=== PATIENT | female | born 1970 | race African-American/Black ===

== ENCOUNTER 2024-09-01 13:43 | Inpatient (IN) ==
--- NOTE | 2024-09-01 15:56 | Emergency Department Note ---
Impression & Plan Cervical radiculopathy, Chest pain, Hypertension, Uncontrolled pain ED Provider Note CHIEF COMPLAINT: Neck pain HISTORY OF PRESENTING ILLNESS: This 54-year-old female patient presents to the emergency department for evaluation of neck pain. The patient states that she injured the left side of her neck on 08/15/2024. 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 The patient states that she was seen at the [facility] and was also seen by orthopedics and had x-rays and MRIs performed. She states she was prescribed meloxicam, lidocaine patches, and prednisone without improvement of her symptoms. The pain is on the left side of her neck radiating into her left arm and left shoulder. She was prescribed Plaquenil, but it caused too many side effects and she had to stop them. She was started on a muscle relaxer without improvement of her symptoms. She has also tried Voltaren ointment, heat, ice, and Tylenol with no improvement. The patient is on a waiting list to see pain management and is also in the process of getting set up with physical therapy. The patient states that she is here for pain relief to be able to make it to her appointment with pain management on 09/05/24. She rates her discomfort as 10/10. The pain is limiting her from doing her normal activities, doing her work, and causes her to wake up from sleep frequently due to the pain. She denies abdominal pain, nausea, or vomiting. Sometimes has some pain radiating into her chest. Increased pain with taking a deep breath, but not really SOB. X-rays of the left shoulder on 08/16/2024 showed no acute fracture, dislocation, or significant degenerative change. X-rays of the cervical spine on 08/18/2024 showed degenerative changes, but no acute fracture, subluxation, or other acute abnormalities. The patient's orthopedic office visit from 08/18/2024 was reviewed and they suspected cervical spine pathology with radicular left arm pain. They recommended she follow-up with physical therapy, pain management, and spine surgery. They ordered the MRI of the cervical spine. MRI of the cervical spine without contrast on 08/21/2024 showed multilevel degenerative changes of the cervical spine, most advanced at C5/C6 and C6/C7. Spinal canal narrowing most severe at C6/C7 and of a slightly lesser degree at C5/C6. 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 Varying degrees of bilateral neuroforaminal narrowing including severe narrowing at C5/C6 and C6/C7. High-grade left neuroforaminal narrowing at C7/T1 has slightly increased which is potentially contributing to the symptoms. REVIEW OF SYSTEMS: See HPI for pertinent positives and pertinent negatives. ALLERGIES: Red dye MEDICATIONS: See below PAST MEDICAL HISTORY: See below PHYSICAL EXAM: VITALS: Vitals are noted on the nurse's note and reviewed by myself. GENERAL: Non toxic, in no acute distress, non-diaphoretic. SKIN: No erythema, edema, or abnormal rashes noted to the area of discomfort. Capillary refill <2 sec. EYES: PERRLA. EOMI. Conjunctivae without injection, sclerae without icterus. NOSE: Patent without discharge. MOUTH: Mucous membranes moist. Uvula midline. Airway patent. NECK: Supple without nuchal rigidity. The patient is tender to palpation mainly over the left-sided paraspinal muscles, the left trapezius muscles, and the left sternocleidomastoid muscles. She is able to move her neck, but with increased pain with looking to the right. HEART: Regular rate and rhythm without murmurs gallops or rubs. LUNGS: Clear to auscultation bilaterally without wheezes, rales or rhonchi. No retractions or accessory muscle use. CHEST: Mild tenderness to palpation over the left anterior chest wall. No fracture crepitus or flail chest noted. ABDOMEN: Positive bowel sounds x 4. Normal tympanic percussion. Soft, nontender to palpation. No masses or hepatosplenomegaly. Jenkins sign negative. No CVA tenderness. No guarding, rigidity, or rebound tenderness. No focal RLQ or LLQ tenderness. MUSCULOSKELETAL: The patient is tender to palpation over the musculature of the left shoulder. She also has some left humerus tenderness that she feels is more in her bone rather than her muscles. No other bony tenderness to palpation of the left upper extremity. Decreased range of motion of the left shoulder due to the muscle spasm and pain. Radial pulse 2+. No erythema, edema, warmth, or cording of the left upper extremity noted. Normal sensation to light and sharp touch of the left upper extremity. NEURO: Patient was alert and oriented. No focal neurological deficits. DIFFERENTIAL DIAGNOSIS: Differential diagnosis includes cervical strain, fracture, cervical disc disease, lymphadenitis, meningitis, tumor, arterial dissection, thyroiditis, parotitis, mastoiditis, neurologic, angina, HI, pericarditis, myocarditis, aortic dissection, pleurisy, pneumothorax, PE, pneumonia, pneumomediastinum, esophagitis, esophageal spasm, GERD, perforated esophagus, perforated duodenal/gastric ulcer, pancreatitis, cholecystitis, costochondritis, musculoskeletal, bronchitis, URI, or others. ED COURSE AND MEDICAL DECISION MAKING: MEDICATIONS GIVEN: Valium 5 mg IV, Toradol 10 mg IV, Tylenol 1000 mg IV, morphine 4 mg IV, Zofran 4 mg IV, Decadron 10 mg IV, Benadryl 50 mg IV. There is currently a severe shortage of IV fluids. The patient's condition was assessed and did not meet hospital criteria for IV fluid administration at this time. Therefore, IV fluids were not given. MONITOR: Continuous construction secretary: Order was placed for continuous construction secretary. Patient was placed on the construction secretary and continuous pulse ox. Patient was noted to be in normal sinus rhythm at an initial rate of 96 bpm per my interpretation. EKG: EKG was interpreted by myself as normal sinus rhythm at 92 bpm with no acute ST or T wave changes and no significant change from her previous EKG. INTERPRETATION OF LABS: I interpreted the labs with full lab results as below in the lab section of this note. Laboratory results pertinent to the emergent complaint are discussed in the MDM section below. The patient was advised to follow up with their PCP and/or specialist(s) for further outpatient monitoring and management of any abnormal results. INTERPRETATION OF IMAGING: Imaging studies were interpreted by myself and read by radiology as per the imaging section of this note. The patient was advised to follow up with their PCP and/or specialist(s) for further outpatient management of any non-emergent abnormal findings. X-rays of the left humerus were negative for acute fracture or dislocation. CTA of the chest with IV contrast showed no evidence for PE. There is cardiomegaly with evidence of right heart dysfunction. EXTERNAL RECORDS REVIEWED: I reviewed the patient's outpatient [facility] records and imaging studies as summarized above. CONSULTATIONS: On-call hospitalist [facility] SUMMARY: I examined the patient. The patient developed pain to the left side of her neck on 08/15/2024 after lifting a heavy box while moving things in her office. She was seen at the [facility] walk-in clinic as well as by [facility] orthopedics. She has had x-rays and MRIs performed as above. She has tried multiple medications as above without improvement of her symptoms. She has an appointment with pain management on 09/05/24 and is in the process of getting in with physical therapy as well. However, the patient states that she still is having significant pain that is not well-controlled. An IV lock was placed and labs were drawn. CBC without leukocytosis, anemia, or thrombocytopenia. Coags were normal. Glucose 107, but CMP was otherwise normal. Lipase normal. High-sensitivity troponin normal. X-rays of the left humerus were negative for acute fracture or dislocation. CTA of the chest with IV contrast showed no evidence for PE. There is cardiomegaly with evidence of right heart dysfunction. The patient required multiple medications for her symptoms as above. She has also failed multiple medications as an outpatient as discussed above. The patient's blood pressure remains significantly elevated despite multiple medications to control her pain as above. I had a meaningful discussion about this patient with Dr. Manzo who agrees with my assessment and the treatment plan. Due to the patient's continued significant pain, her MRI findings, her elevated blood pressure, and the CTA findings, we feel the patient would benefit from admission for further evaluation and treatment. The patient can undergo further cardiac workup if indicated. It can also be determined whether the patient's elevated blood pressure was secondary to a hypertensive crisis or just poorly controlled high blood pressure. The patient has had trouble getting in with physical therapy, pain management, and spinal surgery as an outpatient and this may be able to be facilitated during her inpatient stay. I spoke with the on-call hospitalist who agreed to admit the patient for further evaluation and treatment. Please refer to their dictation for further details. The patient's care was transferred in stable condition. DIAGNOSIS: Cervical radiculopathy Chest pain Hypertensive crisis vs poorly controlled hypertension Uncontrolled pain Past Med/Surg History Problem List (Updated 09/02/24 @ 01:28 by Arabella Fuentes PA-C) Uncontrolled pain (Acute) Hypertension (Acute) Chest pain (Acute) Cervical radiculopathy (Acute) No pertinent past medical history Calf pain (Acute) Medical History H/O: HTN (hypertension) Surgical History No pertinent past surgical history Social History Smoking Status: Never smoker Preferred Language: Indonesian Feels Safe at Home: Yes Allergies Allergies Allergy/AdvReac Type Severity Reaction Status Date / Time red dye Allergy Severe welts/hives Unverified 11/11/20 20:56 all over body Home Meds Home Medications Medication Instructions Recorded Confirmed biotin 1,000 mcg chewable tablet 1,000 mcg PO DAILY 08/07/20 11/11/20 cholecalciferol (vitamin D3) 125 125 mcg PO DAILY 08/07/20 11/11/20 mcg (5,000 unit) tablet (Vitamin D3) elderberry fruit 0.7 gram-honey 3 15 ml PO DAILY 08/07/20 11/11/20 gram/7.5 mL oral liquid elderberry fruit 200 mg capsule 1,000 mg PO DAILY 08/07/20 11/11/20 ferrous sulfate 325 mg (65 mg 325 mg PO DAILY 08/07/20 11/11/20 iron) capsule,extended release hydrochlorothiazide 12.5 mg capsule 12.5 mg PO QAM 08/07/20 11/11/20 ibuprofen 200 mg tablet 800 mg PO Q6H PRN fever/pain 08/07/20 11/11/20 lysine 1,000 mg tablet 1,000 mg PO DAILY 08/07/20 11/11/20 multivitamin 1 tab PO DAILY 08/07/20 11/11/20 multivitamin with minerals 1 tab PO DAILY 08/07/20 11/11/20 (Hair,Skin and Nails tablet) omeprazole 20 mg capsule,delayed 20 mg PO QAM 08/07/20 11/11/20 release potassium 99 mg tablet 99 mg PO QAM 08/07/20 11/11/20 soy isoflavone 56 mg-black cohosh 1 cap PO DAILY 08/07/20 11/11/20 ext 40 mg-Cissus ext 300 mg capsule ([facility] [facility]) valacyclovir 500 mg tablet 500 mg PO DAILY PRN flare ups 11/11/20 11/11/20 Previous Rx's Medication Instructions Recorded naproxen 500 mg tablet 500 mg PO BID PRN pain #20 tabs 07/02/23 Results & Data (ED) Vital Signs Vital Signs - 24 hr 09/01/24 13:53 09/01/24 16:11 09/01/24 16:30 Temperature 36.6 C Temperature Source Temporal Artery Scan Pulse Rate 101 H 98 H 91 H Pulse Rate from SpO2 Sensor 94 H Pulse Rhythm Regular Respiratory Rate 17 18 23 Blood Pressure 180/128 H 193/110 H Blood Pressure Mean 145 133 Pulse Oximetry 98 98 99 Oxygen Delivery Method Room Air Room Air Sepsis Recent Fever Within 48 Hours No Sepsis New/Unexplained Change in Mental Status N/A Sepsis Action Taken by Nursing No Action Required 09/01/24 16:34 09/01/24 17:00 09/01/24 19:00 Temperature Temperature Source Pulse Rate 90 107 H 95 H Pulse Rate from SpO2 Sensor Pulse Rhythm Respiratory Rate 14 18 Blood Pressure 175/110 H 190/120 H Blood Pressure Mean 131 143 Pulse Oximetry 98 97 Oxygen Delivery Method Room Air Sepsis Recent Fever Within 48 Hours Sepsis New/Unexplained Change in Mental Status Sepsis Action Taken by Nursing 09/01/24 20:28 09/01/24 21:49 09/01/24 22:00 Temperature Temperature Source Pulse Rate 79 106 H Pulse Rate from SpO2 Sensor Pulse Rhythm Respiratory Rate 16 18 Blood Pressure 159/101 H 205/129 H 190/116 H Blood Pressure Mean 120 154 152 Pulse Oximetry 96 95 Oxygen Delivery Method Sepsis Recent Fever Within 48 Hours Sepsis New/Unexplained Change in Mental Status Sepsis Action Taken by Nursing 09/01/24 22:00 09/01/24 22:21 09/01/24 22:36 Temperature Temperature Source Pulse Rate 104 H 106 H 107 H Pulse Rate from SpO2 Sensor 105 H 106 H 107 H Pulse Rhythm Respiratory Rate 18 15 16 Blood Pressure Blood Pressure Mean Pulse Oximetry 95 94 94 Oxygen Delivery Method Sepsis Recent Fever Within 48 Hours Sepsis New/Unexplained Change in Mental Status Sepsis Action Taken by Nursing 09/01/24 23:00 09/01/24 23:00 09/01/24 23:00 Temperature Temperature Source Pulse Rate 105 H Pulse Rate from SpO2 Sensor 103 H Pulse Rhythm Respiratory Rate 20 Blood Pressure 161/105 H 161/105 H Blood Pressure Mean 128 128 Pulse Oximetry 94 Oxygen Delivery Method Sepsis Recent Fever Within 48 Hours Sepsis New/Unexplained Change in Mental Status Sepsis Action Taken by Nursing 09/01/24 23:00 09/01/24 23:00 09/01/24 23:00 Temperature Temperature Source Pulse Rate 95 H Pulse Rate from SpO2 Sensor Pulse Rhythm Respiratory Rate Blood Pressure 161/105 H 161/105 H 161/105 H Blood Pressure Mean 128 128 128 Pulse Oximetry 96 Oxygen Delivery Method Sepsis Recent Fever Within 48 Hours Sepsis New/Unexplained Change in Mental Status Sepsis Action Taken by Nursing 09/01/24 23:36 09/01/24 23:54 09/02/24 00:00 Temperature Temperature Source Pulse Rate 98 H 99 H Pulse Rate from SpO2 Sensor 99 H 99 H Pulse Rhythm Respiratory Rate 15 17 Blood Pressure 198/111 H 161/106 H Blood Pressure Mean 140 132 Pulse Oximetry 96 95 Oxygen Delivery Method Sepsis Recent Fever Within 48 Hours Sepsis New/Unexplained Change in Mental Status Sepsis Action Taken by Nursing 09/02/24 00:00 09/02/24 00:06 09/02/24 00:18 Temperature Temperature Source Pulse Rate 98 H 99 H Pulse Rate from SpO2 Sensor 99 H 99 H Pulse Rhythm Respiratory Rate 17 16 Blood Pressure 161/106 H Blood Pressure Mean 132 Pulse Oximetry 96 96 Oxygen Delivery Method Sepsis Recent Fever Within 48 Hours Sepsis New/Unexplained Change in Mental Status Sepsis Action Taken by Nursing 09/02/24 00:20 09/02/24 00:20 09/02/24 00:20 Temperature Temperature Source Pulse Rate Pulse Rate from SpO2 Sensor Pulse Rhythm Respiratory Rate Blood Pressure 177/120 H 177/120 H 177/120 H Blood Pressure Mean 138 138 138 Pulse Oximetry Oxygen Delivery Method Sepsis Recent Fever Within 48 Hours Sepsis New/Unexplained Change in Mental Status Sepsis Action Taken by Nursing 09/02/24 00:30 09/02/24 00:30 Temperature Temperature Source Pulse Rate 99 H Pulse Rate from SpO2 Sensor 100 H Pulse Rhythm Respiratory Rate 15 Blood Pressure 155/92 H Blood Pressure Mean 110 Pulse Oximetry 95 Oxygen Delivery Method Sepsis Recent Fever Within 48 Hours Sepsis New/Unexplained Change in Mental Status Sepsis Action Taken by Nursing Laboratory Data 09/01/24 16:25 09/01/24 16:25 Lab Results 09/01/24 Range/Units 16:25 WBC 6.76 (4.8-10.8) K/ul RBC 4.17 L (4.20-5.40) M/uL Hgb 12.5 (12.0-16.0) g/dl Hct 37.7 (37.0-47.0) % MCV 90.4 (80.0-100.0) fL MCH 30.0 (25.0-34.0) pg MCHC 33.2 (32.0-36.0) g/dL RDW Std Deviation 42.9 (36.4-46.3) fL RDW Coeff of Alfie 13.0 (11.5-14.5) % Plt Count 252 (130-400) K/uL MPV 9.9 (9.4-12.4) fL Immature Gran % (Auto) 0.3 % Neut % (Auto) 61.7 % Lymph % (Auto) 31.2 % Hardeman % (Auto) 5.8 % Eos % (Auto) 0.7 % Baso % (Auto) 0.3 % Neut # (Auto) 4.17 (1.40-6.50) K/uL Lymph # (Auto) 2.11 (1.20-3.40) K/uL Hardeman # (Auto) 0.39 (0.11-0.59) K/uL Eos # (Auto) 0.05 (0.00-0.50) K/uL Baso # (Auto) 0.02 (0.00-0.20) K/uL Immature Gran # (Auto) 0.02 (0.01-0.20) K/uL PT 10.3 (9.0-12.0) Seconds INR 0.9 (0.9-1.1) APTT 24 (21-31) Seconds PTT Ratio 0.9 Sodium 139 (136-145) mmol/L Potassium 3.6 (3.5-5.1) mmol/L Chloride 101 (98-107) mmol/L Carbon Dioxide 31 (21-32) mmol/L Anion Gap 7 (3-11) BUN 12 (6-23) mg/dl Creatinine 0.69 (0.6-1.2) mg/dl Est Cr Clr Drug Dosing Not Reportable eGFR 104.36 BUN/Creatinine Ratio 17.4 (10-20) Glucose 107 H (70-99(Fasting)) mg/dl Calcium 9.3 (8.6-10.3) mg/dl Total Bilirubin 0.6 (0.2-1.0) mg/dl AST 25 (13-39) U/L ALT 45 (7-52) U/L Alkaline Phosphatase 80 (34-104) U/L Troponin I High Sens 8.7 (0-14) pg/ml Total Protein 8.2 (6.0-8.3) gm/dl Albumin 4.4 (3.4-5.0) gm/dl Globulin 3.8 (2.5-4.0) gm/dl Albumin/Globulin Ratio 1.2 (0.9-2) Lipase 16 (11-82) U/L Administered Medications Discontinued Medications Dexamethasone Sodium Phosphate (DexamethasonePf 10 Mg/Ml Vial) 10 mg IV NOW ONE Stop: 09/01/24 19:04 Last Admin: 09/01/24 19:50 Dose: 10 mg Documented By: AIDEE Diazepam (Diazepam 5 Mg/Ml 10ml Vial) 5 mg IV NOW STA Stop: 09/01/24 16:12 Last Admin: 09/01/24 16:35 Dose: 5 mg Documented By: TATIANA Diphenhydramine HCl (Diphenhydramine 50 Mg/Ml Vial) 50 mg IV NOW STA Stop: 09/01/24 19:30 Last Admin: 09/01/24 19:50 Dose: 50 mg Documented By: AIDEE Acetaminophen (Ofirmev) 1,000 mg in 100 mls @ 400 mls/hr IV NOW STA Stop: 09/01/24 17:06 Last Infusion: 09/01/24 17:14 Dose: Infused Documented By: Admin: 09/01/24 16:58 Dose: 400 mls/hr Documented By: FELICE Enalaprilat 1.25 mg/ Dextrose 26 mls @ 100 mls/hr IV NOW STA Stop: 09/02/24 00:04 Last Infusion: 09/02/24 00:42 Dose: Infused Documented By: Admin: 09/02/24 00:21 Dose: 100 mls/hr Documented By: ERIC Ioversol (Optiray 320 100ml) 116 ml IV ONCE ONE Stop: 09/01/24 18:04 Last Admin: 09/01/24 18:03 Dose: 116 ml Documented By: JULIO Ketorolac Tromethamine (Ketorolac Tromethamine 15 Mg/Ml Vial) 10 mg IV NOW ONE Stop: 09/01/24 16:12 Last Admin: 09/01/24 16:35 Dose: 10 mg Documented By: TATIANA Labetalol HCl (Labetalol Hcl Iv 5 Mg/Ml 20ml) 10 mg IV NOW STA Stop: 09/01/24 22:40 Last Admin: 09/01/24 22:54 Dose: 10 mg Documented By: AIDEE Morphine Sulfate (Morphine Sulfate 4 Mg/Ml 1 Ml Carp\Vial) 4 mg IV NOW STA Stop: 09/01/24 17:30 Last Admin: 09/01/24 17:36 Dose: 4 mg Documented By: SRL Ondansetron HCl (Ondansetron Inj 2 Mg/Ml 2 Ml Vial) 4 mg IV NOW STA Stop: 09/01/24 17:30 Last Admin: 09/01/24 17:36 Dose: 4 mg Documented By: TATIANA Imaging Data Radiologist's Impression: Chest CTA 09/01/24 16:11 EXAM: CT Angiography Chest With Intravenous Contrast INDICATION: Chest pain. TECHNIQUE: Axial computed tomographic angiography images of the chest with intravenous contrast. Sagittal and coronal reformatted images were created and reviewed. This CT exam was performed using one or more of the following dose reduction techniques: automated exposure control, adjustment of the mA and/or kV according to patient size, and/or use of iterative reconstruction technique. MIP reconstructed images were created and reviewed. 116 cc Optiray 320 utilized intravenously. COMPARISON: No relevant prior studies available. FINDINGS: Pulmonary arteries: No abnormality noted. No pulmonary embolism. Aorta: No acute change noted. No thoracic aortic aneurysm or dissection. Lungs and pleural spaces: There is mild dependent atelectasis in the left lower lobe. No consolidation or pulmonary edema. No pleural effusion or pneumothorax. Heart: Cardiomegaly. Left ventricular hypertrophic change noted. The right ventricle is asymmetrically dilated slightly. No pericardial effusion. Bones/joints: Mild degenerative changes noted throughout the spine. No acute osseous abnormality. Soft tissues: Visualized bilateral breast prostheses intact. Lymph nodes: No abnormality noted. No enlarged lymph nodes. IMPRESSION: 1. Cardiomegaly with evidence of right heart dysfunction. 2. No angiographic abnormality in the chest. ACT 112: Negative or not required by law. Electronically signed by Fe Chen 09-01-2024 6:58 PM Humerus X-Ray 09/01/24 16:11 EXAM: Radiographs of the Left Humerus 2 Views INDICATION: Pain. TECHNIQUE: Frontal and lateral views of the left humerus. COMPARISON: No relevant prior studies available. FINDINGS: Limitations: None. Bones/joints: No fracture, erosion or dislocation. Soft tissues: No abnormality noted. No radiopaque foreign body noted. IMPRESSION: No abnormality noted. ACT 112: Negative or not required by law. Electronically signed by Fe Chen 09-01-2024 6:13 PM Discharge Plan Visit Data Chief Complaint: Neck Injury/Pain Stated Complaint: LT NECK SIDE, LT ARM, SHOULDER, DOWN CHEST ED Provider: Marcus Manzo ED Midlevel Provider: Arabella Fuentes Discharge Problem: Cervical radiculopathy, Chest pain, Hypertension, Uncontrolled pain Patient Disposition: Admitted As Inpatient Condition: Good Forms Stand Alone Forms: [facility] Referrals Referrals: PCP,NO [Primary Care Provider] - Discharge Problem: Chest pain Qualifiers: Chest pain type: unspecified Qualified Code(s): R07.9 - Chest pain, unspecified Hypertension Qualifiers: Hypertension type: unspecified Qualified Code(s): I10 - Essential (primary) hypertension
[2024-09-01] MEDS: diazePAM 5 MG/ML 10ML VIAL IV STA (16:35)
[2024-09-01] MEDS: KETOROLAC TROMETHAMINE 15 MG/ML VIAL IV ONE (16:35)
[2024-09-01 16:50] LABS: Basophils # (auto) 0.02 K/uL (0.00-0.20); Basophils % (auto) 0.3 %; Eosinophils # (auto) 0.05 K/uL (0.00-0.50); Eosinophils % (auto) 0.7 %; Hematocrit (blood only) 37.7 % (37.0-47.0); Hemoglobin 12.5 g/dl (12.0-16.0); Immature Granulocytes # (auto) 0.02 K/uL (0.01-0.20); Immature Granulocytes % (auto) 0.3 %; Lymphocytes # (auto) 2.11 K/uL (1.20-3.40); Lymphocytes % (auto) 31.2 %; Mean Corpuscular Hgb Conc 33.2 g/dL (32.0-36.0); Mean Corpuscular Volume 90.4 fL (80.0-100.0); Mean Platelet Volume 9.9 fL (9.4-12.4); Monocytes # (auto) 0.39 K/uL (0.11-0.59); Monocytes % (auto) 5.8 %; Neutrophils # (auto) 4.17 K/uL (1.40-6.50); Neutrophils % (auto) 61.7 %; Platelet Count 252 K/uL (130-400); RDW Standard Deviation 42.9 fL (36.4-46.3); Red Blood Count 4.17 M/uL (4.20-5.40); White Blood Count 6.76 K/ul (4.8-10.8)
[2024-09-01] MEDS: ACETAMINOPHEN 1,000 MG/100 ML VIAL IV STA (16:58)
[2024-09-01 17:08] LABS: Alanine Aminotransferase 45 U/L (7-52); Albumin Globulin Ratio 1.2 (0.9-2); Albumin Level 4.4 gm/dl (3.4-5.0); Alkaline Phosphatase 80 U/L (34-104); Anion Gap 7 (3-11); Aspartate Aminotransferase 25 U/L (13-39); BUN Creatinine Ratio 17.4 (10-20); Bilirubin,Total 0.6 mg/dl (0.2-1.0); Blood Urea Nitrogen 12 mg/dl (6-23); Calcium 9.3 mg/dl (8.6-10.3); Carbon Dioxide 31 mmol/L (21-32); Chloride 101 mmol/L (98-107); Globulin 3.8 gm/dl (2.5-4.0); Glucose 107 mg/dl (70-99(Fasting)); Lipase 16 U/L (11-82); Potassium 3.6 mmol/L (3.5-5.1); Sodium 139 mmol/L (136-145); Total Protein 8.2 gm/dl (6.0-8.3)
[2024-09-01 17:13] LABS: Troponin I High Sensitivity 8.7 pg/ml (0-14)
[2024-09-01 17:28] LABS: INR 0.9 (0.9-1.1); Partial Thromboplastin Ratio 0.9; Partial Thromboplastin Time 24 Seconds (21-31); Prothrombin Time 10.3 Seconds (9.0-12.0)
[2024-09-01] MEDS: ONDANSETRON INJ 2 MG/ML 2 ML VIAL IV STA (17:36)
[2024-09-01] MEDS: MoRPHine SULFATE 4 MG/ML 1 ML CARP\\VIAL IV STA (17:36)
[2024-09-01] MEDS: OPTIRAY 320 100ml IV ONE (18:03)
--- NOTE | 2024-09-01 18:14 | XRay Report ---
EXAM: Radiographs of the Left Humerus 2 Views INDICATION: Pain. TECHNIQUE: Frontal and lateral views of the left humerus. COMPARISON: No relevant prior studies available. FINDINGS: Limitations: None. Bones/joints: No fracture, erosion or dislocation. Soft tissues: No abnormality noted. No radiopaque foreign body noted. IMPRESSION: No abnormality noted. ACT 112: Negative or not required by law. Electronically signed by Fe Chen 09-01-2024 6:13 PM
--- NOTE | 2024-09-01 18:58 | CT Scan Report ---
EXAM: CT Angiography Chest With Intravenous Contrast INDICATION: Chest pain. TECHNIQUE: Axial computed tomographic angiography images of the chest with intravenous contrast. Sagittal and coronal reformatted images were created and reviewed. This CT exam was performed using one or more of the following dose reduction techniques: automated exposure control, adjustment of the mA and/or kV according to patient size, and/or use of iterative reconstruction technique. MIP reconstructed images were created and reviewed. 116 cc Optiray 320 utilized intravenously. COMPARISON: No relevant prior studies available. FINDINGS: Pulmonary arteries: No abnormality noted. No pulmonary embolism. Aorta: No acute change noted. No thoracic aortic aneurysm or dissection. Lungs and pleural spaces: There is mild dependent atelectasis in the left lower lobe. No consolidation or pulmonary edema. No pleural effusion or pneumothorax. Heart: Cardiomegaly. Left ventricular hypertrophic change noted. The right ventricle is asymmetrically dilated slightly. No pericardial effusion. Bones/joints: Mild degenerative changes noted throughout the spine. No acute osseous abnormality. Soft tissues: Visualized bilateral breast prostheses intact. Lymph nodes: No abnormality noted. No enlarged lymph nodes. IMPRESSION: 1. Cardiomegaly with evidence of right heart dysfunction. 2. No angiographic abnormality in the chest. ACT 112: Negative or not required by law. Electronically signed by Fe Chen 09-01-2024 6:58 PM
[2024-09-01] MEDS: diphenhydrAMINE 50 MG/ML VIAL IV STA (19:50)
[2024-09-01] MEDS: dexAMETHasone**PF** 10 MG/ML VIAL IV ONE (19:50)
[2024-09-01] MEDS: LABETALOL HCL IV 5 MG/ML 20ML IV STA (22:54)
--- OUTSIDE RECORDS SUMMARY | 2024-09-01 23:52 | External Medical Summary | Summary of Care ---
Author Name Unknown Organization [facility] Address [address] [place] [address] Phone [phone] Care Team Providers Care Audiometric Technician Name Role Phone JoselynAngie fernandez Funmilayo CHAVEZ Primary Care Provider [phone] Reason for Visit * Reason Onset Date Comments Patient Access Records Request 09/01/2024 Encounter Details Date Type Department Care Team (Late st Contact Info) Description 09/01/2024 Telephone Radiology Film File [address] [place] [address] Support, Imaging Radiology [address] [place] [address] Patient Access Records Request Allergies Active Allergy Reactions Criticality Noted Date Comments Food (See Comments) Hives Medium 08/11/2013 Red beans per pt - Claritza Brand Red Dye #40 (Allura Red) Hives 11/02/2022 [place] patch sized welts-generalized areas documented as of this encounter (statuses as of 09/01/2024) Medications Hydrocortisone 2.5 % External OintmentIndicati ons:Dermatitis Apply to neck, shoulders nightly as needed 20 g 1 3 Active Albuterol Sulfate HFA 108 (90 Base) MCG/ACT Inhalation Aerosol Solution Inhale 2 Puffs by mouth every 6 hours as needed for Cough, Shortness of Breath or Wheezing. 3 Active BD Assure BPM/Manual Arm Cuff Use twice daily as needed. 3 Active Fluocinolone Acetonide Scalp 0.01 % External Oil ([place]-Smoothe/F S) Apply to scalp every other night, as needed 3 Active Ketoconazole 2 % External Cream Apply to neck and chest once daily x 2-3 weeks as needed. 3 Active Acetaminophen ER 650 MG Oral Tablet Extended Release (Tylenol ER) Take 1 Tablet by mouth every 8 hours as needed for Pain, Severe. 3 Active Hair Skin and Nails Formula Oral Tablet Take 1 tablet daily. 3 Active hydroCHLOROthiaz john paul 12.5 MG Oral CapsuleIndicatio ns:HTN, goal below 130/80 Take 1 Capsule by mouth in the morning. 90 Capsule 3 4 Active Famotidine 20 MG Oral Tablet (Pepcid)Indicati ons:Gastroesopha geal reflux disease without esophagitis Take 1 Tablet by mouth in the morning. 90 Tablet 3 4 Active Omeprazole 20 MG Oral Capsule Delayed Release (PriLOSEC) Take 1 tablet daily as needed for heartburn. 90 Capsule 1 4 Active Benzonatate 100 MG Oral Capsule (Tessalon Perles)Indicatio ns:Viral URI with cough Take 1 Capsule by mouth 3 times a day as needed for Cough. Do not cut, crush, or chew. 50 Capsule 1 4 Active valACYclovir HCl 500 MG Oral Tablet (Valtrex)Indicat ions:Recurrent genital herpes TAKE 1 TAB TWICE DAILY X3 DAYS FOR EPISODIC OUTBREAK OF GENITAL HERPES 30 Tablet 1 4 Active Meloxicam 15 MG Oral Tablet (Mobic)Indicatio ns:Acute pain of left shoulder Take 1 Tablet by mouth in the morning. for pain.. 30 Tablet 5 09/14/19 25 Active tiZANidine HCl 4 MG Oral Tablet (Zanaflex) Take 1 Tablet by mouth at bedtime as needed for Muscle spasms. 10 Tablet 5 Active predniSONE 10 MG Oral Tablet (Deltasone) 5 tablets x 5 days, then 4 tablets x 1 day, then 3 tablets x 1 day, then 2 tablets x 1 day, then 1 tablets x 1 day 35 Tablet 5 Active documented as of this encounter (statuses as of 09/01/2024) Active Problems Problem Noted Date Diagnosed Date Diabetes mellitus without complication 4 Major depressive disorder, recurrent episode, mo derate 11/08/2023 Viral upper respiratory tract infection 09/10/19 24 Assessment & Plan (09/12/2023 3:45 PM EST): Likely viral. History reassuring. Discussed supportive care treatments and return parameters. Work note provided. Home covid test negative but she intends to wear a mask upon returning to work. Recommend in-person exam if symptoms persist/worsen. Food insecurity 06/14/2023 Overview: Per [facility] Protocol History of anemia 01/30/2021 Conductive hearing loss of r ight ear with unrestricted hearing of left ear 06/26/2020 Tinnitus of both ears 06/24/2020 Osteoarthritis of spine with radiculopathy, cerv ical region 08/04/2018 Abnormal EKG 02/18/2018 Well woman exam with routine gynecological exam 01/24/2018 HTN, goal below 130/80 01/13/2018 Urticaria 08/23/2013 Overview (08/23/2013): Aug.07,2013. Esophageal reflux 12/13/2008 Irritable bowel syndrome 12/13/2008 documented as of this encounter (statuses as of 09/01/2024) Resolved Problems Problem Noted Date Diagnosed Date Resolved Date Food insecurity 03/10/2021 09/16/2022 Overview: Per [facility] Protocol Prediabetes 03/11/2020 08/17/2024 Overview: Per Prediabetes protocol Moderate episode of recurren t major depressive disorder 09/01/2019 12/03/2021 Difficult airway for intubation 07/18/2018 07/18/2018 Overview (07/18/2018): See the difficult airway letter, patient on cervical spine collar and need pediatric glides-cope MAC 2.5 for intubation Copy of letter: RE: MR# [id number] Dear Megan Amin, During your recent health care encounter at [facility], your treatment required breathing management through the use of specialized equipment. Endotracheal intubation was performed, a procedure that involves placement of a tube in your trachea using an instrument called a laryngoscope. Since you have a cervical collar on per your orthopedic MD reference before surgery because of your pr- existed cervical spine diseases, we plan for video guided intubation with inline cervical collar on and neck stablization to start the intubation. When the procedure was performed, your vocal cords could not be visualized using adult size MAC 3 glide-scope and we have to use our pediatric glide-scope MAC 2 for your intubation. If you needed to have a breathing tube placed we would recommend a special type of airway tool called a fibre optic bronchoscope with smaller ET tube. Your particular airway anatomy and the difficulty we encountered should not prevent you from future endotracheal intubations for general anesthesia or mechanical ventilation. We would like you to keep this letter and present it to future physicians, including anesthesiologists and intensive care physicians, who may evaluate you prior to surgery or for critical illness. If you need surgery, anesthesia, or mechanical ventilation at the [facility], we would like you or your healthcare proxy to tell your physicians to check your previous records regarding airway management. If you need similar services at another institution, we would advise you to inform your treating physicians of this problem. If you would like to discuss this further, please do not hesitate to contact us by mail or phone at [phone]. We have included an order form for a medic alert bracelet if you choose to purchase one. Sincerely, Alyce Gomez MD Departments of Anesthesia and Critical Care Medicine [address] [place] [address], [address] [place] [address] Food insecurity 03/15/2018 11/22/2020 Overview: Per [facility] Protocol documented as of this encounter (statuses as of 09/01/2024) Immunizations Name Administration Dates Next Due COVID-19 mRNA, LNP-s, No Pre serve, 2-Dose Series (Silentium) 09/20/2020,08/30/2020 COVID-19, MRNA-LNP, PF, 30 M CG/0.3 mL, 12 YRS AND ABOVE, IM (PFIZER-Comirnaty) 07/22/2023 HEPATITIS B VACCINE, RECOMB, 20 MCG/ML, ADULT (HEPLISAV-B) 07/22/2023,06/18/2023 Pneumococcal Conjugate Vacci ne, 20-valent ([id number]) 08/24/2022 Seasonal Influenza Vac., MDV , IM, 0.5 mL (Fluzone) 09/03/2014,07/11/2012 Seasonal Influenza, PF, 6 M & above, IM , (FluLaval or Fluzone) 06/18/2023,08/24/2022,05/29/2021,2019,06/02/2019 Seasonal Influenza, Quadriva lent, No Preserve, IM 08/05/2016 Seasonal Influenza, Quadriva lent, No Preserve, Mdck 04/18/2020 Seasonal Influenza, Trivalen t, (IIV3), PF, (Fluzone) 07/06/2024 TD, Preservative Free 02/14/2020 TDAP, Age 7 and older, IM (Adacel) 01/28/2010 Zoster Vaccine Recombinant (Shingrix) 01/05/2023 ,08/24/2022 documented as of this encounter Social History Tobacco Use Types Packs/Day Years Used Date Smoking Tobacco: Never Smokeless Tobacco: Never Comments:no passive smoke Alcohol Use Standard Drinks/Week Comments No 0 (1 standard drink = 0.6 oz pur e alcohol) PHQ-2 Answer Date Recorded PHQ Adult Total Score 12 10/19/2022 Hunger Vital Sign Answer Date Recorded Within the past 12 months, y ou worried that your food would run out before you got the money to buy more. Often true 06/11/20 Within the past 12 months, t he food you bought just didn't last and you didn't have money to get more. Often true 06/11/2023 Childcare Answer Date Recorded Do you feel overwhelmed with taking care of a child, family member or friend? Yes 06/11/2023 Does your family need help f inding childcare? (Household - for ages 0-17 years) Not on file 06/11/2023 Clothing Answer Date Recorded Have you been unable to get clothing when it was really needed? No 06/11/2023 Is your family able to get c lothes or diapers when needed? (Household - for ages 0-17 years) Not on file 06/11/2023 Personal Safety Answer Date Recorded Do you feel unsafe or have concerns for your saf ety? Yes 06/11/2023 Do you have concerns for you r family's safety? (Household - for ages 0-17 years) Not on file 06/11/2023 Utilities Answer Date Recorded Do you have trouble paying y our heating, water, or electric bill? Yes 06/11/2023 Is your family able to pay t he heat, water, or electric bill? (Household - for ages 0-17 years) Not on file 06/11/2023 Does your family have access to good internet? (Household - for ages 0-17 years) Not on file 06/11/2023 Employment Status Answer Date Recorded Are you unemployed or without regular income? No 06/11/2023 Does the household have a [facility] source of income? (Household - for ages 0-17 years) Not on file 06/11/2023 Social Connections Answer Date Recorded How often do you feel lonely or isolated from th ose around you? Rarely 06/11/2023 Financial Resource Strain Answer Date R ecorded Do you have any trouble payi ng for your medications, or do you think you might in the future? Yes 06/11/2023 Does your family have troubl e paying for medicine? (Household - for ages 0-17 years) Not on file 06/11/2023 Transportation Needs Answer Date Record ed READ ONLY Do you have troubl e getting a ride to medical visits or work? Never True 06/11/2023 Does your family have a hard time getting a ride to doctors visits? (Household - for ages 0-17 years) Not on file 06/11/2023 Has lack of transportation k ept you from medical appointments, meetings, work, or from getting things needed for daily living? Check all that apply. (Adult - for ages 18 years and over) Not on file 06/11/2023 Do you (or your family) have trouble finding or paying for a ride (transportation)? (Household - for ages 0-17 years) Not on file 06/11/2023 Housing Stability Answer Date Recorded Do you currently live in a s helter or have no steady place to sleep at night? No 06/11/2023 READ ONLY Do you think you a re at risk of becoming homeless? Yes 06/11/2023 Does your family worry about paying for your home or becoming homeless? (Household - for ages 0-17 years) Not on file 1 08/11/2022 Are you homeless or worried that you might be in the future? (Adult - for ages 18 years and over) Not on file Are you (or your family) jerson eless or worried that you might be in the future? (Household - for ages 0-17 years) Not on file Food Insecurity Answer Date Recorded Do you need food for this week? Yes 06/11/2023 Are you able to get enough f ood for your family? (Household - for ages 0-17 years) Not on file 06/11/2023 Does your family need food t his week? (Household - for ages 0-17 years) Not on file 06/11/2023 Do you always have enough fo od for your family? (Household - for ages 0-17 years) Not on file 06/11/2023 Comments No Sex and Gender Information Value Date Recorded Sex Assigned at Female 06/05/2020 8:43 AM EST Legal Sex Female 6:33 AM EST Gender Identity Female 06/05/2020 8:43 AM EST Sexual Orientation Straight 06/05/2020 8: 43 AM EST documented as of this encounter Miscellaneous Notes * Telephone Encounter - Rocco Marquez OSA - 09/01/2024 10:11 AM EST [place] Authorization to Release form on file. Patient called and requested Mrs be sent to [facility] for Dr. Robert Ridley and a CD be sent to [employer],Phyical Therapy [facility] [address], [place] [address]. Mailed on 09/01/2024. Neprissait sent via [employer]oo to Job ID [id number] documented in this encounter Plan of Treatment Upcoming Encounters Date Type Department Care Team (Late st Contact Info) Description 09/22/2024 1:50 PM EST Nutrition Services Nutrition & Weight Management, [facility] [address] [place] [phone] Janet Astorga RDN [address] [facility] [place] [address] 09/28/2024 4:00 PM EST Office Visit Family Practice [facility] [address] [place] [address] Michelle Wright CRNP [address] [place] [address] 09/29/2024 11:00 AM EST Office Visit Orthopaedics Spine Surgery [facility] [address] [place] [phone] Ortiz Jones MD [address] [place] [address] 10/06/2024 10:00 AM EST Office Visit Interventional Pain Center [facility] [address] [place] [phone] Darleen Francis PA-C [address] [place] [address] Scheduled Procedures Name Priority Associated Diagnoses Date/Ti me COLONOSCOPY FLEXIBLE PROXIMAL DIAGNOSTIC Recall Screen for colon cancer Health Maintenance Due Date Last Done Comments Diabetic Eye Exam 1990 Diabetic Foot Exam 1990 HPV/Co-Test 2002 Cologuard 2017 Fecal Occult Blood Test 2017 Sigmoidoscopy 2017 Albumin/Creatinine Ratio 12/03/2022 12/03/2021 Depression Monitoring 10/20/2023 10/19/2022 COVID-19 Vaccine ( season) 2024 07/22/2023, 09/20/2020, 08/30/2020 Cervical Cancer Screening 04/17/2024 Pap Smear 04/17/2024 04/17/2021, 01/30, 09/03/2014, Additional history exists HbA1c 01/29/2025 08/01/2024, 05/0 04/2024, 08/24/2022, Additional history exists GFR 08/01/2025 08/01/2024, 0 04/2024, 09/01/2022, Additional history exists Mammogram 08/28/2025 08/28/2024, 0 03/2024, 08/26/2023, Additional history exists Lipid Panel 08/01/2029 08/01/2024, 0 04/2024, 04/17/2021, Additional history exists DTap/Tdap Vaccines (3 - Td or Tdap) 02/13/2030 02/14/2020, 01/28/2010 Colonoscopy 11/04/2032 11/04/2022, 11/04/2022 Colorectal Cancer Screening 11/04/2032 Pneumococcal Vaccine: 50+ Years Completed 08/24/2022 Zoster Vaccines Completed 01/05/2023, 08/24/2022 Hepatitis B Vaccine Completed 07/22/2023, Influenza Vaccine (FLU shot) Completed 12/2023, 06/18/2023, 08/24/2022, Additional history exists HPV (Gardasil) Vaccine Aged Out No lo nger eligible based on patient's age to complete this topic MENINGOCOCCAL (MENACTRA/MENVEO) Aged Out No longer eligible based on patient's age to complete this topic documented as of this encounter Medical Devices Implanted Type Area Roll Reclaimer Device Identifier Shelf Expiration Date Model / Serial / Lot Mesh 3dmax 3.1x5.3in t Med - [id number] Implanted:Qty: 1 on 07/18/2018 by Daniel Anderson MD at OR [facility] Right: Groin CR BARD : DAVOL 04/29/2023 [id number] / / [id number] documented as of this encounter Care Teams Audiometric Technician Relationship Specialty Start Date End Date Angie Alves DO [address] [place] [id number] PCP - General Family Medicine 11/08/23 documented as of this encounter
--- OUTSIDE RECORDS SUMMARY | 2024-09-01 23:53 | External Medical Summary | Summary of Care ---
Author Name Unknown Organization [facility] Address [address] [place] [address] Phone [phone] Care Team Providers Care Rail Car Painter/Sandblaster Name Role Phone Angie Alves Funmilayo CHAVEZ Primary Care Provider [phone] Reason for Visit * Reason Onset Date Comments Appointment 08/19/2024 Encounter Details Date Type Department Care Team (Late st Contact Info) Description 08/19/[address] [place] [phone] Linda Madsen, RT (M) Appointment Allergies Active Allergy Reactions Criticality Noted Date Comments Food (See Comments) Hives Medium 08/11/2013 Red beans per pt - Claritza Brand Red Dye #40 (Allura Red) Hives 11/02/2022 [place] patch sized welts-generalized areas documented as of this encounter (statuses as of 08/19/2024) Medications Hydrocortisone 2.5 % External OintmentIndicati ons:Dermatitis [...] Fluocinolone Acetonide Scalp 0.01 % External Oil ([place]-Smoothe/F S) Apply to scalp every other night, [...] GENITAL HERPES 30 Tablet 1 4 Active Lidocaine 5 % External Patch (Lidoderm)Indica tions:Acute pain of left shoulder Place 1 Patch over 12 hours topically on the skin daily for 10 days. 10 Patch 5 08/25/19 25 Active Meloxicam 15 MG Oral Tablet (Mobic)Indicatio [...] as of this encounter (statuses as of 08/19/2024) Active Problems Problem Noted Date Diagnosed Date [...] below 130/80 01/13/2018 Urticaria 08/23/2013 Overview (08/23/2013): [id number]. Esophageal reflux 12/13/2008 Irritable bowel syndrome 12/13/2008 documented as of this encounter (statuses as of 08/19/2024) Resolved Problems Problem Noted Date Diagnosed Date [...] for intubation Copy of letter: RE: MR# [id number] Dear Megan Amin, During your recent health care encounter at [facility], your treatment required breathing management through the [...] surgery, anesthesia, or mechanical ventilation at the [facility], we would like you or your healthcare proxy to tell your physicians to check your previous records regarding airway management. If you need similar services at another institution, we would advise you to inform your treating physicians of this problem. If you would like to discuss this further, please do not hesitate to contact us by mail or phone at [phone]. We have included an order form for a medic alert bracelet if you choose to purchase one. Sincerely, Alyce Gomez MD Departments of Anesthesia and Critical Care Medicine [address] [place] [address], [address] [place] [address] Food insecurity 03/15/2018 11/22/2020 Overview: Per [facility] Protocol documented as of this encounter (statuses as of 08/19/2024) Immunizations Name Administration Dates Next Due COVID-19 mRNA, LNP-s, No Pre serve, 2-Dose Series ([place]) 09/20/2020,08/30/2020 COVID-19, MRNA-LNP, PF, 30 M CG/0.3 mL, 12 YRS AND ABOVE, IM (PFIZER-Comirnaty) 07/22/2023 HEPATITIS B VACCINE, RECOMB, 20 MCG/ML, ADULT (HEPLISAV-B) 07/22/2023,06/18/2023 Pneumococcal Conjugate Vacci ne, 20-valent ([id number]) 08/24/2022 Seasonal Influenza Vac., MDV , IM, [...] No 06/11/2023 Does the household have a [facility] source of income? (Household - for ages [...] encounter Miscellaneous Notes * Telephone Encounter - Linda Madsen RT (M) - 08/19/2024 9:15 AM EST If you answer "yes" to any of the following, please give us a call at [phone] before coming to your MRI appointment: Do you have a pacemaker/defibrillator? Do you have any electronic or mechanical implants? Have you had a recent colonoscopy in the last 30 days? Are you or ? Do you work around metal or ever gotten metal in your eyes? Any dermals or body piercing you cannot remove? Do you wear an insulin pump or diabetic monitor? Have you had any tattoos or permanent makeup in the last 4 weeks? LM to arrive at 4:30 AM on 08/21/2024 documented in this encounter Plan of Treatment Upcoming Encounters Date Type Department Care Team (Late st Contact Info) Description 08/21/2024 5:00 PM EST Imaging Radiology [address] [place] [phone] 08/28/2024 10:00 AM EST Imaging Radiology [address] [place] [phone] 09/22/2024 1:50 PM EST Nutrition Services Nutrition & Weight Management, [facility] [address] [place] [address] Janet Astorga RDN [address] [place] [address] 09/29/2024 11:00 AM EST Office Visit Orthopaedics Spine Surgery [facility] [address] [place] [phone] Ortiz Jones MD [address] [place] [address] 10/06/2024 10:00 AM EST Office Visit Interventional Pain Center [facility] [address] [place] [phone] Darleen Francis PA-C [address] [place] [address] Scheduled Procedures Name Priority Associated Diagnoses Date/Ti [...] 04/17/2024 04/17/2021, 01/30, 09/03/2014, Additional history exists Mammogram 09/09/2024 09/09/2023, 08/03, 08/24/2022, Additional history exists HbA1c 01/29/2025 08/01/2024, 05/0 04/2024, 08/24/2022, Additional history exists GFR 08/01/2025 08/01/2024, 05/0 04/2024, 09/01/2022, Additional history exists Lipid Panel 08/01/2029 08/01/2024, 05/0 04/2024, 04/17/2021, Additional history exists DTap/Tdap Vaccines [...] this encounter Medical Devices Implanted Type Area Switch Box Installer Device Identifier Shelf Expiration Date Model / Serial / Lot Mesh 3dmax 3.1x5.3in t Med - [id number] Implanted:Qty: 1 on 07/18/2018 by Daniel Anderson MD at OR [facility] Right: Groin CR BARD : DAVOL 04/29/2023 [id number] / / [id number] documented as of this encounter Care Teams Rail Car Painter/Sandblaster Relationship Specialty Start Date End Date Angie Alves DO [address] [place] [phone] PCP - General Family Medicine 11/08/23 documented as of this encounter
--- OUTSIDE RECORDS SUMMARY | 2024-09-01 23:53 | External Medical Summary | Summary of Care ---
Author Name Unknown Organization [facility] Address [address] [place] [address] Phone [phone] Care Team Providers Care Learning Strategist Name Role Phone Angie Alves DO Primary Care Provider [phone] Reason for Visit * Reason Onset Date Comments Advice 08/31/2024 Encounter Details Date Type Department Care Team (Late st Contact Info) Description 08/31/2024 Telephone Family Practice [facility] [address] [place] [address] Angie Alves DO [address] [place] [address] Advice Allergies Active Allergy Reactions Criticality Noted Date Comments Food (See Comments) Hives Medium 08/11/2013 Red beans per pt - Claritza Brand Red Dye #40 (Allura Red) Hives 11/02/2022 [place] patch sized welts-generalized areas documented as of [...] Fluocinolone Acetonide Scalp 0.01 % External Oil ([place]-Smoothe/F S) Apply to scalp every other night, [...] for intubation Copy of letter: RE: MR# [id number] Dear Megan Amin, During your recent health care encounter at [facility], your treatment required breathing management through [...] surgery, anesthesia, or mechanical ventilation at the [facility], we would like you or your healthcare proxy to tell your physicians to check your previous records regarding airway management. If you need similar services at another institution, we would advise you to inform your treating physicians of this problem. If you would like to discuss this further, please do not hesitate to contact us by mail or phone at [phone]. We have included an order form for a medic alert bracelet if you choose to purchase one. Sincerely, Alyce Gomez MD Departments of Anesthesia and Critical Care Medicine [address] [place] [address], [address] [place] [address] Food insecurity 03/15/2018 11/22/2020 Overview: Per [facility] Protocol documented as of this encounter (statuses as of 09/01/2024) Immunizations Name Administration Dates Next Due COVID-19 mRNA, LNP-s, No Pre serve, 2-Dose Series (Pay[employer]ies) 09/20/2020,08/30/2020 COVID-19, MRNA-LNP, PF, 30 M CG/0.3 mL, 12 YRS AND ABOVE, IM (PFIZER-Comirnaty) 07/22/2023 HEPATITIS B VACCINE, RECOMB, 20 MCG/ML, ADULT (HEPLISAV-B) 07/22/2023,06/18/2023 Pneumococcal Conjugate Vacci ne, 20-valent ([id number]) 08/24/2022 Seasonal Influenza Vac., MDV , IM, [...] No 06/11/2023 Does the household have a re gular source of income? (Household - for ages [...] encounter Miscellaneous Notes * Telephone Encounter - Zakiya Sheffield CPhT - 08/31/2024 9:48 AM EST Pt would like most recent x-ray and mri sent over to [facility] in [place], [place]. . Thank you, Zakiya Sheffield CPhT [employer] [facility] 08/31/2024,9:49 AM documented in this encounter Plan of Treatment Upcoming Encounters Date Type Department Care Team (Late st Contact Info) Description 09/22/2024 1:50 PM EST Nutrition Services Nutrition & Weight Management, [address] [place] [address] Janet Astorga RDN [address] [place] [address] 09/28/2024 4:00 PM EST Office Visit Family Practice [facility] [address] [place] [address] Michelle Wright CRNP [address] [place] [address] 09/29/2024 11:00 AM EST Office Visit Orthopaedics Spine Surgery [facility] [address] [place] [phone] Ortiz Jones MD [address] [place] [address] 10/06/2024 10:00 AM EST Office Visit Interventional Pain Center [facility] [address] [place] [phone] Darleen Francis PA-C [address] [place] [address] Scheduled Procedures Name Priority Associated Diagnoses Date/Ti [...] Cancer Screening 04/17/2024 Pap Smear 04/17/2024 04/17/2021, 0709/2017, 09/03/2014, Additional history exists HbA1c 01/29/2025 08/01/2024, 05/0 04/2024, 08/24/2022, Additional history exists GFR 08/01/2025 08/01/2024, 05/0 04/2024, 09/01/2022, Additional history exists Mammogram 08/28/2025 08/28/2024, 020 03/2024, 08/26/2023, Additional history exists Lipid Panel [...] this encounter Medical Devices Implanted Type Area Crepe Box Tender Device Identifier Shelf Expiration Date Model / Serial / Lot Mesh 3dmax 3.1x5.3in t Med - [id number] Implanted:Qty: 1 on 07/18/2018 by Daniel Andreson MD at OR [facility] Right: Groin CR BARD : DAVOL 04/29/2023 [id number] / / [id number] documented as of this encounter Care Teams Learning Strategist Relationship Specialty Start Date End Date Angie Alves DO [address] [place] [address] PCP - General Family Medicine 11/08/23 documented as of this encounter
--- OUTSIDE RECORDS SUMMARY | 2024-09-01 23:53 | External Medical Summary | Summary of Care ---
Author Name Unknown Organization [facility] Address [address] [place] [address] Phone [phone] Care Team Providers Care Photoengraving Apprentice Name Role Phone Angie Alves DO Primary Care Provider [phone] Reason for Referral * Evaluate & Treat - Unlimited Visits (Within 10 days (routine)) - Pending Review Specialty Diagnoses / Procedures Referred By Angely leong Referred To Contact Physical Therapy / Physical Medicine And Rehab Diagnoses Neck pain Radicular pain in left arm Ike Ward MD [address] [place] [address] Phone: tel: fax: Referral ID Status Reason Start Date Expiration Date Visits Requested Visits Authorized [id number] Pending Review Specialty Services Required 08/18/2024 [id number] Question Answer Referral Priority Within 10 days (routine) Where should this appointment be scheduled? [facility] Comments Concern for cervical radiculopathy Moderate to severe ddd from c4 to c8, grade 1 anterolithesis of c4 on c5 * Evaluate & Treat - Unlimited Visits (Within 10 days (routine)) - Pending Review Specialty Diagnoses / Procedures Referred By Angely leong Referred To Contact Neuro/Ortho Surgery - Spine. / Neurological Surgery Diagnoses Neck pain Radicular pain in left arm Ike Ward MD [address] [place] [address] Phone: tel: fax: Referral ID Status Reason Start Date Expiration Date Visits Requested Visits Authorized [id number] Pending Review Specialty Services Required 08/18/2024 [id number] Question Answer Referral Priority Within 10 days (routine) Where should this appointment be scheduled? [facility] spine region: Neck - Cervical Do you have any recent complete loss of bladder or bowel function? No * Precert (Within 10 days (routine)) - Authorized Specialty Diagnoses / Procedures Referred By Angely leong Referred To Contact Radiology Diagnoses Neck pain Radicular pain in left arm Procedures MRI C SPINE WO CONTRAST Ike Ward MD [address] [place] [address] Phone: tel: fax: Referral ID Status Reason Start Date Expiration Date V isits Requested Visits Authorized [id number] Authorized Precert 08/18/2024 02/14/2025 999 999 * Evaluate & Treat - Unlimited Visits (Within 10 days (routine)) - Pending Review Specialty Diagnoses / Procedures Referred By Angely leong Referred To Contact Pain Management / Pain Medicine Diagnoses Neck pain Radicular pain in left arm Ike Ward MD [address] [place] [address] Phone: tel: fax: Referral ID Status Reason Start Date Expiration Date Visits Requested Visits Authorized [id number] Pending Review Specialty Services Required 08/18/2024 999 [id number] Question Answer Referral Priority Within 10 days (routine) Where should this appointment be scheduled? [facility] Reason for referral? Interventional Pain Management - (Injection) What condition is the patient being referred for? Cervical Radiculopathy What is the preferred location to have this test performed? [facility] Comments Patient Name: Megan Amin Date of : 1970 Department Phone Number: : [phone] (if unable to have a MRI) is recommended if any of the following apply: 1. Patient has neck or back pain with radiation to extremities. A previous MRI will be accepted if symptoms unchanged since prior MRI. 2. Spinal surgery since last MRI. If yes, order a MRI with and without contrast. 3. Hx or ongoing cancer treatment. Patient will need spine x-ray (Ap/Lat) for axial neck or back pain if not done previously. Fax No. [facility] [phone] or contact director of front office [phone] Fax No. [facility] [phone] or contact director of front office [phone] Fax No. [facility] [phone] or contact director of front office [phone] Reason for Visit * Reason Comments NEW PATIENT Left shoulder * Evaluate & Treat - Unlimited Visits (Within 10 days (routine)) - Pending Review Specialty Diagnoses / Procedures Referred By Angely leong Referred To Contact Orthopaedic Surgery / Orthopedics Diagnoses Acute pain of left shoulder Karey Montoya CRNP [address] [place] [address] Phone: tel: fax: Referral ID Status Reason Start Date Expiration Date Visits Requested Visits Authorized [id number] Pending Review Specialty Services Required 08/15/[phone] Encounter Details Date Type Department Care Team ([facility] Contact Info) Description 08/18/2024 8:00 AM EST Office Visit Orthopaedics [facility] [address] [place] [phone] Ike Ward MD [address] [place] [address] Neck pain*; Radicular pain in left arm Allergies Active Allergy Reactions Criticality Noted Date Comments Food (See Comments) Hives Medium 08/11/2013 Red beans per pt - Claritza Brand Red Dye #40 (Allura Red) Hives 11/02/2022 [place] patch sized welts-generalized areas documented as of this encounter (statuses as of 08/22/2024) Medications Hydrocortisone 2.5 % External OintmentIndicati ons:Dermatitis [...] Fluocinolone Acetonide Scalp 0.01 % External Oil ([place]-Smoothe/F S) Apply to scalp every other night, [...] as of this encounter (statuses as of 08/22/2024) Active Problems Problem Noted Date Diagnosed Date [...] symptoms persist/worsen. Food insecurity 06/14/2023 Overview: Per [facility] Protocol History of anemia 01/30/2021 Conductive hearing loss of r ight ear with unrestricted hearing of left ear 06/26/2020 Tinnitus of both ears 06/24/2020 Osteoarthritis of spine with radiculopathy, cerv ical region 08/04/2018 Abnormal EKG 02/18/2018 Well woman exam with routine gynecological exam 01/24/2018 HTN, goal below 130/80 01/13/2018 Urticaria 08/23/2013 Overview (08/23/2013): Aug.07,,2013. Esophageal reflux 12/13/2008 Irritable bowel syndrome 12/13/2008 documented as of this encounter (statuses as of 08/22/2024) Resolved Problems Problem Noted Date Diagnosed Date [...] for intubation Copy of letter: RE: MR# [id number] Dear Megan Amin, During your recent health care encounter at [facility], your treatment required breathing management through [...] surgery, anesthesia, or mechanical ventilation at the [facility], we would like you or your healthcare proxy to tell your physicians to check your previous records regarding airway management. If you need similar services at another institution, we would advise you to inform your treating physicians of this problem. If you would like to discuss this further, please do not hesitate to contact us by mail or phone at [phone]. We have included an order form for a medic alert bracelet if you choose to purchase one. Sincerely, Alyce Gomez MD Departments of Anesthesia and Critical Care Medicine [address] [place] [address], [address] [place] [address] Food insecurity 03/15/2018 11/22/2020 Overview: Per [facility] Protocol documented as of this encounter (statuses as of 08/22/2024) Immunizations Name Administration Dates Next Due COVID-19 mRNA, LNP-s, No Pre serve, 2-Dose Series (Pfizer) 09/20/2020,08/30/2020 COVID-19, MRNA-LNP, PF, 30 M CG/0.3 mL, 12 YRS AND ABOVE, IM (PFIZER-Comirnaty) 07/22/2023 HEPATITIS B VACCINE, RECOMB, 20 MCG/ML, ADULT (HEPLISAV-B) 07/22/2023,06/18/2023 Pneumococcal Conjugate Vacci ne, 20-valent (Tunrvnc07) 08/24/2022 Seasonal Influenza Vac., MDV , IM, [...] money to buy more. Often true 06/11/20 23 Within the past 12 months, t he [...] AM EST documented as of this encounter Progress Notes * Ike Ward MD - 08/18/2024 8:00 AM EST Megan Amin [id number] Megan Amin is a 54 year old female who presents for consultation to [facility] for left shoulder injury/pain. Consult requested by Karey GODFREY. Megan Amin is here unaccompanied Note: Stacie Marquez MA was present as a manager transportation throughout the patient's visit. ROS: ROS per HPI otherwise non-contributory History: Level of pain: reviewed and agree with Nursing Notes for HPI elements History - Here for new patient visit regarding acute onset of left shoulder pain and burning that started about 3 days ago . Patient notes the pain begins in her neck and radiates the entire way down her left arm. She is also getting some into her right arm. Remote x-rays reveal known cervical spine DDD Denies bowel or bladder incontinence or saddle anesthesia ROS: ROS per HPI otherwise non-contributory Past Medical History: Diagnosis Date Irritable bowel syndrome Other genital herpes Unsatisfactory cervical Papanicolaou smear 1996 colpo Family History Problem Relation Name Age of Onset No Past Hx Mother Stroke Mother Alcohol and Other Disorders Associated Father smoker Collagen disease Daughter RA, SLE, scleroderma No Past Hx Daughter No Past Hx Daughter Diabetes Grandmother (Paternal) Heart Disorder Grandmother (Maternal) [place] Cancer None no breast, ovarian, uterine ca Breast Cancer No significant family history Social History Socioeconomic History Marital status: Spouse name: Not on file Number of children: Not on file Years of education: Not on file Highest education level: Not on file Occupational History Not on file Tobacco Use Smoking status: Never Smokeless tobacco: Never Tobacco comments: no passive smoke Vaping Use Vaping status: Never Used Substance and Sexual Activity Alcohol use: No Drug use: No Sexual activity: Not Currently Partners: Male control/protection: Surgical Other Topics Concern Service No Blood Transfusions No Caffeine Concern No Occupational Exposure No Hobby Hazards No Sleep Concern No Stress Concern No Weight Concern No Special Diet No Back Care No Exercise Yes Comment: loves to work out Bike Helmet Not Asked Seat Belt Not Asked Self-Exams Yes Comment: but not since surgery Social History Narrative 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 (Adult - for ages 18 years and over): Yes Does your family have trouble paying for medicine? (Household - for ages 0-17 years): Not on file Food Insecurity: Food Insecurity Present (06/11/2023) Food Insecurity Do you need food for this week? (Adult - for ages 18 years and over): Yes Are you able to get enough food for your family? (Household - for ages 0-17 years): Not on file Does your family need food this week? (Household - for ages 0-17 years): Not on file Do you always have enough food for your family? (Household - for ages 0-17 years): Not on file Transportation Needs: No Transportation Needs (06/11/2023) Transportation Needs Do you have trouble getting a ride to medical visits or work? (Adult - for ages 18 years and over):Never True Does your family have a hard time getting a ride to doctors visits? (Household - for ages 0-17 years): Not on file Has lack of transportation kept you from medical appointments, meetings, work, or from getting things needed for daily living? Check all that apply. (Adult - for ages 18 years and over): Not on file Do you (or your family) have trouble finding or paying for a ride (transportation)? (Household - for ages 0-17 years): Not on file Social Connections: Socially Integrated (06/11/2023) Social Connections How often do you feel lonely or isolated from those around you? (Adult - for ages 18 years and over): Rarely Housing Stability: High Risk (06/11/2023) Housing Stability Do you currently live in a residential or have no steady place to sleep at night? (Adult - for ages 18 years and over): No Do you think you are at risk of becoming homeless? (Adult - for ages 18 years and over): Yes Does your family worry about paying for your home or becoming homeless? (Household - for ages 0-17 years): Not on file Are you homeless or worried that you might be in the future? (Adult - for ages 18 years and over): Not on file Are you (or your family) homeless or worried that you might be in the future? (Household - for ages0-17 years): Not on file Physical Exam Constitutional: Generally well-nourished and in no acute distress Psychiatric: Mood and Affect normal Eyes: EOMI Respiratory: Normal respiratory effort with regular rate and rhythm Cardiovascular: No edema in the affected extremity (s) Shoulder Exam Inspection: Unremarkable Palpation: Tender palpate with light touch in the upper extremity ROM: Forward Flexion (normal 180): L - 180, R - 180 Abduction (normal 180): L - 180, R - 180 Internal Rotation: T12 bilateral Has full active range of motion with some pain at extremes Radiology: 08/18/2024: Four view x-ray of the cervical spine Significant degenerative changes at multiple levels, greatest from C4 through C8. grade 1 anterolisthesis of C4 on C5 08/16/24: 4 view xr of the L shoulder FINDINGS / IMPRESSION: No acute displaced fracture or dislocation. No significant degenerative change 06/04/21: AP, lateral, flexion and extension views of the cervical spine were obtained FINDINGS No visible fracture. Minimal retrolisthesis C5 on C6 and C6 on C7. There is moderate degenerative disc disease at C5-C6 and C6-C7 with disc space narrowing, subchondral sclerosis and marginal osteophyte formation. No dynamic instability is appreciated. Facet and uncovertebral joint arthropathy noted. No gross soft tissue abnormality. IMPRESSION IMPRESSION Moderate degenerative disc disease at C5-C6 and C6-C7 Assessment and Plan: 1) neck and radicular left arm pain Strongly suspect cervical spine pathology Discussed patient that we do not typically evaluate and treat cervical spine pathology within Sports Medicine High dose prednisone taper Discussed with patient that this may cause her blood sugar to increase. If it does she is to contact the provider that manages her diabetes MRI Physical therapy referral Pain management referral Spine surgery referral To contact PCP about further pain management if steroid does not control her pain while she awaits consultation with the pain managent Ike Ward MD Primary Care Sports Medicine Orthopaedics [facility] [address] [facility] [place] [phone] documented in this encounter Nursing Notes * Stacie Marquez MED ASSIST - 08/18/2024 8:27 AM EST Here for new patient visit regarding acute onset of left shoulder pain and burning that started about 3 days ago. documented in this encounter Plan of Treatment Upcoming Encounters Date Type Department Care Team (Late st Contact Info) Description 08/28/2024 10:00 AM EST Imaging Radiology [facility] 1st Floor, [place] [address] [place] [phone] 09/22/2024 1:50 PM EST Nutrition Services Nutrition & Weight Management, [facility] [address] [place] [address] Janet Astorga RDN [address] [place] [address] 09/29/2024 11:00 AM EST Office Visit Orthopaedics Spine Surgery [facility] [address] [place] [phone] Ortiz Jones MD [address] [place] [address] 10/06/2024 10:00 AM EST Office Visit Interventional Pain Center [facility] [address] [place] [phone] Darleen Francis PA-C [address] [place] [address] Scheduled Procedures Name Priority Associated Diagnoses Date/Ti me COLONOSCOPY FLEXIBLE PROXIMAL DIAGNOSTIC Recall Screen for colon cancer Scheduled Referrals Name Type Priority Associated Diagnoses Orde r Schedule PAIN MEDICINE REFERRAL OP Referral Within 10 days (routine) Neck pain Radicular pain in left arm Ordered: 08/18/2024 SPINE SURGERY REFERRAL OP Referral Within 10 days (routine) Neck pain Radicular pain in left arm Ordered: 08/18/2024 PHYSICAL THERAPY REFERRAL OP Referral Within 10 days (routine) Neck pain Radicular pain in left arm Ordered: 08/18/2024 Health Maintenance Due Date Last Done Comments [...] this encounter Medical Devices Implanted Type Area Time Study Technologist Device Identifier Shelf Expiration Date Model / Serial / Lot Mesh 3dmax 3.1x5.3in Rht Med - [id number] Implanted:Qty: 1 on 07/18/2018 by Daniel Anderson MD at OR [facility] Right: Groin CR BARD : DAVOL 04/29/2023 [id number] / / [id number] documented as of this encounter Procedures Procedure Name Priority Date/Time Associated Diagnosis Comments XR C SPINE 4-5 VIEWS Routine 08/18/2024 9:15 AM EST Neck pain Radicular pain in left arm documented in this encounter Results * MRI C SPINE WO CONTRAST (08/21/2024 5:30 PM EST) Anatomical Region Laterality Modality Vertebra, Spine Magnetic Resonan ce 08/22/2024 10:2 8 AM EST Impressions 08/22/2024 10:25 AM EST IMPRESSION Multilevel degenerative changes of the cervical spine, most advanced at C5-C6 and C6-C7, as detailed. Spinal canal narrowing is most severe at C6-C7, and of a slightly lesser degree at C5-C6. 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 Varying degrees of bilateral neuroforaminal narrowing including severe narrowing at C5-C6 and C6-C7. High-grade left neuroforaminal narrowing at C7-T1 has slightly increased, potentially contributing to symptoms. Narrative 08/22/2024 10:25 AM EST EXAM MRI C SPINE WO CONTRAST-08/21/2024 5:30 pm HISTORY 54 y/o F, concern for cervical radiculopathy; Neck pain; Trauma; No cervical CT result available; None of the following: Spondyloarthropathy, cervical x-ray with negative result, questionable finding, or inadequate coverage COMPARISON MR cervical spine 10/04/2020. TECHNIQUE Multiplanar, multisequence magnetic resonance images of the cervical spine were obtained without intravenous contrast. FINDINGS No evidence of an acute fracture or malalignment. Reversal of cervical lordosis with kyphosis centered at C5-C6, as before. Increased mild anterolisthesis of C4 on C5 and similar mild retrolisthesis of C5 on C6 and C6 on C7. Mild degenerative vertebral body height loss C5 and C6. Degenerative intervertebral disc height loss most evident at C5-C6 and C6-C7. Endplate associated degenerative changes in the bone marrow, predominantly fatty marrow changes at sites of greatest disc height loss. Degenerative changes by level: C2-C3: Central disc protrusion and uncovertebral/facet arthropathy contributes to mild spinal canal narrowing and mild bilateral neuroforaminal narrowing, unchanged. C3-C4: Disc bulge with central protrusion superimposed and uncovertebral/facet arthropathy contributes to mild spinal canal narrowing and moderate to marked bilateral neuroforaminal narrowing, unchanged. C4-C5: Spondylolisthesis, endplate osteophytes, disc bulge with a small central protrusion superimposed, and uncovertebral/facet arthropathy contributes to mild spinal canal narrowing and moderate bilateral neuroforaminal narrowing, unchanged. C5-C6: Spondylolisthesis, endplate osteophytes, disc bulge with central protrusion superimposed, ligamentous thickening, and uncovertebral/facet arthropathy contributes to moderate to marked spinal canal narrowing and marked bilateral neuroforaminal narrowing, unchanged. C6-C7: Spondylolisthesis, endplate osteophytes, disc bulge with central protrusion superimposed, ligamentous thickening, and uncovertebral/facet arthropathy contributes to marked spinal canal narrowing and marked bilateral neuroforaminal narrowing, not significantly changed. C7-T1: Small disc bulge and facet arthropathy contributes to similar moderate right and slightly increased moderate to marked left neuroforaminal narrowing. No significant spinal canal narrowing. T1-T2: Left central disc protrusion is slightly more pronounced, indenting the thecal sac without significant spinal canal narrowing. Similar miic-sa-ohrdokdy bilateral neuroforaminal narrowing. The cervicomedullary junction is in a normal position. Flattening of the cervical spinal cord at the C5-C6 and C6-C7 levels. Patchy T2 signal hyperintensity of the cord most pronounced at C6-C7, slightly more conspicuous than on the prior exam and compatible with chronic myelomalacia. Prevertebral and paraspinal soft tissues are unremarkable. Similar prominence of several cervical lymph nodes, nonspecific and may be reactive in etiology. Procedure Note Ben Khoury MD - 08/22/2024 EXAM MRI C SPINE WO CONTRAST-08/21/2024 5:30 pm HISTORY 54 y/o F, concern for cervical radiculopathy; Neck pain; Trauma; Nocervical CT result available; None of the following: Spondyloarthropathy,cervical x-ray with negative result, questionable finding, or inadequatecoverage COMPARISON MR cervical spine 10/04/2020. TECHNIQUE Multiplanar, multisequence magnetic resonance images of the cervical spinewere obtained without intravenous contrast. FINDINGS No evidence of an acute fracture or malalignment. Reversal of cervicallordosis with kyphosis centered at C5-C6, as before. Increased mildanterolisthesis of C4 on C5 and similar mild retrolisthesis of C5 on C6and C6 on C7. Mild degenerative vertebral body height loss C5 and C6. Degenerativeintervertebral disc height loss most evident at C5-C6 and C6-C7. Endplateassociated degenerative changes in the bone marrow, predominantly fattymarrow changes at sites of greatest disc height loss. Degenerative changes by level: C2-C3: Central disc protrusion and uncovertebral/facet arthropathycontributes to mild spinal canal narrowing and mild bilateralneuroforaminal narrowing, unchanged. C3-C4: Disc bulge with central protrusion superimposed anduncovertebral/facet arthropathy contributes to mild spinal canal narrowingand moderate to marked bilateral neuroforaminal narrowing, unchanged. C4-C5: Spondylolisthesis, endplate osteophytes, disc bulge with a smallcentral protrusion superimposed, and uncovertebral/facet arthropathycontributes to mild spinal canal narrowing and moderate bilateralneuroforaminal narrowing, unchanged. C5-C6: Spondylolisthesis, endplate osteophytes, disc bulge with centralprotrusion superimposed, ligamentous thickening, and uncovertebral/facetarthropathy contributes to moderate to marked spinal canal narrowing andmarked bilateral neuroforaminal narrowing, unchanged. C6-C7: Spondylolisthesis, endplate osteophytes, disc bulge with centralprotrusion superimposed, ligamentous thickening, and uncovertebral/facetarthropathy contributes to marked spinal canal narrowing and markedbilateral neuroforaminal narrowing, not significantly changed. C7-T1: Small disc bulge and facet arthropathy contributes to similarmoderate right and slightly increased moderate to marked leftneuroforaminal narrowing. No significant spinal canal narrowing. T1-T2: Left central disc protrusion is slightly more pronounced, indentingthe thecal sac without significant spinal canal narrowing. Nedwgjasryx-gs-wcgqzqou bilateral neuroforaminal narrowing. The cervicomedullary junction is in a normal position. Flattening of thecervical spinal cord at the C5-C6 and C6-C7 levels. Patchy T2 signalhyperintensity of the cord most pronounced at C6-C7, slightly moreconspicuous than on the prior exam and compatible with chronicmyelomalacia. Prevertebral and paraspinal soft tissues are unremarkable. Similarprominence of several cervical lymph nodes, nonspecific and may bereactive in etiology. IMPRESSION IMPRESSION Multilevel degenerative changes of the cervical spine, most advanced atC5-C6 and C6-C7, as detailed. Spinal canal narrowing is most severe atC6-C7, and of a slightly lesser degree at C5-C6. Flattening of thecervical cord and chronic compressive myelomalacia, more conspicuous thanon the prior exam. Varying degrees of bilateral neuroforaminal narrowingincluding severe narrowing at C5-C6 and C6-C7. High- grade leftneuroforaminal narrowing at C7-T1 has slightly increased, potentiallycontributing to symptoms. us Ike Ward MD RAD MRI-MRA Fin al Result * XR C SPINE 4-5 VIEWS (08/18/2024 9:15 AM EST) Anatomical Region Laterality Modality Vertebra, Spine, Cspine Digital Radiography 08/18/2024 10:2 2 AM EST Impressions 08/18/2024 10:20 AM EST IMPRESSION Degenerative changes as discussed. Narrative 08/18/2024 10:20 AM EST EXAM XR C SPINE 4-5 VIEWS-08/18/2024 9:15 am HISTORY concern for cervical radiculopathy COMPARISON XR C SPINE 4-5 VIEWS, ACC: [id number], dated 2021-06-04 11:36:33; MRI C SPINE WO CONTRAST, ACC: [id number], dated 2020-10-04 07:39:50; MRI C SPINE WO CONTRAST, ACC: [id number], dated 2018-06-04 14:50:35; CERVICAL SPINE 4-5 VIEWS, ACC: [id number], dated 2009-10-31 15:14:18 TECHNIQUE AP lateral bilateral oblique FINDINGS As compared to 06/04/2021 cervical vertebral body stature appears stable. There is again a loss of vertebral body height at the C5 and C6 vertebral body levels. There is no demonstrable acute fracture. Visualized osseous cervical pedicles appear intact. There is multilevel degenerative change. This consists of osteophyte formation and intervertebral disc space narrowing. This is most marked at C4-C5, C5-C6 and C6-C7. Bilaterally there is mild right osseous neural foraminal narrowing at C5-C6 and moderate to significant at C6-C7. There is a mild levoconvex cervical curvature. The osseous alignment also demonstrates a loss and reversal of expected cervical lordosis. This is nonspecific but could reflect positioning, muscle spasm, ligamentous etiology etc.. Spinal laminal line maintained. On images presented C1-C2 relationships appear maintained. No prevertebral soft tissue swelling identified. Procedure Note Jose Antunez MD - 08/18/2024 EXAM XR C SPINE 4-5 VIEWS-08/18/2024 9:15 am HISTORY concern for cervical radiculopathy COMPARISON XR C SPINE 4-5 VIEWS, ACC: [id number], dated 2021-06-04 11:36:33; MRI C SPINE WO CONTRAST, ACC: [id number], dated 2020-10-04 07:39:50; MRI C SPINE WO CONTRAST, ACC: [id number], dated 2018-06-04 14:50:35; CERVICAL SPINE 4-5 VIEWS, ACC: [id number], dated 2009-10-31 15:14:18 TECHNIQUE AP lateral bilateral oblique FINDINGS As compared to 06/04/2021 cervical vertebral body stature appears stable.There is again a loss of vertebral body height at the C5 and C6 vertebralbody levels. There is no demonstrable acute fracture. Visualized osseouscervical pedicles appear intact. There is multilevel degenerative change. This consists of osteophyteformation and intervertebral disc space narrowing. This is most marked atC4-C5, C5-C6 and C6- C7. Bilaterally there is mild right osseous neuralforaminal narrowing at C5-C6 and moderate to significant at C6-C7. There is a mild levoconvex cervical curvature. The osseous alignment alsodemonstrates a loss and reversal of expected cervical lordosis. This isnonspecific but could reflect positioning, muscle spasm, ligamentousetiology etc.. Spinal laminal line maintained. On images presented C1-C2 relationships appear maintained. No prevertebral soft tissue swelling identified. IMPRESSION IMPRESSION Degenerative changes as discussed. us Ike Ward MD RADIOLOGY ([facility]) Final Result documented in this encounter Visit Diagnoses Diagnosis Viral upper respiratory tract infection- Primary Acute upper respiratory infections of unspecified site Upper respiratory tract infection, unspecified type Neck pain- Primary Cervicalgia Radicular pain in left arm Neuralgia, neuritis, and radiculitis, unspecified Neck pain Cervicalgia Radicular pain in left arm Neuralgia, neuritis, and radiculitis, unspecified documented in this encounter Care Teams Photoengraving Apprentice Relationship Specialty Start Date End Date Angie Alves DO [address] [facility] [place] [address] PCP - General Family Medicine 11/08/23 documented as of this encounter
--- OUTSIDE RECORDS SUMMARY | 2024-09-01 23:53 | External Medical Summary | Summary of Care ---
Author Name Unknown Organization [facility] Address [address] [place] [address] Phone [phone] Care Team Providers Care Superintendent Schools Name Role Phone Angie Alves DO Primary Care Provider [phone] Reason for Visit * Reason Onset Date Comments Advice 08/31/2024 Encounter Details Date Type Department Care Team (Late st Contact Info) Description 08/31/2024 Telephone Family Practice [facility] [address] [place] [address] Angie Alves DO [address] [place] [address] Advice Allergies Active Allergy Reactions Criticality Noted Date Comments Food (See Comments) Hives Medium 08/11/2013 Red beans per pt - Claritza Brand Red Dye #40 (Allura Red) Hives 11/02/2022 [place] patch sized welts-generalized areas documented as of this encounter (statuses as of 08/31/2024) Medications Hydrocortisone 2.5 % External OintmentIndicati ons:Dermatitis [...] Fluocinolone Acetonide Scalp 0.01 % External Oil ([place]-Smoothe/F S) Apply to scalp every other night, [...] as of this encounter (statuses as of 08/31/2024) Active Problems Problem Noted Date Diagnosed Date [...] as of this encounter (statuses as of 08/31/2024) Resolved Problems Problem Noted Date Diagnosed Date [...] for intubation Copy of letter: RE: MR# [id number] Dear Megan Amin, During your recent health care encounter at [facility], your treatment required breathing management through [...] surgery, anesthesia, or mechanical ventilation at the [facility], we would like you or your healthcare proxy to tell your physicians to check your previous records regarding airway management. If you need similar services at another institution, we would advise you to inform your treating physicians of this problem. If you would like to discuss this further, please do not hesitate to contact us by mail or phone at [phone]. We have included an order form for a medic alert bracelet if you choose to purchase one. Sincerely, Alyce Gomze MD Departments of Anesthesia and Critical Care Medicine [address] [place] [address], [address] [place] [address] Food insecurity 03/15/2018 11/22/2020 Overview: Per [facility] Protocol documented as of this encounter (statuses as of 08/31/2024) Immunizations Name Administration Dates Next Due COVID-19 mRNA, LNP-s, No Pre serve, 2-Dose Series (MacuLogix) 09/20/2020,08/30/2020 COVID-19, MRNA-LNP, PF, 30 M CG/0.3 mL, 12 YRS AND ABOVE, IM (PFIZER-Comirnaty) 07/22/2023 HEPATITIS B VACCINE, RECOMB, 20 MCG/ML, ADULT (HEPLISAV-B) 07/22/2023,06/18/2023 Pneumococcal Conjugate Vacci ne, 20-valent ([id number]) 08/24/2022 Seasonal Influenza Vac., MDV , IM, [...] recent x-ray and mri sent over to [facility] in [place], [place]. . Thank you, Zakiya Sheffield CPhT Mirror Fabrication Supervisor II [facility]) 08/31/2024,9:49 AM documented in this encounter Plan of Treatment Upcoming Encounters Date Type Department Care Team (Late st Contact Info) Description 09/22/2024 1:50 PM EST Nutrition Services Nutrition & Weight Management, [address] [place] [address] Janet Astorga RDN [address] [place] [address] 09/28/2024 4:00 PM EST Office Visit Family Practice [facility] [address] [place] [address] Michelle Wright CRNP [address] [place] [address] 09/29/2024 11:00 AM EST Office Visit Orthopaedics Spine Surgery [facility] [address] [place] [phone] Ortiz Jones MD [address] [place] [address] 10/06/2024 10:00 AM EST Office Visit Interventional Pain Center [facility] [address] [place] [phone] Darleen Francis PA-C [address] [place] [address] Scheduled Procedures Name Priority Associated Diagnoses Date/Ti [...] this encounter Medical Devices Implanted Type Area Finish Remover Device Identifier Shelf Expiration Date Model / Serial / Lot Mesh 3dmax 3.1x5.3in t Med - [id number] Implanted:Qty: 1 on 07/18/2018 by Daniel Anderson MD at OR [facility] Right: Groin CR BARD : DAVOL 04/29/2023 [id number] / / [id number] documented as of this encounter Care Teams Superintendent Schools Relationship Specialty Start Date End Date Angie Alves DO [address] [place] [address] PCP - General Family Medicine 11/08/23 documented as of this encounter
--- OUTSIDE RECORDS SUMMARY | 2024-09-01 23:53 | External Medical Summary | Summary of Care ---
Author Name Unknown Organization [facility] Address [address] [place] [address] Phone [phone] Care Team Providers Care Farebox Repairer Name Role Phone Angie Calvillo DO Primary Care Provider [phone] Reason for Visit * Reason Onset Date Comments Med Request 08/17/2024 Encounter Details Date Type Department Care Team (Late st Contact Info) Description 08/17/2024 Telephone Family Practice [facility] [address] [place] [address] Angie Calvillo DO [address] [place] [address] Med Request Allergies Active Allergy Reactions Criticality Noted Date Comments Food (See Comments) Hives Medium 08/11/2013 Red beans per pt - Claritza Brand Red Dye #40 (Allura Red) Hives 11/02/2022 [place] patch sized welts-generalized areas documented as of this encounter (statuses as of 08/17/2024) Medications Hydrocortisone 2.5 % External OintmentIndicati ons:Dermatitis [...] Fluocinolone Acetonide Scalp 0.01 % External Oil ([place]-Smoothe/F S) Apply to scalp every other night, [...] for Muscle spasms. 10 Tablet 5 Active documented as of this encounter (statuses as of 08/17/2024) Active Problems Problem Noted Date Diagnosed Date [...] as of this encounter (statuses as of 08/17/2024) Resolved Problems Problem Noted Date Diagnosed Date [...] for intubation Copy of letter: RE: MR# [id number] Dear Megan Amin, During your recent health care encounter at [facility], your treatment required breathing management through the [...] surgery, anesthesia, or mechanical ventilation at the [facility], we would like you or your healthcare proxy to tell your physicians to check your previous records regarding airway management. If you need similar services at another institution, we would advise you to inform your treating physicians of this problem. If you would like to discuss this further, please do not hesitate to contact us by mail or phone at [phone]. We have included an order form for a medic alert bracelet if you choose to purchase one. Sincerely, Alyce Gomez MD Departments of Anesthesia and Critical Care Medicine [address] [place] [address], [address] [place] [address] Food insecurity 03/15/2018 11/22/2020 Overview: Per [facility] Protocol documented as of this encounter (statuses as of 08/17/2024) Immunizations Name Administration Dates Next Due COVID-19 mRNA, LNP-s, No Pre serve, 2-Dose Series (Sand 9) 09/20/2020,08/30/2020 COVID-19, MRNA-LNP, PF, 30 M CG/0.3 mL, 12 YRS AND ABOVE, IM (PFIZER-Comirnaty) 07/22/2023 HEPATITIS B VACCINE, RECOMB, 20 MCG/ML, ADULT (HEPLISAV-B) 07/22/2023,06/18/2023 Pneumococcal Conjugate Vacci ne, 20-valent ([id number]) 08/24/2022 Seasonal Influenza Vac., MDV , IM, [...] 06/11/2023 Does the household have a re lar source of income? (Household - for ages [...] encounter Miscellaneous Notes * Telephone Encounter - Latesha Cervantes LPN - 08/17/2024 6:55 PM EST Called ans spoke with pt. Pt had already picked up medication and verified that she has an appointment with ortho tomorrow morning. * Telephone Encounter - Anoop Lackey MD - 08/17/2024 12:30 PM EST I am covering for Dr Calvillo who has been out since April. Complaint reviewed. Messages reviewed. CC visit note reviewed. Short term muscle relaxer sent to her pharmacy - [facility]. She should not operate machinery/drive while she's taking the medication. She should continue with the plan to see orthopedics (referral was made at her appt). Please let her know thanks * Telephone Encounter - Jason Vasquez PHARM Tech - 08/17/2024 10:13 AM EST Pt called in stating that medication from urgent care was not effective, and pt is requesting an alternative, possibly a muscle relaxer. Please advise. Thank you, Jason Vasquez Tank Furnace Operator [facility] ([facility]) [address] [place] [address], [address] [place] [address] [phone] 08/17/2024, 10:14 AM documented in this encounter Plan of Treatment Upcoming Encounters Date Type Department Care Team (Late st Contact Info) Description 08/18/2024 8:00 AM EST Office Visit Orthopaedics [facility] [address] [place] [phone] Ike Ward MD [address] [place] [address] 08/28/2024 10:00 AM EST Imaging Radiology [facility] [place] [facility] [address] [place] [phone] 09/22/2024 1:50 PM EST Nutrition Services Nutrition & Weight Management, [facility] [address] [place] [address] Janet Astorga RDN [address] [place] [address] Scheduled Procedures Name Priority Associated Diagnoses Date/Ti [...] this encounter Medical Devices Implanted Type Area Dip Unit Operator Device Identifier Shelf Expiration Date Model / Serial / Lot Mesh 3dmax 3.1x5.3in t Med - [id number] Implanted:Qty: 1 on 07/18/2018 by Daniel Anderson MD at OR [facility] Right: Groin CR BARD : MICKY 04/29/2023 [id number] / / [id number] documented as of this encounter Care Teams Farebox Repairer Relationship Specialty Start Date End Date Angie Calvillo DO [address] [place] [address] PCP - General Family Medicine 11/08/23 documented as of this encounter
--- OUTSIDE RECORDS SUMMARY | 2024-09-01 23:53 | External Medical Summary | Summary of Care ---
Author Name Unknown Organization [facility] Address [address] [place] [address] Phone [phone] Care Team Providers Care Triage Rn Name Role Phone Angie Alves DO Primary Care Provider [phone] Reason for Visit * Reason Onset Date Comments Advice 08/30/2024 Back,shoulder pa in Medication Refill 08/30/2024 Med Request 08/30/2024 Encounter Details Date Type Department Care Team (Late st Contact Info) Description 08/30/2024 Telephone Family Practice [facility] [address] [place] [address] Angie Alves DO [address] [facility] [address] Advice (Back,shoulder pain); Medication Re... Allergies Active Allergy Reactions Criticality Noted Date Comments Food (See Comments) Hives Medium 08/11/2013 Red beans per pt - Claritza Brand Red Dye #40 (Allura Red) Hives 11/02/2022 [place] patch sized welts-generalized areas documented as of [...] Fluocinolone Acetonide Scalp 0.01 % External Oil ([place]-Smoothe/F S) Apply to scalp every other night, [...] for intubation Copy of letter: RE: MR# [id number] Dear Megan Amin, During your recent health care encounter at [facility], your treatment required breathing management [...] surgery, anesthesia, or mechanical ventilation at the [facility], we would like you or your healthcare proxy to tell your physicians to check your previous records regarding airway management. If you need similar services at another institution, we would advise you to inform your treating physicians of this problem. If you would like to discuss this further, please do not hesitate to contact us by mail or phone at [phone]. We have included an order form for a medic alert bracelet if you choose to purchase one. Sincerely, Alyce Gomez MD Departments of Anesthesia and Critical Care Medicine [address] [place] [address], [address] [place] [address] Food insecurity 03/15/2018 11/22/2020 Overview: Per [facility] Protocol documented as of this encounter (statuses as of 09/01/2024) Immunizations Name Administration Dates Next Due COVID-19 mRNA, LNP-s, No Pre serve, 2-Dose Series (NoRedInk) 09/20/2020,08/30/2020 COVID-19, MRNA-LNP, PF, 30 M CG/0.3 mL, 12 YRS AND ABOVE, IM (PFIZER-Comirnaty) 07/22/2023 HEPATITIS B VACCINE, RECOMB, 20 MCG/ML, ADULT (HEPLISAV-B) 07/22/2023,06/18/2023 Pneumococcal Conjugate Vacci ne, 20-valent (Hktoyvi42) 08/24/2022 Seasonal Influenza Vac., MDV , IM, [...] No 06/11/2023 Does the household have a [facility] source of income? (Household - for ages [...] encounter Miscellaneous Notes * Telephone Encounter - Carolina Moseley OSA - 09/01/2024 9:59 AM EST Relayed message below to patient from Dr. Lackey That was just documented in chart Patient states in pain wants different medications prescribed for her shoulder Transferred to Orthopaedics line * Telephone Encounter - Anoop Lackey MD - 09/01/2024 9:34 AM EST Per previous message from Micki she will need an appt to be seen - she has not been seen in this clinic in 9 months nor has she been seen for this issue - which is not even mentioned in this thread but upon reviewing the chart seems to be shoulder pain based on her urgent care note from 08/15. In brief - offer an appt. If its for the shoulder, she can use walk in ortho appt. If she cannot wait for an appt here, she can return to . Thanks. * Telephone Encounter - Brianna Zuluaga OSA - 09/01/2024 9:23 AM EST Megan called in and she needs something for her pain. She can not even function through the day and is unable to do the work and she is upset she still hasn't received any call back. Please call her at [phone] to discuss medications with her. She is going to try and set up a tele visit * Telephone Encounter - Zakiya Sheffield CPhT - 08/31/2024 9:45 AM EST Pt is requesting something strong, and pt does not want to be prescribed to Prednisone due to complications of not being able to hold urine, constipation when taking the medication. Please review. Thank you, Zakiya Sheffield CPhT In Home Nanny II [facility]) 08/31/2024,9:46 AM * Telephone Encounter - Micki Arce CRNP - 08/30/2024 1:20 PM EST Inboxologist Note: Inboxologist Covering Provider Ok to use voltaren Recommend [facility] follow up appt any provider All replies or additional communication must be routed to the PCP * Telephone Encounter - Janice Crowe CCMA - 08/30/2024 1:07 PM EST Please read message below and advise. Thank You * Telephone Encounter - Shahida Velasco OSA - 08/30/2024 11:55 AM EST 1. When were you seen for this problem? 08/15/24 2. What provider did you see for this problem? Karey Montoya at [facility] 3. What medications are you presently taking? Meloxicam, Prednisone, and Tizanidine. Pt has completed the Prednisone 4. What is it that is no better? Please refer to Call Details. Pt will also need a refill on valACYclovir HCl 500 MG Oral Tablet (Valtrex) She is asking in addition about a cream Voltaren for pain, she has never heard of it before but heard it is helpful for pain. Please advise documented in this encounter Plan of Treatment Upcoming Encounters Date Type Department Care Team (Late st Contact Info) Description 09/22/2024 1:50 PM EST Nutrition Services Nutrition & Weight Management, [facility] [address] [place] [address] Janet Astorga RDN [address] [place] [address] 09/28/2024 4:00 PM EST Office Visit Family Practice [facility] [address] [place] [address] Michelle Wright CRNP [address] [place] [address] 09/29/2024 11:00 AM EST Office Visit Orthopaedics Spine Surgery [facility] [address] [place] [phone] Ortiz Jones MD [address] [place] [address] 10/06/2024 10:00 AM EST Office Visit Interventional Pain Center [facility] [address] [place] [phone] Darleen Francis PA-C [address] [place] [address] Scheduled Procedures Name Priority Associated Diagnoses Date/Ti [...] this encounter Medical Devices Implanted Type Area Synchronizer Device Identifier Shelf Expiration Date Model / Serial / Lot Mesh 3dmax 3.1x5.3in t Med - [id number] Implanted:Qty: 1 on 07/18/2018 by Daniel Anderson MD at OR [facility] Right: Groin CR BARD : DAVOL 04/29/2023 [id number] / / [id number] documented as of this encounter Care Teams Triage Rn Relationship Specialty Start Date End Date Angie Alves DO [address] [place] [address] PCP - General Family Medicine 11/08/23 documented as of this encounter
--- OUTSIDE RECORDS SUMMARY | 2024-09-01 23:53 | External Medical Summary | Summary of Care ---
Author Name Unknown Organization [facility] Address [address] [place] [address] Phone [phone] Care Team Providers Care Agriculture Technician Name Role Phone Angie Alves Primary Care Provider [phone] Reason for Visit * Reason Onset Date Comments Referral 09/01/2024 Fax number corre ction Encounter Details Date Type Department Care Team (Late st Contact Info) Description 09/01/2024 Telephone Orthopaedics [facility] [address] [place] [address] Ike Ward MD [address] [place] [address] Referral (Fax number correction ) Allergies Active Allergy Reactions Criticality Noted Date Comments Food (See Comments) Hives Medium 08/11/2013 Red beans per pt - Claritza Brand Red Dye #40 (Allura Red) Hives 11/02/2022 [place] patch sized welts-generalized areas documented as [...] Fluocinolone Acetonide Scalp 0.01 % External Oil ([place]-Smoothe/F S) Apply to scalp every other night, [...] for intubation Copy of letter: RE: MR# [id number] Dear Megan Amin, During your recent health care encounter at [facility], your treatment required breathing management [...] surgery, anesthesia, or mechanical ventilation at the [facility], we would like you or your healthcare proxy to tell your physicians to check your previous records regarding airway management. If you need similar services at another institution, we would advise you to inform your treating physicians of this problem. If you would like to discuss this further, please do not hesitate to contact us by mail or phone at [phone]. We have included an order form for a medic alert bracelet if you choose to purchase one. Sincerely, Alyce Gomez MD Departments of Anesthesia and Critical Care Medicine [address] [place] [address], [address] [place] [address] Food insecurity 03/15/2018 11/22/2020 Overview: Per [facility] Protocol documented as of this encounter (statuses as of 09/01/2024) Immunizations Name Administration Dates Next Due COVID-19 mRNA, LNP-s, No Pre serve, 2-Dose Series ([employer]) 09/20/2020,08/30/2020 COVID-19, MRNA-LNP, PF, 30 M CG/0.3 mL, 12 YRS AND ABOVE, IM (PFIZER-Comirnaty) 07/22/2023 HEPATITIS B VACCINE, RECOMB, 20 MCG/ML, ADULT (HEPLISAV-B) 07/22/2023,06/18/2023 Pneumococcal Conjugate Vacci ne, 20-valent (Rneclnh00) 08/24/2022 Seasonal Influenza Vac., MDV , IM, [...] encounter Miscellaneous Notes * Telephone Encounter - Jocy Davey OSA - 09/01/2024 10:10 AM EST Pt called back and she has used everything she could use for the pain and the pain has not stopped she would like to know if there is something stronger for the pain and inflammation and if someone could call her back * Telephone Encounter - Alanna Antunez OSA - 09/01/2024 9:56 AM EST Sent. * Telephone Encounter - Carolina Moseley OSA - 09/01/2024 9:51 AM EST Correct fax number [phone] pt calling back with corrected fax number * Telephone Encounter - Brianna Zuluaga OSA - 09/01/2024 9:32 AM EST Megan called in requesting PT referral be sent to [facility] to [facility] in [facility]. Fax . She would also like her orthopedic spine surgery referral sent to Dr Robert Benítez [facility] documented in this encounter Plan of Treatment Upcoming Encounters Date Type Department Care Team (Late st Contact Info) Description 09/22/2024 1:50 PM EST Nutrition Services Nutrition & Weight Management, [facility] [address] [address] Janet Astorga RDN [address] [place] [address] 09/28/2024 4:00 PM EST Office Visit Family Practice [facility] [address] [address] Michelle Wright CRNP [address] [place] [address] 09/29/2024 11:00 AM EST Office Visit Orthopaedics Spine Surgery [facility] [address] [phone] Ortiz Jones MD [address] [place] [address] 10/06/2024 10:00 AM EST Office Visit Interventional Pain Center [facility] [address] [place] [phone] Darleen Francis PA-C [address] [place] [address] Scheduled Procedures Name Priority Associated Diagnoses Date/Ti [...] 09/01/2022, Additional history exists Mammogram 08/28/2025 08/28/2024, 0203/2024, 08/26/2023, Additional history exists Lipid Panel 08/01/2029 08/01/2024, 05/0 04/2024, 04/17/2021, Additional history exists DTap/Tdap Vaccines (3 - Td or Tdap) 02/13/2030 02/14/2020, 01/28/2010 Colonoscopy 11/04/2032 11/04/2022, 11/04/2022 Colorectal Cancer Screening 11/04/2032 Pneumococcal Vaccine: 50+ Years Completed 08/24/2022 Zoster Vaccines Completed 01/05/2023, 08/24/2022 Hepatitis B Vaccine Completed 07/22/2023, 11/17/202 3 Influenza Vaccine (FLU shot) Completed 12/2023, 06/18/2023, 08/24/2022, Additional history exists HPV (Gardasil) Vaccine Aged Out No lo nger eligible based on patient's age to complete this topic MENINGOCOCCAL (MENACTRA/MENVEO) Aged Out No longer eligible based on patient's age to complete this topic documented as of this encounter Medical Devices Implanted Type Area Fisher Troll Line Device Identifier Shelf Expiration Date Model / Serial / Lot Mesh 3dmax 3.1x5.3in t Med - [id number] Implanted:Qty: 1 on 07/18/2018 by Daniel Anderson MD at OR [facility] Right: Groin CR BARD : DAVOL 04/29/2023 [id number] / / [id number] documented as of this encounter Care Teams Agriculture Technician Relationship Specialty Start Date End Date Angie Alves DO [address] [place] [address] PCP - General Family Medicine 11/08/23 documented as of this encounter
--- OUTSIDE RECORDS SUMMARY | 2024-09-01 23:53 | External Medical Summary | Summary of Care ---
Author Name Unknown Organization [facility] Address [address] [place] [address] Phone [phone] Care Team Providers Care Breaker Off Name Role Phone Angie Alves DO Primary Care Provider [phone] Reason for Referral * Evaluate & Treat - Unlimited Visits (Within 10 days (routine)) - Pending Review Specialty Diagnoses / Procedures Referred By Angely leong Referred To Contact Physical Therapy / Physical Medicine And Rehab Diagnoses Neck pain Radicular pain in left arm Ike Ward MD [address] [place] [address] Phone: tel: fax: Referral ID Status Reason Start Date Expiration Date Visits Requested Visits Authorized [id number] Pending Review Specialty Services Required 08/18/2024 999 [...] Ward MD [address] [place] [address] Phone: tel: fax: Referral ID Status Reason Start Date Expiration Date Visits Requested Visits Authorized [id number] Pending Review Specialty Services Required 08/18/2024 999 999 Question Answer Referral Priority Within 10 days (routine) Where should this appointment be scheduled? [facility] spine region: Neck - Cervical Do you have any recent complete loss of bladder or bowel function? No * Precert (Within 10 days (routine)) - Pending Review Specialty Diagnoses / Procedures Referred By Angely leong Referred To Contact Radiology Diagnoses Neck pain Radicular pain in left arm Procedures MRI C SPINE WO CONTRAST Ike Ward MD [address] [facility] [place] [address] Phone: tel: fax: Referral ID Status Reason Start Date Expiration Date V isits Requested Visits Authorized [id number] Pending Review 08/18/2024 999 999 * Evaluate & Treat - Unlimited Visits (Within 10 days (routine)) - Pending Review Specialty Diagnoses / Procedures Referred By Angely leong Referred To Contact Pain Management / Pain Medicine Diagnoses Neck pain Radicular pain in left arm Ike Ward MD [address] [facility] [place] [address] Phone: tel: fax: Referral ID Status Reason Start Date Expiration Date Visits Requested Visits Authorized [id number] Pending Review Specialty Services Required 08/18/2024 999 999 Question Answer Referral Priority Within 10 days (routine) Where should this appointment be scheduled? [facility] Reason for referral? Interventional Pain Management - (Injection) What condition is the patient being referred for? Cervical Radiculopathy What is the preferred location to have this test performed? [facility] Patient Name: Megan Amin Date of : 1970 Department Phone Number: : [phone] (if unable to have [...] pain if not done previously. Fax No. [facility] [phone] or contact drywall stripper [phone] Fax No. [facility] [phone] or contact drywall stripper [phone] Fax No. [facility] [phone] or contact drywall stripper [phone] Reason for Visit * Reason Comments NEW PATIENT Left shoulder * Evaluate & Treat - Unlimited Visits (Within 10 days (routine)) - Pending Review Specialty Diagnoses / Procedures Referred By Angely leong Referred To Contact Orthopaedic Surgery / Orthopedics Diagnoses Acute pain of left shoulder Karey Montoya CRNP [address] [place] [facility] [place] [facility] [address] Phone: tel: fax: Referral ID Status Reason Start Date Expiration Date Visits Requested Visits Authorized [id number] Pending Review Specialty Services Required 08/15/2024 999 999 Encounter Details Date Type Department Care Team ([facility] Contact Info) Description 08/18/2024 8:00 AM EST Office Visit Orthopaedics [facility] [address] [place] [address] Ike Ward MD [address] [place] [address] Neck pain*; Radicular pain in left arm Allergies Active Allergy Reactions Criticality Noted Date Comments Food (See Comments) Hives Medium 08/11/2013 Red beans per pt - Claritza Brand Red Dye #40 (Allura Red) Hives 11/02/2022 [place] patch sized welts-generalized areas documented as of this encounter (statuses as of 08/18/2024) Medications Hydrocortisone 2.5 % External OintmentIndicati ons:Dermatitis [...] Fluocinolone Acetonide Scalp 0.01 % External Oil ([place]-Smoothe/F S) Apply to scalp every other night, [...] as of this encounter (statuses as of 08/18/2024) Active Problems Problem Noted Date Diagnosed Date [...] symptoms persist/worsen. Food insecurity 06/14/2023 Overview: Per [facility] Protocol History of anemia 01/30/2021 [...] as of this encounter (statuses as of 08/18/2024) Resolved Problems Problem Noted Date Diagnosed Date [...] for intubation Copy of letter: RE: MR# [id number] Dear Megan Bustilloiday, During your recent health care encounter at [...] contact us by mail or phone at [phone]. We have included an order form for a medic alert bracelet if you choose to purchase one. Sincerely, Alyce Gomez MD Departments of Anesthesia and Critical Care Medicine [address] [place] [address], [address] [place] [address] Food insecurity 03/15/2018 11/22/2020 Overview: Per [facility] Protocol documented as of this encounter (statuses as of 08/18/2024) Immunizations Name Administration Dates Next Due COVID-19 mRNA, LNP-s, No Pre serve, 2-Dose Series ([employer]) 09/20/2020,08/30/2020 COVID-19, MRNA-LNP, PF, 30 M CG/0.3 mL, 12 YRS AND ABOVE, IM (PFIZER-Comirnaty) 07/22/2023 HEPATITIS B VACCINE, RECOMB, 20 MCG/ML, ADULT (HEPLISAV-B) 07/22/2023,06/18/2023 Pneumococcal Conjugate Vacci ne, 20-valent ([id number]) 08/24/2022 Seasonal Influenza Vac., MDV , IM, [...] No 06/11/2023 Does the household have a [facility] source of income? (Household - for ages [...] - 08/18/2024 8:00 AM EST Megan Amin [id number] Megan Amin is a 54 year old female who presents for consultation to [facility] for left shoulder injury/pain. Consult requested by Karey GODFREY. Megan Amin is here unaccompanied Note: Stacie Marquez MA was present as a residential sales throughout the patient's visit. 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[place] with BF who is [facility] Social Needs Financial Resource Strain: High Risk [...] Stability Do you currently live in a fdc or have no steady place to sleep [...] MRI Physical therapy referral Pain management referral To contact PCP about further pain management if steroid does not control her pain while she awaits consultation with the pain managent Ike Ward MD Primary Care Sports Medicine Orthopaedics [facility] [address] [place] [address] documented in this encounter Nursing Notes * Stacie Marquez MED ASSIST - 08/18/2024 8:27 AM EST Here for new patient visit regarding acute onset of left shoulder pain and burning that started about 3 days ago. documented in this encounter Plan of Treatment Upcoming Encounters Date Type Department Care Team (Late st Contact Info) Description 08/21/2024 5:00 PM EST Imaging Radiology [address], [place] [address] [place] [phone] 08/28/2024 10:00 AM EST Imaging Radiology [address], [place] [address] [place] [phone] 09/22/2024 1:50 PM EST Nutrition Services Nutrition & Weight Management, [facility] [address] [place] [address] Janet Astorga RDN [address] [place] [address] 09/29/2024 11:00 AM EST Office Visit Orthopaedics Spine Surgery [facility] [address] [place] [phone] Ortiz Jones MD [address] [place] [address] 10/06/2024 10:00 AM EST Office Visit Interventional Pain Center [facility] [address] [place] [phone] Darleen Francis PA-C [address] [place] [address] Scheduled Orders Name Type Priority Associated Diagnoses Orde r Schedule MRI C SPINE WO CONTRAST Medical Imaging Routine Neck pain Radicular pain in left arm Expected: 08/18/2024, Expires: 09/18/2025 Scheduled Procedures Name Priority Associated Diagnoses Date/Ti [...] this encounter Medical Devices Implanted Type Area Cupola Tender Device Identifier Shelf Expiration Date Model / Serial / Lot Mesh 3dmax 3.1x5.3in Rht Med - [id number] Implanted:Qty: 1 on 07/18/2018 by Daniel Anderson MD at OR [facility] Right: Groin CR BARD : DAVOL 04/29/2023 [id number] / / [id number] documented as of this encounter Procedures Procedure Name Priority Date/Time Associated Diagnosis Comments XR C SPINE 4-5 VIEWS Routine 08/18/2024 9:15 AM EST Neck pain Radicular pain in left arm documented in this encounter Results * XR C SPINE 4-5 VIEWS (08/18/2024 9:15 AM EST) Anatomical Region Laterality Modality Vertebra, Spine, Cspine Digital Radiography 08/18/2024 10:2 2 AM EST Impressions 08/18/2024 10:20 AM EST IMPRESSION Degenerative changes as discussed. Narrative 08/18/2024 10:20 AM EST EXAM XR C SPINE 4-5 VIEWS-08/18/2024 9:15 am HISTORY concern for cervical radiculopathy COMPARISON XR C SPINE 4-5 VIEWS, ACC: [id number], dated 2021-06-04 11:36:33; MRI C SPINE WO CONTRAST, ACC: [id number], dated 2020-10-04 07:39:50; MRI C SPINE WO CONTRAST, ACC: [id number], dated 2018-06-04 14:50:35; CERVICAL SPINE 4-5 VIEWS, ACC: [id number], dated 2009-10-31 15:14:18 TECHNIQUE AP lateral bilateral [...] COMPARISON XR C SPINE 4-5 VIEWS, ACC: [id number], dated 2021-06-04 11:36:33; MRI C SPINE WO CONTRAST, ACC: [id number], dated 2020-10-04 07:39:50; MRI C SPINE WO CONTRAST, ACC: [id number], dated 2018-06-04 14:50:35; CERVICAL SPINE 4-5 VIEWS, ACC: [id number], dated 2009-10-31 15:14:18 TECHNIQUE AP lateral bilateral [...] us Ike Ward MD RADIOLOGY (RAD GENE RAL) Final Result documented in this encounter Visit Diagnoses Diagnosis Viral upper respiratory tract infection- Primary Acute upper respiratory infections of unspecified site Upper respiratory tract infection, unspecified type Neck pain- Primary Cervicalgia Radicular pain in left arm Neuralgia, neuritis, and radiculitis, unspecified documented in this encounter Care Teams Breaker Off Relationship Specialty Start Date End Date Angie Alves DO [address] [facility] [place] [address] PCP - General Family Medicine 11/08/23 documented as of this encounter
--- OUTSIDE RECORDS SUMMARY | 2024-09-01 23:53 | External Medical Summary | Summary of Care ---
Author Name Unknown Organization [facility] Address [address] [place] [address] Phone [phone] Care Team Providers Care Dot Net Architect Name Role Phone Angie Alves DO Primary Care Provider [phone] Reason for Visit * Reason Onset Date Comments Advice 08/30/2024 Back,shoulder pa in Medication Refill 08/30/2024 Med Request 08/30/2024 Encounter Details Date Type Department Care Team (Late st Contact Info) Description 08/30/2024 Telephone Family Practice [facility] [address] [place] [address] Angie Alves DO [address] [facility] [address] Advice (Back,shoulder pain); Medication Re... Allergies Active Allergy Reactions Criticality Noted Date Comments Food (See Comments) Hives Medium 08/11/2013 Red beans per pt - Claritza Brand Red Dye #40 (Allura Red) Hives 11/02/2022 [place] patch sized welts-generalized areas documented as of [...] Fluocinolone Acetonide Scalp 0.01 % External Oil ([place]-Smoothe/F S) Apply to scalp every other night, [...] for intubation Copy of letter: RE: MR# [id number] Dear Megan Amin, During your recent health care encounter at [facility], your treatment required breathing management through [...] surgery, anesthesia, or mechanical ventilation at the [facility], we would like you or your healthcare proxy to tell your physicians to check your previous records regarding airway management. If you need similar services at another institution, we would advise you to inform your treating physicians of this problem. If you would like to discuss this further, please do not hesitate to contact us by mail or phone at [phone]. We have included an order form for a medic alert bracelet if you choose to purchase one. Sincerely, Alyce Gomez MD Departments of Anesthesia and Critical Care Medicine [address] [place] [address], [address] [place] [address] Food insecurity 03/15/2018 11/22/2020 Overview: Per [facility] Protocol documented as of this encounter (statuses as of 09/01/2024) Immunizations Name Administration Dates Next Due COVID-19 mRNA, LNP-s, No Pre serve, 2-Dose Series ([facility]) 09/20/2020,08/30/2020 COVID-19, MRNA-LNP, PF, 30 M CG/0.3 mL, 12 YRS AND ABOVE, IM (PFIZER-Comirnaty) 07/22/2023 HEPATITIS B VACCINE, RECOMB, 20 MCG/ML, ADULT (HEPLISAV-B) 07/22/2023,06/18/2023 Pneumococcal Conjugate Vacci ne, 20-valent ([id number]) 08/24/2022 Seasonal Influenza Vac., MDV , IM, [...] No 06/11/2023 Does the household have a [facility] source of income? (Household - for ages [...] any call back. Please call her at [phone] to discuss medications with her. She is [...] Please review. Thank you, Zakiya Sheffield CPhT Mortgage Loan Computation Clerk II [facility] 08/31/2024,9:46 [...] see for this problem? Karey Montoya at [facility] 3. What medications are you presently taking? [...] EST Nutrition Services Nutrition & Weight Management, [facility] [address] [address] Janet Astorga RDN [address] [address] 09/28/2024 4:00 PM EST Office Visit Family Practice [facility] [address] [address] Michelle Wright CRNP [address] [address] 09/29/2024 11:00 AM EST Office Visit Orthopaedics Spine Surgery [facility] [address] [place] [phone] Ortiz Jones MD [address] [place] [address] 10/06/2024 10:00 AM EST Office Visit Interventional Pain Center [facility] [address] [place] [phone] Darleen Francis PA-C [address] [place] [address] Scheduled Procedures Name Priority Associated Diagnoses Date/Ti [...] this encounter Medical Devices Implanted Type Area Primer Expeditor And Drier Device Identifier Shelf Expiration Date Model / Serial / Lot Mesh 3dmax 3.1x5.3in t Med - [id number] Implanted:Qty: 1 on 07/18/2018 by Daniel Anderson MD at OR [facility] [address] Right: Groin CR BARD : DAVOL 04/29/2023 [id number] / / [id number] documented as of this encounter Care Teams Dot Net Architect Relationship Specialty Start Date End Date Angie Alves DO [address] [place] [address] PCP - General Family Medicine 11/08/23 documented as of this encounter
--- OUTSIDE RECORDS SUMMARY | 2024-09-01 23:53 | External Medical Summary | Summary of Care ---
Author Name Unknown Organization [facility] Address [address] [place] [address] Phone [phone] Care Team Providers Care Cutter Barrel Drum Name Role Phone Angie Calvillo DO Primary Care Provider [phone] Reason for Visit * Reason Onset Date Comments Med Request 08/17/2024 Encounter Details Date Type Department Care Team (Late st Contact Info) Description 08/17/[address] [facility] [address] [place] [address] Angie Calvillo DO [address] [place] [address] Med Request Allergies Active Allergy Reactions Criticality Noted Date Comments Food (See Comments) Hives Medium 08/11/2013 Red beans per pt - Claritza Brand Red Dye #40 (Allura Red) Hives 11/02/2022 [place] patch sized welts-generalized areas documented as of [...] Fluocinolone Acetonide Scalp 0.01 % External Oil ([place]-Smoothe/F S) Apply to scalp every other night, [...] for intubation Copy of letter: RE: MR# [id number] Dear Megan Amin, During your recent health care encounter at [facility], your treatment required breathing management [...] surgery, anesthesia, or mechanical ventilation at the [facility], we would like you or your healthcare proxy to tell your physicians to check your previous records regarding airway management. If you need similar services at another institution, we would advise you to inform your treating physicians of this problem. If you would like to discuss this further, please do not hesitate to contact us by mail or phone at [phone]. We have included an order form for a medic alert bracelet if you choose to purchase one. Sincerely, Alyce Gomez MD Departments of Anesthesia and Critical Care Medicine [address] [place] [address], [address] [place] [address] Food insecurity 03/15/2018 11/22/2020 Overview: Per [facility] Protocol documented as of this encounter (statuses as of 08/17/2024) Immunizations Name Administration Dates Next Due COVID-19 mRNA, LNP-s, No Pre serve, 2-Dose Series (TeaMobi) 09/20/2020,08/30/2020 COVID-19, MRNA-LNP, PF, 30 M CG/0.3 mL, 12 YRS AND ABOVE, IM (PFIZER-Comirnaty) 07/22/2023 HEPATITIS B VACCINE, RECOMB, 20 MCG/ML, ADULT (HEPLISAV-B) 07/22/2023,06/18/2023 Pneumococcal Conjugate Vacci ne, 20-valent ([id number]) 08/24/2022 Seasonal Influenza Vac., MDV , IM, [...] encounter Miscellaneous Notes * Telephone Encounter - Anoop Lackey MD - 08/17/2024 12:30 PM EST I am covering for Dr Calvillo who has been out since April. Complaint reviewed. Messages reviewed. CC visit note reviewed. Short term muscle relaxer sent to her pharmacy - [facility]. She should not operate machinery/drive while she's taking the medication. She should continue with the plan to see orthopedics (referral was made at her appt). Please let her know thanks * Telephone Encounter - Jason Vasquez, collar shaper operator - 08/17/2024 10:13 AM EST Pt called in stating that medication from urgent care was not effective, and pt is requesting an alternative, possibly a muscle relaxer. Please advise. Thank you, Jason Vasquez Needle Process Felt Goods Supervisor [facility] [address] [facility], [address] [place] [address] [phone] 08/17/2024, 10:14 AM documented in this encounter Plan of Treatment Upcoming Encounters Date Type Department Care Team (Late st Contact Info) Description 08/18/2024 8:00 AM EST Office Visit Orthopaedics [facility] [address] [place] [phone] Ike Ward MD [address] [place] [address] 08/28/2024 10:00 AM EST Imaging Radiology [facility] 1st [facility] [address] [place] [phone] 09/22/2024 1:50 PM EST Nutrition Services Nutrition & Weight Management, [facility] [address] [place] [address] Janet Astorga RDN [address] [place] [address] Scheduled Procedures Name Priority Associated Diagnoses Date/Ti [...] this encounter Medical Devices Implanted Type Area Thumb Sewer Device Identifier Shelf Expiration Date Model / Serial / Lot Mesh 3dmax 3.1x5.3in t Med - [id number] Implanted:Qty: 1 on 07/18/2018 by Daniel Anderson MD at OR [facility] Right: Groin CR BARD : DAVOL 04/29/2023 [id number] / / [id number] documented as of this encounter Care Teams Cutter Barrel Drum Relationship Specialty Start Date End Date Angie Calvillo DO [address] [place] [address] PCP - General Family Medicine 11/08/23 documented as of this encounter
--- OUTSIDE RECORDS SUMMARY | 2024-09-01 23:53 | External Medical Summary | Summary of Care ---
Author Name Unknown Organization [facility] Address [address] [place] [address] Phone [phone] Care Team Providers Care Supervisor Poultry Processing Name Role Phone Angie Alves Primary Care Provider [phone] Reason for Visit * Reason Onset Date Comments Referral 09/01/2024 Fax number corre ction Encounter Details Date Type Department Care Team (Late st Contact Info) Description 09/01/2024 Telephone Orthopaedics [facility] [address] [place] [phone] Ike Ward MD [address] [place] [address] Referral (Fax number correction ) Allergies Active Allergy Reactions Criticality Noted Date Comments Food (See Comments) Hives Medium 08/11/2013 Red beans per pt - Claritza Brand Red Dye #40 (Allura Red) Hives 11/02/2022 [place] patch sized welts-generalized areas documented as of [...] Fluocinolone Acetonide Scalp 0.01 % External Oil ([place]-Smoothe/F S) Apply to scalp every other night, [...] for intubation Copy of letter: RE: MR# [id number] Dear Megan Amin, During your recent health care encounter at [facility] your treatment required breathing management through the [...] surgery, anesthesia, or mechanical ventilation at the [facility], we would like you or your healthcare proxy to tell your physicians to check your previous records regarding airway management. If you need similar services at another institution, we would advise you to inform your treating physicians of this problem. If you would like to discuss this further, please do not hesitate to contact us by mail or phone at [phone]. We have included an order form for a medic alert bracelet if you choose to purchase one. Sincerely, Alyce Gomez MD Departments of Anesthesia and Critical Care Medicine [address] [place] [address], [address] [place] [address] Food insecurity 03/15/2018 11/22/2020 Overview: Per [facility] Protocol documented as of this encounter (statuses as of 09/01/2024) Immunizations Name Administration Dates Next Due COVID-19 mRNA, LNP-s, No Pre serve, 2-Dose Series (Chamelic) 09/20/2020,08/30/2020 COVID-19, MRNA-LNP, PF, 30 M CG/0.3 mL, 12 YRS AND ABOVE, IM (PFIZER-Comirnaty) 07/22/2023 HEPATITIS B VACCINE, RECOMB, 20 MCG/ML, ADULT (HEPLISAV-B) 07/22/2023,06/18/2023 Pneumococcal Conjugate Vacci ne, 20-valent ([id number]) 08/24/2022 Seasonal Influenza Vac., MDV , IM, [...] 09/01/2024 9:51 AM EST Correct fax number [phone] pt calling back with corrected fax number * Telephone Encounter - Brianna Zuluaga OSA - 09/01/2024 9:32 AM EST Megan called in requesting PT referral be sent to [facility] to [facility] in [facility]. Fax . She would also like her orthopedic spine surgery referral [facility] documented in this encounter Plan of Treatment Upcoming Encounters Date Type Department Care Team (Late st Contact Info) Description 09/22/2024 1:50 PM EST Nutrition Services Nutrition & Weight Management, [facility] [address] [place] [address] Janet Astorga RDN [address] [place] [address] 09/28/2024 4:00 PM EST Office Visit Family Practice [facility] [address] [place] [address] Michelle Wright CRNP [address] [place] [address] 09/29/2024 11:00 AM EST Office Visit Orthopaedics Spine Surgery [facility] [address] [place] [phone] Ortiz Jones MD [address] [place] [address] 10/06/2024 10:00 AM EST Office Visit Interventional Pain Center [facility] [address] [place] [phone] Darleen Francis PA-C [address] [place] [address] Scheduled Procedures Name Priority Associated Diagnoses Date/Ti [...] this encounter Medical Devices Implanted Type Area Surveillance Inspector Device Identifier Shelf Expiration Date Model / Serial / Lot Mesh 3dmax 3.1x5.3in t Med - [id number] Implanted:Qty: 1 on 07/18/2018 by Daniel Anderson MD at OR [facility] Right: Groin CR BARD : DAVOL 04/29/2023 [id number] / / [id number] documented as of this encounter Care Teams Supervisor Poultry Processing Relationship Specialty Start Date End Date Angie Alves DO [address] [place] [address] PCP - General Family Medicine 11/08/23 documented as of this encounter
--- OUTSIDE RECORDS SUMMARY | 2024-09-01 23:54 | External Medical Summary ---
Author Name Unknown Address Unknown Organization K01:[facility] - [address] [place] [address] Laboratory Report Ordering Provider Test Date Status MARY WOLFF 08/01/2024 11:28:40 Final Observation Date Value Abnormality Reference (Units ) Status HbA1C 08/01/2024 11:28:40 6.1 Above high normal 4. 0-5.6 (%) Final The use of HbA1c to monitor glycemic status is based on normal hemoglobin and HbA composition. This test should not be used in patients with abnormal hemoglobin that affects the half life of the red blood cell or the in vivo glycation rates. Glucose, estimated average 08/01/2024 11:28:40 128 Above high normal <126 (mg/dL) Cedrick paiz Performing Location [facility]ORY [facility] - [address] [place] [address]
--- OUTSIDE RECORDS SUMMARY | 2024-09-01 23:54 | External Medical Summary | Summary of Care ---
Author Name Unknown Organization [facility] Address [address] [place] [address] Phone [phone] Care Team Providers Care Netbackup Admin Name Role Phone Angie Alves DO Primary Care Provider [phone] [phone] Reason for Visit * Reason Comments Outpatient Testing Encounter Details Date Type Department Care Team (Late st Contact Info) Description 08/01/2024 11:20 AM EST Laboratory Laboratory, [facility] [address] [place] [phone] [facility] [address] [place] [address] HTN, goal below 130/80; Gastroesophageal reflux disease, unspecified whether esophagitis present; Prediabetes; Encounter for long-term (current) use of medications; Type 2 diabetes mellitus with hemoglobin A1c goal of less than 7.0% ([facility]); Dyslipidemia, goal LDL below 100 Allergies Active Allergy Reactions Criticality Noted Date Comments Food (See Comments) Hives Medium 08/11/2013 Red beans per pt - Claritza Brand Red Dye #40 (Allura Red) Hives 11/02/2022 [place] patch sized welts-generalized areas documented as of this encounter (statuses as of 08/01/2024) Medications Hydrocortisone 2.5 % External OintmentIndicati ons:Dermatitis [...] Fluocinolone Acetonide Scalp 0.01 % External Oil ([place]-Smoothe/F S) Apply to scalp every other night, [...] GENITAL HERPES 30 Tablet 1 4 Active documented as of this encounter (statuses as of 08/01/2024) Active Problems Problem Noted Date Diagnosed Date [...] ear 06/26/2020 Tinnitus of both ears 06/24/2020 Prediabetes 03/11/2020 Overview: Per Prediabetes protocol Osteoarthritis of spine with radiculopathy, cerv ical region 08/04/2018 Abnormal EKG 02/18/2018 Well woman exam with routine gynecological exam 01/24/2018 HTN, goal below 130/80 01/13/2018 Urticaria 08/23/2013 Overview (08/23/2013): Aug. ,,2013. Esophageal reflux 12/13/2008 Irritable bowel syndrome 12/13/2008 documented as of this encounter (statuses as of 08/01/2024) Resolved Problems Problem Noted Date Diagnosed Date Resolved Date Food insecurity 03/10/2021 09/16/2022 Overview: Per [facility] Protocol Moderate episode of recurren t major depressive disorder 09/01/2019 12/03/2021 Difficult airway for intubation 07/18/2018 07/18/2018 Overview (07/18/2018): See the difficult airway letter, patient on cervical spine collar and need pediatric glides-cope MAC 2.5 for intubation Copy of letter: RE: MR# [id number] Dear Megan Amin, During your recent health [...] contact us by mail or phone at [phone]. We have included an order form for a medic alert bracelet if you choose to purchase one. Sincerely, Alyce Gomez MD Departments of Anesthesia and Critical Care Medicine [address] [place] [address], [address] [place] [address] Food insecurity 03/15/2018 11/22/2020 Overview: Per [facility] Protocol documented as of this encounter (statuses as of 08/01/2024) Immunizations Name Administration Dates Next Due COVID-19 mRNA, LNP-s, No Pre serve, 2-Dose Series (YesPlz!) 09/20/2020,08/30/2020 COVID-19, MRNA-LNP, PF, 30 M CG/0.3 mL, 12 YRS AND ABOVE, IM (PFIZER-Comirnaty) 07/22/2023 HEPATITIS B VACCINE, RECOMB, 20 MCG/ML, ADULT (HEPLISAV-B) 07/22/2023,06/18/2023 Pneumococcal Conjugate Vacci ne, 20-valent ([id number]) 08/24/2022 Seasonal Influenza Vac., MDV , IM, [...] AM EST documented as of this encounter Plan of Treatment Upcoming Encounters Date Type Department Care Team (Late st Contact Info) Description 08/28/2024 10:00 AM EST Imaging Radiology [facility] 1st [facility] [address] [facility] [place] [address] 09/22/2024 1:50 PM EST Nutrition Services Nutrition & Weight Management, [facility] [address] [place] [address] Janet Astorga RDN [address] [facility] [place] [address] Pending Results Name Type Priority Associated Diagnoses Date /Time CBC WITH WBC DIFFERENTIAL Lab Routine HTN, goal below 130/80 Gastroesophageal reflux disease, unspecified whether esophagitis present 08/01/2024 11:28 AM EST COMPREHENSIVE METABOLIC PANEL Lab Routine HTN, goal below 130/80 Gastroesophageal reflux disease, unspecified whether esophagitis present 08/01/2024 11:28 AM EST TSH WITH FREE T4 IF INDICATED Lab Routine HTN, goal below 130/80 Gastroesophageal reflux disease, unspecified whether esophagitis present 08/01/2024 11:28 AM EST LIPID PANEL WITH DIRECT LDL IF TG IS HIGH Lab Routine HTN, goal below 130/80 Gastroesophageal reflux disease, unspecified whether esophagitis present 08/01/2024 11:28 AM EST HEMOGLOBIN A1C Lab Routine HTN, goal below 130/80 Prediabetes 08/01/2024 11:28 AM EST VITAMIN B12 Lab Routine HTN, goal below 130/80 Encounter for long-term (current) use of medications 08/01/2024 11:28 AM EST MAGNESIUM Lab Routine HTN, goal below 130/80 Encounter for long-term (current) use of medications 08/01/2024 11:28 AM EST CBC Lab Routine HTN, goal below 130/80 Gastroesophageal reflux disease, unspecified whether esophagitis present 08/01/2024 11:28 AM EST DIFFERENTIAL, AUTOMATED Lab Routine HTN, goal below 130/80 Gastroesophageal reflux disease, unspecified whether esophagitis present 08/01/2024 11:28 AM EST Scheduled Procedures Name Priority Associated Diagnoses Date/Ti [...] 04/17/2021, 01/30, 09/03/2014, Additional history exists HbA1c 06/10/2024 12/09/2023, 08/03, 04/17/2021, Additional history exists Mammogram 09/09/2024 09/09/2023, 08/03, 08/24/2022, Additional history exists GFR 12/08/2024 12/09/2023, 08/04, 08/24/2022, Additional history exists Lipid Panel 12/08/2028 12/09/2023, 04/02, 02/14/2020, Additional history exists DTap/Tdap Vaccines (3 - [...] this encounter Medical Devices Implanted Type Area Client Coordinator Device Identifier Shelf Expiration Date Model / Serial / Lot Mesh 3dmax 3.1x5.3in t Med - [id number] Implanted:Qty: 1 on 07/18/2018 by Daniel Anderson MD at OR [facility] Right: Groin CR BARD : DAVOL 04/29/2023 [id number] / / [id number] documented as of this encounter Visit Diagnoses Diagnosis Viral upper respiratory tract infection- Primary Acute upper respiratory infections of unspecified site Upper respiratory tract infection, unspecified type HTN, goal below 130/80 Unspecified essential hypertension Gastroesophageal reflux disease, unspecified whether esophagitis present Prediabetes Other abnormal glucose Encounter for long-term (current) use of medications Encounter for long-term (current) use of other medications Type 2 diabetes mellitus with hemoglobin A1c goal of less than 7.0% (HCC) Dyslipidemia, goal LDL below 100 Other and unspecified hyperlipidemia documented in this encounter Care Teams Netbackup Admin Relationship Specialty Start Date End Date Angie Alves DO [address] [place] [address] PCP - General Family Medicine 11/08/23 documented as of this encounter
--- OUTSIDE RECORDS SUMMARY | 2024-09-01 23:54 | External Medical Summary | Summary of Care ---
Author Name Unknown Organization [facility] Address [address] [place] [address] Phone [phone] Care Team Providers Care Refrigeration Houseman Name Role Phone Angie Alves DO Primary Care Provider Encounter Details Date Type Department Care Team (Late st Contact Info) Description 07/06/2024 2:00 PM EST Immunization Ancillary [facility] [address] [place] [address] [facility], Flu Shot [facility] [address] [place] [address] Arrived Allergies Active Allergy Reactions Criticality Noted Date Comments Food (See Comments) Hives Medium 08/11/2013 Red beans per pt - Claritza Brand Red Dye #40 (Allura Red) Hives 11/02/2022 [place] patch sized welts-generalized areas documented as of this encounter (statuses as of 07/06/2024) Medications Hydrocortisone 2.5 % External OintmentIndicati ons:Dermatitis [...] Fluocinolone Acetonide Scalp 0.01 % External Oil ([place]-Smoothe/F S) Apply to scalp every other night, [...] Take 1 tablet daily. 3 Active hydroCHLOROthiaz joh npaul 12.5 MG Oral CapsuleIndicatio ns:HTN, goal below [...] for heartburn. 90 Capsule 1 4 Active valACYclovir HCl 500 MG Oral Tablet (Valtrex)Indicat ions:Recurrent genital herpes TAKE 1 TAB TWICE DAILY X3 DAYS FOR EPISODIC OUTBREAK OF GENITAL HERPES 30 Tablet 1 4 Active documented as of this encounter (statuses as of 07/06/2024) Active Problems Problem Noted Date Diagnosed Date Major depressive disorder, recurrent episode, mo derate 11/08/2023 Viral upper respiratory tract infection 09/10/19 24 Assessment & Plan (09/12/2023 3:45 PM EST): Likely viral. History reassuring. Discussed supportive care treatments and return parameters. Work note provided. Home covid test negative but she intends to wear a mask upon returning to work. Recommend in-person exam if symptoms persist/worsen. Food insecurity 06/14/2023 Overview: Per [facility] Protocol History of anemia 01/30/2021 [...] as of this encounter (statuses as of 07/06/2024) Resolved Problems Problem Noted Date Diagnosed Date Resolved Date Food insecurity 03/10/2021 09/16/2022 Overview: Per [facility] Protocol Moderate episode of recurren t major depressive disorder 09/01/2019 12/03/2021 Difficult airway for intubation 07/18/2018 07/18/2018 Overview (07/18/2018): See the difficult airway letter, patient on cervical spine collar and need pediatric glides-cope MAC 2.5 for intubation Copy of letter: RE: MR# [id number] Dear Megan Amin, During your recent health care encounter at [facility], your treatment required breathing management through [...] surgery, anesthesia, or mechanical ventilation at the [facility], we would like you or your healthcare proxy to tell your physicians to check your previous records regarding airway management. If you need similar services at another institution, we would advise you to inform your treating physicians of this problem. If you would like to discuss this further, please do not hesitate to contact us by mail or phone at [phone]. We have included an order form for a medic alert bracelet if you choose to purchase one. Sincerely, Alyce Gomez MD Departments of Anesthesia and Critical Care Medicine [address] [place] [address], [address] [place] [address] Food insecurity 03/15/2018 11/22/2020 Overview: Per [facility] Protocol documented as of this encounter (statuses as of 07/06/2024) Immunizations Name Administration Dates Next Due COVID-19 mRNA, LNP-s, No Pre serve, 2-Dose Series (Pfizer) 09/20/2020,08/30/2020 COVID-19, MRNA-LNP, PF, 30 M CG/0.3 mL, 12 YRS AND ABOVE, IM (PFIZER-Comirnaty) 07/22/2023 HEPATITIS B VACCINE, RECOMB, 20 MCG/ML, ADULT (HEPLISAV-B) 07/22/2023,06/18/2023 Pneumococcal Conjugate Vacci ne, 20-valent ([id number]) 08/24/2022 Seasonal Influenza Vac., MDV , IM, [...] Care Team (Late st Contact Info) Description 07/27/2024 3:20 PM EST Office Visit Family Practice [facility] [address] [place] [address] Michelle Wright CRNP [address] [place] [address] 08/28/2024 10:00 AM EST [facility] [address] [place] [address] 09/22/2024 1:50 PM EST Nutrition Services Nutrition & Weight Management, [facility] [address] [place] [address] Janet Astorga RDN [address] [place] [address] Scheduled Procedures Name Priority Associated Diagnoses Date/Ti me COLONOSCOPY FLEXIBLE PROXIMAL DIAGNOSTIC Recall Screen for colon cancer Health Maintenance Due Date Last Done Comments HPV/Co-Test 2002 Cologuard 2017 Fecal Occult Blood Test 2017 Sigmoidoscopy 2017 Depression Monitoring 10/20/2023 10/19/2022 COVID-19 Vaccine ( season) 2024 07/22/2023, 09/20/2020, 08/30/2020 Cervical Cancer Screening 04/17/2024 Pap Smear 04/17/2024 04/17/2021, 01/30, 09/03/2014, Additional history exists Mammogram 09/09/2024 09/09/2023, 08/03, 08/24/2022, Additional history exists Albumin/Creatinine Ratio 12/03/2024 12/03/2021 GFR 12/08/2024 12/09/2023, 08/04, 08/24/2022, Additional history exists HbA1c 12/08/2024 12/09/2023, 08/03, 04/17/2021, Additional history exists Lipid Panel 12/08/2028 12/09/2023, 04/02, 02/14/2020, Additional history exists DTap/Tdap Vaccines (3 - Td or Tdap) 02/13/2030 02/14/2020, 01/28/2010 Colonoscopy 11/04/2032 11/04/2022, 11/04/2022 Colorectal Cancer Screening 11/04/2032 Pneumococcal Vaccine: Pediatrics (0 to 5 Years) and At-Risk Patients (6 to 64 Years) Completed 08/24/2022 Zoster Vaccines Completed 01/05/2023, 08/24/2022 [...] this encounter Medical Devices Implanted Type Area Museum Or Zoo Director Device Identifier Shelf Expiration Date Model / Serial / Lot Mesh 3dmax 3.1x5.3in t Med - [id number] Implanted:Qty: 1 on 07/18/2018 by Daniel Anderson MD at OR [facility] Right: Groin CR BARD : DAVOL 04/29/2023 [id number] / / [id number] documented as of this encounter Care Teams Refrigeration Houseman Relationship Specialty Start Date End Date Angie Alves DO [address] [place] [address] PCP - General Family Medicine 11/08/23 documented as of this encounter
--- OUTSIDE RECORDS SUMMARY | 2024-09-01 23:54 | External Medical Summary ---
Author Name Unknown Address Unknown Organization K01:[facility] - [address] [place] [address] Laboratory Report Ordering Provider Test Date Status MARY WOLFF 08/01/2024 11:28:40 Final Observation Date Value Abnormality Reference (Units ) Status Magnesium 08/01/2024 11:28:40 2.0 1.5-2.6 (m g/dL) Final Performing Location [facility] - [address] [place] [address]
--- OUTSIDE RECORDS SUMMARY | 2024-09-01 23:54 | External Medical Summary ---
Author Name Unknown Address Unknown Organization K01:LAB[facility]ATORY [facility] - [address] [place] [address] Laboratory Report Ordering Provider Test Date Status MARY WOLFF 08/01/2024 11:28:40 Final Observation Date Value Abnormality Reference (Units ) Status Vitamin B12 08/01/2024 11:28:40 275 [id number] (pg/mL) Final Performing Location [facility] - [address] [place] [address]
--- OUTSIDE RECORDS SUMMARY | 2024-09-01 23:54 | External Medical Summary ---
Author Name Unknown Address Unknown Organization [id number]:LABORATORY [facility] [address] [place] [address] Laboratory Report Ordering Provider Test Date Status MARY WOLFF 08/01/2024 11:28:40 Final Observation Date Value Abnormality Reference (Units ) Status SYNC LEUKOCYTES IN BLOOD BY AUTOMATED COUNT 08/01/2024 11:28:40 5.30 4.00-10.80 (K/uL) Final Segs 08/01/2024 11:28:40 54.9 40.0-75.0 (%) Final Lymphs % 08/01/2024 11:28:40 38.7 18.0-42.0 (%) Final Monos 08/01/2024 11:28:40 5.3 1.0-11.0 (%) Final Eosinophils 08/01/2024 11:28:40 0.9 0.0-6.0 (%) Final Basos 08/01/2024 11:28:40 0.2 0.0-2.0 (%) Final Absolute Segs 08/01/2024 11:28:40 2.91 1.80-7.70 (K/uL) Final Lymphs, absolute 08/01/2024 11:28:40 2.05 1.00-4.80 (K/ul) Final Monos, Abs 08/01/2024 11:28:40 0.28 0.00-1.10 (K/uL) Final Eos, Abs 08/01/2024 11:28:40 0.05 0.00-0.70 (K/uL) Final Basos, Abs 08/01/2024 11:28:40 0.01 0.00-0.20 (K/uL) Final Performing Location LABORATORY [facility] [address] [place] [id number]
--- OUTSIDE RECORDS SUMMARY | 2024-09-01 23:54 | External Medical Summary ---
Author Name Unknown Address Unknown Organization [id number]:LABORATORY [facility] [address] [place] [address] Laboratory Report Ordering Provider Test Date Status MARY WOLFF 08/01/2024 11:28:40 Final Observation Date Value Abnormality Reference (Units ) Status WBC, Total 08/01/2024 11:28:40 5.30 4.00-10.8 0 (K/uL) Final RBC 08/01/2024 11:28:40 4.03 3.85-5.15 (M/uL) Final Hemoglobin 08/01/2024 11:28:40 12.1 12.0-15.3 (g/dL) Final HCT 08/01/2024 11:28:40 37.5 36.0-45.2 (%) Final MCV 08/01/2024 11:28:40 93.1 81.5-97.5 (fL) Final MCH 08/01/2024 11:28:40 30.0 27.0-34.0 (pg) Final MCHC 08/01/2024 11:28:40 32.3 32.0-36.0 (g/dL) Final RDW 08/01/2024 11:28:40 12.9 11.5-15.5 (%) Final Platelets 08/01/2024 11:28:40 296 140-400 (K /uL) Final MPV 08/01/2024 11:28:40 10.2 6.6-11.1 ( fL) Final Performing Location LABORATORY [facility] [address] [place] [address]
--- OUTSIDE RECORDS SUMMARY | 2024-09-01 23:54 | External Medical Summary ---
Author Name Unknown Address Unknown Organization K01:[facility] [address] [place] [address] Laboratory Report Ordering Provider Test Date Status MARY WOLFF 08/01/2024 11:28:40 Final Observation Date Value Abnormality Reference (Units ) Status Triglyceride 08/01/2024 11:28:40 70 <=174 ( mg/dL) Final Triglyceride Reference Range s (mg/dL):
<150 Acceptable
150-174 Borderline high
175-499 High
>=500 Very high Cholesterol 08/01/2024 11:28:40 214 Above high normal <200 (mg/dL) Final Total Cholesterol Reference Ranges (mg/dL):
<200 Desirable
200-239 Borderline high
>=240 High HDL 08/01/2024 11:28:40 62 >49 (mg/dL ) Final HDL Cholesterol Reference Ra nges (mg/dL):
>=60 High (Desirable)
<50 Low (Undesirable) For Females
<40 Low (Undesirable) For Males NON-HDL CHOLESTEROL 08/01/2024 11:28:40 152 <=159 (mg/dL) Final Non-HDL Cholesterol Referenc e Range (mg/dL):
<100 Target level for high risk ASCVD patient
<130 Optimal for general population
130-159 Near optimal for general population
160-189 Borderline High
190-219 High
>=220 Very High LDL, (calculated) 08/01/2024 11:28:40 138 Above high n ormal <=129 (mg/dL) Final LDL Cholesterol Reference Ra nges (mg/dL):
<70 Target level for high risk ASCVD patient
<100 Optimal for general population
100-129 Near optimal for general population
130-159 Borderline high
160-189 High
>=190 Very high Performing Location LABORATORY [facility] - [address] [facility] [address]
--- OUTSIDE RECORDS SUMMARY | 2024-09-01 23:54 | External Medical Summary | Summary of Care ---
Author Name Unknown Organization [facility] Address [address] [place] [address] Phone [phone] Care Team Providers Care French Teacher Name Role Phone Angie Alves DO Primary Care Provider [phone] Reason for Referral * Evaluate & Treat - Unlimited Visits (Within 10 days (routine)) - Pending Review Specialty Diagnoses / Procedures Referred By Angely leong Referred To Contact Orthopaedic Surgery / Orthopedics Diagnoses Acute pain of left shoulder Karey Montoya CRNP [address] [place] [address] Phone: tel: fax: Referral ID Status Reason Start Date Expiration Date Visits Requested Visits Authorized [id number] Pending Review Specialty Services Required 08/15/[phone] Question Answer Referral Priority Within 10 days (routine) Where should this appointment be scheduled? [facility] What body part is the patient being seen for? Shoulder What condition is the patient being seen for? Sprain/Strain/Tear/Other Comments R shoulder/arm pain, rotator cuff vs. Impingement syndrome, known CS DDD Reason for Visit * Reason Comments Other Left arm pain Down t o fingertipsPt was trying to handle too many bags, reports throbbing , feels dull, sharp. Stabbing pain Encounter Details Date Type Department Care Team (Latest Contact Info) Description 08/15/2024 7:45 PM EST Convenient Care Visit [facility] [address] [place] [address] Karey Montoya, EPIFANIO [address] [place] [id number] Acute pain of left shoulder* Allergies Active Allergy Reactions Criticality Noted Date Comments Food (See Comments) Hives Medium 08/11/2013 Red beans per pt - Claritza Brand Red Dye #40 (Allura Red) Hives 11/02/2022 [place] patch sized welts-generalized areas documented as of this encounter (statuses as of 08/15/2024) Medications Hydrocortisone 2.5 % External OintmentIndicati ons:Dermatitis [...] Fluocinolone Acetonide Scalp 0.01 % External Oil ([place]-Smoothe/F S) Apply to scalp every other night, [...] pain.. 30 Tablet 5 09/14/19 25 Active documented as of this encounter (statuses as of 08/15/2024) Active Problems Problem Noted Date Diagnosed Date [...] as of this encounter (statuses as of 08/15/2024) Resolved Problems Problem Noted Date Diagnosed Date Resolved Date Food insecurity 03/10/2021 09/16/2022 Overview: Per [facility] Protocol Moderate episode of recurren t major depressive disorder 09/01/2019 12/03/2021 Difficult airway for intubation 07/18/2018 07/18/2018 Overview (07/18/2018): See the difficult airway letter, patient on cervical spine collar and need pediatric glides-cope MAC 2.5 for intubation Copy of letter: RE: MR# [id number] Dear Megan Amin, During your recent health care encounter at [facility], your treatment required breathing management through [...] surgery, anesthesia, or mechanical ventilation at the [facility], we would like you or your healthcare proxy to tell your physicians to check your previous records regarding airway management. If you need similar services at another institution, we would advise you to inform your treating physicians of this problem. If you would like to discuss this further, please do not hesitate to contact us by mail or phone at [phone]. We have included an order form for a medic alert bracelet if you choose to purchase one. Sincerely, Alyce Gomez MD Departments of Anesthesia and Critical Care Medicine [address] [place] [address], [address] [place] [address] Food insecurity 03/15/2018 11/22/2020 Overview: Per [facility] Protocol documented as of this encounter (statuses as of 08/15/2024) Immunizations Name Administration Dates Next Due COVID-19 mRNA, LNP-s, No Pre serve, 2-Dose Series (Pfizer) 09/20/2020,08/30/2020 COVID-19, MRNA-LNP, PF, 30 M CG/0.3 mL, 12 YRS AND ABOVE, IM (PFIZER-Comirnaty) 07/22/2023 HEPATITIS B VACCINE, RECOMB, 20 MCG/ML, ADULT (HEPLISAV-B) 07/22/2023,06/18/2023 Pneumococcal Conjugate Vacci ne, 20-valent ([id number]) 08/24/2022 Seasonal Influenza Vac., MDV , IM, [...] Date Smoking Tobacco: Never Smokeless Tobacco: Never Tobacco Cessation:Counseling Given: Not Answered Comments:no passive smoke Alcohol Use Standard Drinks/Week [...] AM EST documented as of this encounter Last Filed Vital Signs Vital Sign Reading Time Taken Comments Blood Pressure 138/72 08/15/2024 7:59 PM EST Pulse 88 08/15/2024 7:59 PM EST Temperature 36.6 C (97.8 F) 08/15/2024 7:59 PM ES T Respiratory Rate 18 08/15/2024 7:59 PM EST Oxygen Saturation 100% 08/15/2024 7:59 PM EST Inhaled Oxygen Concentration - - Weight 91.2 kg (201 lb) 08/15/2024 7:59 PM EST Height 157.5 cm (5' 2") 08/15/2024 7:59 PM EST Body Mass Index 36.76 08/15/2024 7:59 PM EST documented in this encounter Progress Notes * Karey Montoya, EPIFANIO - 08/15/2024 8:18 PM EST Images from the original note were not included. [facility]ient Care Basic Exam Subjective Megan Amin is a 54 year old female that presents to the [facility] with an acute pain to her left shoulder. She does have chronic DDD in the C-Spine and history of right shoulder/arm neuropathic pain. This pain she believes came on from carrying a heavy load with the left arm to compensate for her right arm and it started as a severe pain in the back of the shoulder that wrapped around the top anddown the front of the shoulder. She has shooting pains that go down the back of the left arm and wrap around to the top of the forearm. The pain extends down the hand into the fingers, worst in finger s 4 and 5 but present in the first three fingers. Of note the most recent [facility] imaging was in 2020: EXAM XR C SPINE 4-5 VIEWS,06/04/2021 1:13 pm HISTORY 50 y/o withcervical radiculopathy COMPARISON MRI C SPINE WO CONTRAST dated 10/04/2020 TECHNIQUE AP, lateral, flexion and extension views of [...] Moderate degenerative disc disease at C5-C6 and C6-C7. Objective BP 138/72 | Pulse 88 | Temp 36.6 C (97.8 F) (Tympanic) | Resp 18 | Ht 1.575 m (5' 2") | Wt 91.2kg (201 lb) | LMP (LMP Unknown) | SpO2 100% | No | BMI 36.76 kg/m | BSA 2 m Body mass index is 36.76 kg/m. Review of Systems Constitutional: Negative. HENT: Negative. Respiratory: Negative. Cardiovascular: Negative. Gastrointestinal: Negative. Genitourinary: Negative. Musculoskeletal: Positive for arthralgias. Skin: Negative. Neurological: Shooting and burning pain in the left shoulder and arm. Physical Exam Vitals and nursing note reviewed. HENT: Head: Normocephalic and atraumatic. Cardiovascular: Rate and Rhythm: Normal rate. Pulses: Normal pulses. Comments: Radial and ulnar pulses normal bilat Pulmonary: Effort: Pulmonary effort is normal. Musculoskeletal: General: Tenderness present. Left shoulder: Tenderness and bony tenderness present. Decreased range of motion. Left upper arm: Tenderness present. Left elbow: Tenderness present. Left forearm: Tenderness present. Left hand: Swelling and tenderness present. Arms: Comments: Pain starts in the back of the shoulder, wraps up and over. Then follows a path down the back/underside of her arm and then down the lateral top of the forearm into the fingers. Pain makes testing and shoulder exam difficult. Does have pain with Neer's test. Does have pain with forward flexion, abduction, cross body adduction, extension, internal rotation. Unable to do empty can test d/t pain. unable to check lag sign d/t pain. Skin: General: Skin is warm and dry. Capillary Refill: Capillary refill takes less than 2 seconds. Comments: Hands same temp bilat. Some puffy swelling to the top of the left hand and the left fingers. Neurological: Mental Status: She is alert and oriented to person, place, and time. Past Medical History: Diagnosis Date Irritable bowel syndrome Other genital herpes Unsatisfactory cervical Papanicolaou smear 1996 colpo Patient Active Problem List Diagnosis Esophageal reflux Irritable bowel syndrome Urticaria HTN, goal below 130/80 Well woman exam with routine gynecological exam Abnormal EKG Osteoarthritis of spine with radiculopathy, cervical region Prediabetes Tinnitus of both ears Conductive hearing loss of right ear with unrestricted hearing of left ear History of anemia Food insecurity Viral upper respiratory tract infection Major depressive disorder, recurrent episode, moderate (HCC) Diabetes mellitus without complication (HCC) BP Readings from Last 3 Encounters: 08/15/24 138/72 06/20/24 138/88 12/09/23 114/74 Wt Readings from Last 3 Encounters: 08/15/24 91.2 kg (201 lb) 06/20/24 89.2 kg (196 lb 11.2 oz) 12/09/23 91.6 kg (202 lb) Assessment and plan Acute pain of left shoulder (Primary) - ORTHOPAEDICS REFERRAL OP - Lidocaine 5 % External Patch (Lidoderm); Place 1 Patch over 12 hours topically on the skin daily for 10 days. - Meloxicam 15 MG Oral Tablet (Mobic); Take 1 Tablet by mouth in the morning. for pain.. - XR SHOULDER, 2 OR MORE VIEWS; Future; Expected date: 08/15/2024 Reviewed plan of care. Will obtain xray. Reviewed rx. Ortho referral it is quite possible that this pain is nerve pain which may be better benefited fromneuropathic agents or even PT, however she endorses that it has been quite some time since she had her CS DDD evaluated and there had been discussion about surgery a couple years ago when she was first diagnosed. Can also determine if more advanced imaging is indicated. Reviewed removing the lidocaine patch after 12 hrs to stay off for 12 to ensure it continues being effective. Short term high-dose NSAID. Shoulder sling applied for support. But should still plan to do some exercises and rotation to prevent the arm from getting stiff. Elevation is helpful to reduce swelling. Plan to open/close fingers often. Follow up Follow Up: Return if symptoms worsen or fail to improve. Total time today including reviewing chart before the visit, pertinent labs, imaging reports, face to face time, and documentation time was 30 minutes. The above was discussed and understanding was expressed. EPIFANIO Farrell documented in this encounter Nursing Notes * Karolyn Chong LPN - 08/15/2024 8:08 PM EST Megan Amin is a 54 year old female who presents to walk-in clinic today complaining of Chief Complaint Patient presents with Other Left arm pain Down to fingertips Pt was trying to handle too many bags, reports throbbing , feels dull, sharp. Stabbing pain Pt was having some discomfort in same arm. Reports some nerve damage in right arm, off and on pain in Left arm. This a.m. "it took the cake" OTC treatments tried: nothing, was busy at work. Patient is accompanied by no one for today's visit. documented in this encounter Plan of Treatment Upcoming Encounters Date Type Department Care Team (Late st Contact Info) Description 08/28/2024 10:00 AM EST Imaging Radiology [facility] [address] [place] [id number] 09/22/2024 1:50 PM EST Nutrition Services Nutrition & Weight Management, [facility] [address] [place] [address] Janet Astorga RDN [address] [place] [address] Scheduled Orders Name Type Priority Associated Diagnoses Orde r Schedule XR SHOULDER, 2 OR MORE VIEWS Medical Imaging Routine Acute pain of left shoulder Expected: 08/15/2024, Expires: 09/15/2024 Scheduled Procedures Name Priority Associated Diagnoses Date/Ti me COLONOSCOPY FLEXIBLE PROXIMAL DIAGNOSTIC Recall Screen for colon cancer Scheduled Referrals Name Type Priority Associated Diagnoses Order Schedule ORTHOPAEDICS REFERRAL OP Referral Within 10 days (routine) Acute pain of left shoulder Ordered: 08/15/2024 Health Maintenance Due Date Last Done Comments [...] this encounter Medical Devices Implanted Type Area Shower Doors And Panels Fabricator Device Identifier Shelf Expiration Date Model / Serial / Lot Mesh 3dmax 3.1x5.3in t Med - [id number] Implanted:Qty: 1 on 07/18/2018 by Daniel Anderson MD at [facility] Right: Groin CR BARD : DAVOL 04/29/2023 [id number] / / [id number] documented as of this encounter Visit Diagnoses Diagnosis Viral upper respiratory tract infection- Primary Acute upper respiratory infections of unspecified site Upper respiratory tract infection, unspecified type Acute pain of left shoulder- Primary documented in this encounter Care Teams French Teacher Relationship Specialty Start Date End Date Angie Alves DO [address] [place] [address] PCP - General Family Medicine 11/08/23 documented as of this encounter
--- OUTSIDE RECORDS SUMMARY | 2024-09-01 23:54 | External Medical Summary | Summary of Care ---
Author Name Unknown Organization [facility] Address [address] [place] [address] Phone [phone] Care Team Providers Care Family Support Specialist Name Role Phone Angie Alves Primary Care Provider [phone] Reason for Visit * Reason Comments Acute Head congestion, run ny nose, body aches, SCHAEFFER, sneezing and prod cough x Wednesday. Drinking Throat Coat Tea, thera-flu BID in her tea. Some relief, but sx returned. Encounter Details Date Type Department Care Team (Late st Contact Info) Description 2024 3:20 PM EST [facility] [place] [place] [address] Ham Ortez MD [address] [facility] [place] [id number] Viral URI with cough*; Diabetes mellitus without complication (HCC); Recurrent genital herpes Allergies Active Allergy Reactions Criticality Noted Date Comments Food (See Comments) Hives Medium 08/11/2013 Red beans per pt - Claritza Brand Red Dye #40 (Allura Red) Hives 11/02/2022 [place] patch sized welts-generalized areas documented as of this encounter (statuses as of 07/29/2024) Medications Hydrocortisone 2.5 % External OintmentIndicat ions:Dermatitis Apply to neck, shoulders nightly as needed 20 g 1 3 Active Albuterol Sulfate HFA 108 (90 Base) MCG/ACT Inhalation Aerosol Solution Inhale 2 Puffs by mouth every 6 hours as needed for Cough, Shortness of Breath or Wheezing. 3 Active BD Assure BPM/Manual Arm Cuff Use twice daily as needed. 3 Active Fluocinolone Acetonide Scalp 0.01 % External Oil ([place]-Smoothe/ FS) Apply to scalp every other night, as [...] Tablet Take 1 tablet daily. 3 Active hydroCHLOROthia zide 12.5 MG Oral CapsuleIndicati ons:HTN, goal below 130/80 Take 1 Capsule by mouth in the morning. 90 Capsule 3 4 Active Famotidine 20 MG Oral Tablet (Pepcid)Indicat ions:Gastroesop hageal reflux disease without esophagitis Take 1 Tablet by mouth in the morning. 90 Tablet 3 4 Active Omeprazole 20 MG Oral Capsule Delayed Release (PriLOSEC) Take 1 tablet daily as needed for heartburn. 90 Capsule 1 4 Active Benzonatate 100 MG Oral Capsule (Tessalon Perles)Indicati ons:Viral URI with cough Take 1 Capsule by mouth 3 times a day as needed for Cough. Do not cut, crush, or chew. 50 Capsule 1 4 Active valACYclovir HCl 500 MG Oral Tablet (Valtrex)Indica tions:Recurrent genital herpes TAKE 1 TAB TWICE DAILY X3 DAYS FOR EPISODIC OUTBREAK OF GENITAL HERPES 30 Tablet 1 4 Active valACYclovir HCl 500 MG Oral Tablet (Valtrex)Indica tions:Recurrent genital herpes TAKE 1 TAB TWICE DAILY X3 DAYS FOR EPISODIC OUTBREAK OF GENITAL HERPES 30 Tablet 1 4 07/19/20 24 Discontinu ed(Refill) Oseltamivir Phosphate 75 MG Oral Capsule (Tamiflu)Indica tions:Viral URI with cough Take 1 Capsule by mouth in the morning and 1 Capsule before bedtime. Do all this for 5 days. For 5 days.. 10 Capsule 4 07/24/20 24 documented as of this encounter (statuses as of 07/29/2024) Active Problems Problem Noted Date Diagnosed Date [...] as of this encounter (statuses as of 07/29/2024) Resolved Problems Problem Noted Date Diagnosed Date Resolved Date Food insecurity 03/10/2021 09/16/2022 Overview: Per [facility] Protocol Moderate episode of recurren t major depressive disorder 09/01/2019 12/03/2021 Difficult airway for intubation 07/18/2018 07/18/2018 Overview (07/18/2018): See the difficult airway letter, patient on cervical spine collar and need pediatric glides-cope MAC 2.5 for intubation Copy of letter: RE: MR# [id number] Dear Megan Amin, During your recent health care encounter at [facility], your treatment required breathing management through the [...] surgery, anesthesia, or mechanical ventilation at the [facility], we would like you or your healthcare proxy to tell your physicians to check your previous records regarding airway management. If you need similar services at another institution, we would advise you to inform your treating physicians of this problem. If you would like to discuss this further, please do not hesitate to contact us by mail or phone at [phone]. We have included an order form for a medic alert bracelet if you choose to purchase one. Sincerely, Alyce Gomez MD Departments of Anesthesia and Critical Care Medicine [address] [place] [address], [address] [place] [address] Food insecurity 03/15/2018 11/22/2020 Overview: Per [facility] Protocol documented as of this encounter (statuses as of 07/29/2024) Immunizations Name Administration Dates Next Due COVID-19 mRNA, LNP-s, No Pre serve, 2-Dose Series (handsomexcutive) 09/20/2020,08/30/2020 COVID-19, MRNA-LNP, PF, 30 M CG/0.3 mL, 12 YRS AND ABOVE, IM (PFIZER-Comirnaty) 07/22/2023 HEPATITIS B VACCINE, RECOMB, 20 MCG/ML, ADULT (HEPLISAV-B) 07/22/2023,06/18/2023 Pneumococcal Conjugate Vacci ne, 20-valent ([id number]) 08/24/2022 Seasonal Influenza Vac., MDV , IM, [...] as of this encounter Progress Notes * Ham Ortez MD - 2024 3:47 PM EST Images from the original note were not included. Subjective Megan Amin is a 54 year old female that presents for Acute (Head congestion, runny nose, bodyaches, SCHAEFFER, sneezing and prod cough x Wednesday. Drinking Throat Coat Tea, thera-flu BID in her tea. Some relief, but sx returned.) History of Present Illness The patient, with a history of diabetes, began experiencing symptoms of an upper respiratory infection on Wednesday. She initially noticed a need to clear her throat during breakfast, which was neither painful nor itchy. As the day progressed, the throat-clearing persisted and by nightfall, the patient's throat felt scratchy and irritated, accompanied by sporadic sneezing and coughing. She attemptedto alleviate these symptoms with Theraflu and a homemade tea mixture containing asia, cinnamon, lemon juice, and honey. Upon waking the next day, the patient reported a sensation of congestion in her throat and continued irritation. She continued to consume Theraflu and tea throughout the day. The patient also used a eucalyptus tea bag for relief. Despite these efforts, the patient began to experience intermittent aches and suspected sinus issues, which were exacerbated by exposure to smoke. The patient's symptoms have since progressed, with her nose alternating between congestion and spontaneous running. She has also begun to experience mild chills and body aches. The patient reports that her entire face hurts, and she has a cough with occasional mucus production. She also notes a sensation of chest congestion and internal irritation. The patient's daughter has been experiencing similar symptoms. The patient has received her flu shot and is due for a COVID-19 booster shot. She has also received her pneumonia shots. The patient's temperature was recorded at 98 degrees Fahrenheit. She has been managing her symptoms with Theraflu, tea, and water, but has noted a progression of symptoms. 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 She is concerned about potentially spreading her illness to the residents of the snf community. Objective There were no vitals filed for this visit. Physical Exam VITALS: T- 98 per patient Video visit: observation only, NAD. Few episodes of dry cough I have reviewed the following results: Results Assessment and Plan Assessment & Plan Upper Respiratory Infection (URI) Symptoms began on Wednesday with throat irritation, progressing to congestion, sneezing, and a scratchy throat. Currently experiencing nasal congestion, facial pain, mild chills, body aches, and a productive cough with mucus. Differential includes viral URI, influenza, and COVID-19. Likely viral etiology given the time course and symptoms. Discussed early flu and Tamiflu use within 48 hours. Advisedon hydration, salt water spray, and rest. Informed that Tamiflu is most effective if started [id number] hours of symptom onset. Paxlovid is not effective for mild COVID-19 symptoms. Advised Bandar Nicole for cough management. - Send prescription for Tamiflu - Send prescription for Tessalon Perles - Advise on hydration with tea and water - Recommend salt water spray for sinus congestion - Advise staying home from work until symptoms improve for at least 24 hours Herpes Simplex Virus (HSV) Prophylaxis Requested Valtrex to prevent an outbreak during illness. Agreed to provide Valtrex to manage potential HSV flare-ups. - Send prescription for Valtrex General Health Maintenance Received flu shot recently and is due for a COVID-19 booster. Advised to wait until feeling better before getting the COVID-19 booster. Confirmed up-to-date on pneumonia vaccination. - Advise to get COVID-19 booster once feeling better Follow-up - Send work note excusing through at least 07/21, with return contingent on symptom improvement for24 hours. Viral URI with cough (Primary) - Benzonatate 100 MG Oral Capsule (Tessalon Perles); Take 1 Capsule by mouth 3 times a day as needed for Cough. Do not cut, crush, or chew. - Oseltamivir Phosphate 75 MG Oral Capsule (Tamiflu); Take 1 Capsule by mouth in the morning and 1 Capsule before bedtime. Do all this for 5 days. For 5 days.. Diabetes mellitus without complication (HCC) Recurrent genital herpes - valACYclovir HCl 500 MG Oral Tablet (Valtrex); TAKE 1 TAB TWICE DAILY X3 DAYS FOR EPISODIC OUTBREAK OF GENITAL HERPES Wrap-Up Time: I spent a total of 20-29 minutes (exact time 26 mins) on the date of service in preparation, delivery, and documentation of the care provided to Megan Amin excluding any time spent in the performance of separately billed services. Text in this note was generated using an ambient documentation service. I discussed the use of a device to record and summarize our discussion today. All persons present during the encounter consented to its use. documented in this encounter Nursing Notes * Shelia Espinoza CMA - 2024 3:08 PM EST Chief Complaint Patient presents with Acute Head congestion, runny nose, body aches, SCHAEFFER, sneezing and prod cough x Wednesday. Drinking Throat CoatTea, thera-flu BID in her tea. Some relief, but sx returned. documented in this encounter Plan of Treatment Upcoming Encounters Date Type Department Care Team (Late st Contact Info) Description 08/28/2024 10:00 AM EST Imaging Radiology [facility] [address] [facility] [place] [address] 09/22/2024 1:50 PM EST Nutrition Services Nutrition & Weight Management, [facility] [address] [facility] [place] [address] Janet Astorga RDN [address] [facility] [place] [address] Scheduled Procedures Name Priority Associated Diagnoses Date/Ti [...] this encounter Medical Devices Implanted Type Area Benefits Manager Device Identifier Shelf Expiration Date Model / Serial / Lot Mesh 3dmax 3.1x5.3in t Med - [id number] Implanted:Qty: 1 on 07/18/2018 by Daniel Anderson MD at OR [facility] Right: Groin CR BARD : DAVOL 04/29/2023 [id number] / / [id number] documented as of this encounter Visit Diagnoses Diagnosis Viral upper respiratory tract infection- Primary Acute upper respiratory infections of unspecified site Upper respiratory tract infection, unspecified type Viral URI with cough- Primary Acute upper respiratory infections of unspecified site Diabetes mellitus without complication (HCC) Type II or unspecified type diabetes mellitus without mention of complication, not stated as uncontrolled Recurrent genital herpes Genital herpes, unspecified documented in this encounter Care Teams Family Support Specialist Relationship Specialty Start Date End Date Angie Alves DO [address] [place] [address] PCP - General Family Medicine 11/08/23 documented as of this encounter
--- OUTSIDE RECORDS SUMMARY | 2024-09-01 23:54 | External Medical Summary ---
Author Name Unknown Address Unknown Organization [facility] [place] [facility] [address] [place] [address] Laboratory Report Ordering Provider Test Date Status MARY WOLFF 08/01/2024 11:28:40 Final Observation Date Value Abnormality Reference (Units ) Status BUN 08/01/2024 11:28:40 10 6-20 (mg/dL) Final Creatinine 08/01/2024 11:28:40 0.7 0.5-1.0 (mg/dL) Final Glomerular filtration rate/1.73 sq M.predicted [Volume Rate/Area] in Serum, Plasma or Blood by Creatinine-based formula (CKD-EPI) 08/01/2024 11:28:40 >90 >=60 (mL/min) Final eGFR is calculated based on the CKD-EPI 2020 equation. Sodium 08/01/2024 11:28:40 142 135-146 (m mol/L) Final Potassium 08/01/2024 11:28:40 4.1 3.5-5.1 (m mol/L) Final Cl 08/01/2024 11:28:40 103 98-107 (mm ol/L) Final CO2 08/01/2024 11:28:40 26 22-32 (mmo l/L) Final Anion gap 08/01/2024 11:28:40 13 7-15 (mmol /L) Final Glucose 08/01/2024 11:28:40 104 70-120 (mg /dL) Final Albumin 08/01/2024 11:28:40 4.2 3.8-5.0 (g /dL) Final AST (Aspartate aminotransferase) 08/01/2024 11:28:40 14 10-35 (U/L) Final Alk Phos 08/01/2024 11:28:40 88 35-130 (U/ L) Final Bilirubin, Total 08/01/2024 11:28:40 0.3 <=1 .2 (mg/dL) Final Calcium 08/01/2024 11:28:40 8.9 8.4-10.2 ( mg/dL) Final Protein 08/01/2024 11:28:40 7.4 6.0-8.3 (g /dL) Final ALT (Alanine aminotransferase) 08/01/2024 11:28:40 12 10-35 (U/L) Final [facility] Location [facility] [place] [address]
--- OUTSIDE RECORDS SUMMARY | 2024-09-01 23:54 | External Medical Summary | Summary of Care ---
Author Name Unknown Organization [facility] Address [address] [place] [address] Phone [phone] Care Team Providers Care Head Girls Golf Coach Name Role Phone Angie Alves DO Primary Care Provider Encounter Details Date Type Department Care Team (Late st Contact Info) Description 07/06/2024 Telephone Family Practice [facility] [address] [place] [address] Angie Alves DO [address] [place] [address] Allergies Active Allergy Reactions Criticality Noted Date Comments Food (See Comments) Hives Medium 08/11/2013 Red beans per pt - Claritza Brand Red Dye #40 (Allura Red) Hives 11/02/2022 [place] patch sized welts-generalized areas documented as of [...] Fluocinolone Acetonide Scalp 0.01 % External Oil ([place]-Smoothe/F S) Apply to scalp every other night, [...] symptoms persist/worsen. Food insecurity 06/14/2023 Overview: Per [facility] Protocol History of anemia 01/30/2021 [...] for intubation Copy of letter: RE: MR# [id number] Dear Megan Amin, During your recent health care encounter at [facility] [place], your treatment required breathing management through the [...] surgery, anesthesia, or mechanical ventilation at the [facility] [place], we would like you or your healthcare proxy to tell your physicians to check your previous records regarding airway management. If you need similar services at another institution, we would advise you to inform your treating physicians of this problem. If you would like to discuss this further, please do not hesitate to contact us by mail or phone at [phone]. We have included an order form for a medic alert bracelet if you choose to purchase one. Sincerely, Alyce Gomez MD Departments of Anesthesia and Critical Care Medicine [address] [place] [address], [address] [place] [address] Food insecurity 03/15/2018 11/22/2020 Overview: Per [facility] Protocol documented as of this encounter (statuses as of 07/06/2024) Immunizations Name Administration Dates Next Due COVID-19 mRNA, LNP-s, No Pre serve, 2-Dose Series (Pfizer) 09/20/2020,08/30/2020 COVID-19, MRNA-LNP, PF, 30 M CG/0.3 mL, 12 YRS AND ABOVE, IM (PFIZER-Comirnaty) 07/22/2023 HEPATITIS B VACCINE, RECOMB, 20 MCG/ML, ADULT (HEPLISAV-B) 07/22/2023,06/18/2023 Pneumococcal Conjugate Vacci ne, 20-valent ([id number]) 08/24/2022 Seasonal Influenza Vac., MDV , IM, [...] encounter Miscellaneous Notes * Telephone Encounter - Lora Gallardo LPN - 07/06/2024 2:32 PM EST Faxed labs to [facility] per pt request for upcomming appt with Verna interiano. documented in this encounter Plan of Treatment Upcoming Encounters Date Type Department Care Team (Late st Contact Info) Description 07/27/2024 3:20 PM EST Office Visit Family Practice [facility] [address] [place] [address] Michelle Interiano CRNP [address] [place] [address] 08/28/2024 10:00 AM EST Imaging Radiology [facility] [facility] [address] [place] [address] 09/22/2024 1:50 PM EST Nutrition Services Nutrition & Weight Management, [facility] [address] [place] [address] Janet Astorga RDN [address] [place] [address] Scheduled Procedures Name Priority Associated Diagnoses Date/Ti [...] this encounter Medical Devices Implanted Type Area House Mover Helper Device Identifier Shelf Expiration Date Model / Serial / Lot Mesh 3dmax 3.1x5.3in t Med - [id number] Implanted:Qty: 1 on 07/18/2018 by Daniel Anderson MD at OR [facility] Right: Groin CR BARD : DAVOL 04/29/2023 [id number] / / [id number] documented as of this encounter Care Teams Head Girls Golf Coach Relationship Specialty Start Date End Date Joselyn, Angie Funmilayo, DO [address] [place] [address] PCP - General Family Medicine 11/08/23 documented as of this encounter
--- OUTSIDE RECORDS SUMMARY | 2024-09-01 23:54 | External Medical Summary | Summary of Care ---
Author Name Unknown Organization [facility] Address [address] [place] [address] Phone [phone] Care Team Providers Care Home Aid Name Role Phone Angie Alves DO Primary Care Provider [phone] Reason for Visit * Reason Comments Appointment The pt stated she "ernie cochran needs to lose weight." She said she did the "Juan fast." In the past and it worked well and helped her feel healthier. She stated she lost 30lbs doing this. She stated due to some changes in her the circumstances in her life dieting has become increasingly difficult. She stated she lost her transportation and she was struggling to afford healthy food sometimes. Waist: 39inNeck: 14in * Evaluate & Treat - Unlimited Visits (Within 10 days (routine)) - Closed Specialty Diagnoses / Procedures Referred By Contact Referred To Contact GI NUTRITION/IM / Gastroenterology Diagnoses Class 2 obesity with body mass index (BMI) of 36.0 to 36.9 in adult, unspecified obesity type, unspecified whether serious comorbidity present Angie Alves DO [address] [place] [address] Phone: tel:[phone] fax:[phone] Referral ID Status Reason Start Date Expiration Date V isits Requested Visits Authorized [id number] Closed Specialty Services Required 12/09/[phone] Encounter Details Date Type Department Care Team (Late st Contact Info) Description 06/20/2024 1:20 PM EST Office Visit Nutrition & Weight Management, [facility] [address] [place] [address] Michelle Muñoz PA-C [address] [place] [address] Class 2 severe obesity due to excess calories with serious comorbidity and body mass index (BMI) of 35.0 to 35.9 in adult (HCC)*; HTN, goal below 130/80; Osteoarthritis of spine with radiculopathy, cervical region Allergies Active Allergy Reactions Criticality Noted Date Comments Food (See Comments) Hives Medium 08/11/2013 Red beans per pt - Claritza Brand Red Dye #40 (Allura Red) Hives 11/02/2022 Emily patch sized welts-generalized areas documented as of this encounter (statuses as of 06/20/2024) Medications Hydrocortisone 2.5 % External OintmentIndicat ions:Dermatitis Apply to neck, shoulders nightly as needed 20 g 1 02/27/20 23 Active Albuterol Sulfate HFA 108 (90 Base) MCG/ACT Inhalation Aerosol Solution Inhale 2 Puffs by mouth every 6 hours as needed for Cough, Shortness of Breath or Wheezing. 06/11/20 23 Active BD Assure BPM/Manual Arm Cuff Use twice daily as needed. 06/11/20 23 Active Fluocinolone Acetonide Scalp 0.01 % External Oil ([place]-Smoothe/ FS) Apply to scalp every other night, as needed 06/11/20 23 Active Ketoconazole 2 % External Cream Apply to neck and chest once daily x 2-3 weeks as needed. 06/11/20 23 Active Acetaminophen ER 650 MG Oral Tablet Extended Release (Tylenol ER) Take 1 Tablet by mouth every 8 hours as needed for Pain, Severe. 06/11/20 23 Active Hair Skin and Nails Formula Oral Tablet Take 1 tablet daily. 06/11/20 23 Active hydroCHLOROthia zide 12.5 MG Oral CapsuleIndicati ons:HTN, goal below 130/80 Take 1 Capsule by mouth in the morning. 90 Capsule 3 11/08/19 24 Active Famotidine 20 MG Oral Tablet (Pepcid)Indicat ions:Gastroesop hageal reflux disease without esophagitis Take 1 Tablet by mouth in the morning. 90 Tablet 3 11/08/19 24 Active Omeprazole 20 MG Oral Capsule Delayed Release (PriLOSEC) Take 1 tablet daily as needed for heartburn. 90 Capsule 1 12/21/19 24 Active valACYclovir HCl 500 MG Oral Tablet (Valtrex)Indica tions:Recurrent genital herpes TAKE 1 TAB TWICE DAILY X3 DAYS FOR EPISODIC OUTBREAK OF GENITAL HERPES 30 Tablet 1 02/09/20 24 Active Benzonatate 100 MG Oral CapsuleIndicati ons:Upper respiratory tract infection, unspecified type Take 1 Capsule by mouth 3 times a day as needed for Cough. 30 Capsule 1 09/10/19 24 024 Discontinued documented as of this encounter (statuses as of 06/20/2024) Active Problems Problem Noted Date Diagnosed Date Major depressive disorder, recurrent episode, mo derate 11/08/2023 Viral upper respiratory tract infection 09/10/19 Assessment & Plan (09/12/2023 3:45 PM EST): [...] below 130/80 01/13/2018 Urticaria 08/23/2013 Overview (08/23/2013): Aug.07,7,2013. Esophageal reflux 12/13/2008 Irritable bowel syndrome 12/13/2008 documented as of this encounter (statuses as of 06/20/2024) Resolved Problems Problem Noted Date Diagnosed Date Resolved Date Food insecurity 03/10/2021 09/16/2022 Overview: Per [facility] Protocol Moderate episode of recurren t major depressive disorder 09/01/2019 12/03/2021 Difficult airway for intubation 07/18/2018 07/18/2018 Overview (07/18/2018): See the difficult airway letter, patient on cervical spine collar and need pediatric glides-cope MAC 2.5 for intubation Copy of letter: RE: MR# [id number] Dear Megan Amin, During your recent health care encounter at [facility], your treatment required breathing management through [...] or mechanical ventilation at the [facility], we would like you or your healthcare proxy to tell your physicians to check your previous records regarding airway management. If you need similar services at another institution, we would advise you to inform your treating physicians of this problem. If you would like to discuss this further, please do not hesitate to contact us by mail or phone at [phone]. We have included an order form for a medic alert bracelet if you choose to purchase one. Sincerely, Alyce Gomez MD Departments of Anesthesia and Critical Care Medicine [address] [place] [address], [address] [place] [address] Food insecurity 03/15/2018 11/22/2020 Overview: Per [facility] Protocol documented as of this encounter (statuses as of 06/20/2024) Immunizations Name Administration Dates Next Due COVID-19 mRNA, LNP-s, No Pre serve, 2-Dose Series (Pfizer) 09/20/2020,08/30/2020 COVID-19, MRNA-LNP, PF, 30 M CG/0.3 mL, 12 YRS AND ABOVE, IM (PFIZER-Comirnaty) 07/22/2023 HEPATITIS B VACCINE, RECOMB, 20 MCG/ML, ADULT (HEPLISAV-B) 07/22/2023,06/18/2023 Pneumococcal Conjugate Vacci ne, 20-valent ([id number]) 08/24/2022 Seasonal Influenza Vac., MDV , IM, 0.5 mL (Fluzone) 09/03/2014,07/11/2012 Seasonal Influenza, PF, 6 M & above, IM , (FluLaval or Fluzone) 06/18/2023,08/24/2022,05/29/2021,2019,06/02/2019 Seasonal Influenza, Quadriva lent, No Preserve, IM 08/05/2016 Seasonal Influenza, Quadriva lent, No Preserve, Mdck 04/18/2020 TD, Preservative Free 02/14/2020 TDAP, Age 7 [...] No 06/11/2023 Does the household have a [facility] of income? (Household - for [...] Sign Reading Time Taken Comments Blood Pressure 138/88 06/20/2024 1:26 PM EST Pulse 72 06/20/2024 1:26 PM EST Temperature 36.7 C (98.1 F) 06/20/2024 1:26 PM ES T Respiratory Rate - - Oxygen Saturation 98% 06/20/2024 1:26 PM EST Inhaled Oxygen Concentration - - Weight 89.2 kg (196 lb 11.2 oz) 06/20/2024 1:26 PM EST Height 158.8 cm (5' 2.5") 06/20/2024 1:26 PM EST Body Mass Index 35.4 06/20/2024 1:26 PM EST documented in this encounter Progress Notes * Michelle Muñoz PA-C - 06/20/2024 1:35 PM EST [facility] CONSULTATION INITIAL CONSULT Referring Physician: Angie Alves DO Nursing Notes: Caleb Caceres LPN 06/20/24 1334 Sign at exiting of workspace Chief Complaint Patient presents with Appointment The pt stated she "really needs to lose weight." She said she did the "Juan fast." In the past and it worked well and helped her feel healthier. She stated she lost 30lbs doing this. She stated dueto some changes in her the circumstances in her life dieting has become increasingly difficult. Shestated she lost her transportation and she was struggling to afford healthy food sometimes. Waist: 39in Neck: 14in Megan Amin is a 53 year old patient who [facility] for further recommendations. - Initial clinic visit 06/20/2024 Weight 196 lbs Height 62.5" Body mass index is 35.4 kg/m. Wt Readings from Last 6 Encounters: 06/20/24 89.2 kg (196 lb 11.2 oz) 12/09/23 91.6 kg (202 lb) 11/02/22 73.5 kg (162 lb) 08/24/22 87.5 kg (192 lb 12.8 oz) 06/30/22 88.3 kg (194 lb 9.6 oz) 06/09/22 86.2 kg (190 lb) HPI: Visit 06/20/24 The patient suffers from Class II obesity Previous Weight Management Interventions: The patient has tried weight loss in the past without significant group home success. Previous interventions: Self-directed. Struggling to afford healthier foods Did Juan Fast-- was expensive Does a lot of ride share Reports she cannot afford any healthy food Does get lion stein Needs to make sure her cats eat-- emotional support animals-- makes sure they have their treats Doesn't do frozen meals Current Diet: Describes typical diet history/24 hr recall Breakfast: oatmeal or skips Snacks: nuts/chips/candy (sometimes) Lunch: noodles, oatmeal or skips Snacks: nuts/chips/candy Dinner: noodles, oatmeal or none Snacks: Drinks: water, lemonade Restaurant meals: rare Past Medical History Glaucoma No Hypertension: Yes, on medications CAD: No Congestive heart failure No Dyslipidemia: No Lipid Panel Results: Results for orders placed or performed in visit on 09/03/14 LIPID PANEL Result Value Ref Range HOURS FASTING 14 hours Triglycerides 53 <200 mg/dL Cholesterol 198 <200 mg/dL HDL Cholesterol 76 >39 mg/dL Cholesterol-HDL Ratio 2.6 LDL Cholesterol 111 0 - 129 mg/dL Results for orders placed or performed in visit on 04/17/21 LIPID PANEL WITH DIRECT LDL IF TG IS HIGH Result Value Ref Range Triglycerides 91 <=174 mg/dL Cholesterol 190 <200 mg/dL HDL Cholesterol 54 >49 mg/dL Non-HDL Cholesterol 136 <=159 mg/dL LDL Cholesterol 118 <=129 mg/dL DVT/PE, clotting disorder: No Stroke: No Seizures: No Sleep Apnea: No Asthma: No COPD: No Patient denies personal or family history of medullary thyroid carcinoma. Patient denies personal or family history of multiple endocrine neoplasia syndrome type II Patient denies personal history of pancreatitis Fatty Liver: no Diabetes: Yes. No medication Hemoglobin A1C last 3 results: Lab Results Component Value Date/Time HEMOGLOBIN A1C - [facility] 6.3 (H) 08/24/2022 03:12 PM HEMOGLOBIN A1C - [facility] 6.1 (H) 04/17/2021 08:37 AM HEMOGLOBIN A1C - [facility] 6.3 (H) 02/14/2020 08:41 AM HEMOGLOBIN, [id number] 6.6 (H) 12/09/2023 12:00 AM Insulin Resistance: No PCOS: No GERD: Yes: Requiring medications: No History of nephrolithiasis: No. Osteoarthritis: Yes Anxiety/Depression: Yes Patient Active Problem List Diagnosis Esophageal reflux [...] Major depressive disorder, recurrent episode, moderate (HCC) Past Surgical History: Procedure Laterality Date ANESTHESIA, KNEE JOINT ARTHROSCOPY Right BREAST IMPLANTS EDU. 2006 saline, bilateral COLONOSCOPY, DIAGNOSTIC (RECTUM) 11/04/2022 normal, repeat 10 yrs / COLONOSCOPY FLEXIBLE PROXIMAL DIAGNOSTIC performed by Claudine Khan, DO [facility] EGD, FLEXIBLE, DIAGNOSTIC 06/12/2022 + H pylori / ESOPHAGOGASTRODUODENOSCOPY (EGD), FLEXIBLE, TRANSORAL, DIAGNOSTIC performed by Sabi Baldwin MD at [facility]OSCOPY [facility] ENLARGEMENT OF BREAST W/O IMPLANT placed Aug 2006 LAPAROSCOPY; REPAIR INITIAL INGUINAL HERNIA Right 07/18/2018 07/18/2018 LAPAROSCOPIC REPAIR INGUINAL HERNIA INITIAL performed by Daniel Anderson MD at OR [facility] LIGATE/CUT OVIDUCT(S) 1998 Tubal Ligation,Non Laparoscopic MAMMOGRAM SCREENING BILATERAL 08/05/2013 r normal, Left grouped calcifications Review of patient's allergies indicates: Allergen Reactions Food (See Comments) Hives Red beans per pt - Clothes Horse Brand Red Dye #40 (Allura Red) Hives Emily patch sized welts-generalized areas Current Outpatient Medications Medication Sig Dispense Refill Hydrocortisone 2.5 % External Ointment Apply to neck, shoulders nightly as needed 20 g 1 Albuterol Sulfate HFA 108 (90 Base) MCG/ACT Inhalation Aerosol Solution Inhale 2 Puffs by mouth every 6 hours as needed for Cough, Shortness of Breath or Wheezing. BD Assure BPM/Manual Arm Cuff Use twice daily as needed. Fluocinolone Acetonide Scalp 0.01 % External Oil ([place]-Smoothe/FS) Apply to scalp every other night, as needed Ketoconazole 2 % External Cream Apply to neck and chest once daily x 2-3 weeks as needed. Acetaminophen ER 650 MG Oral Tablet Extended Release (Tylenol ER) Take 1 Tablet by mouth every 8 hours as needed for Pain, Severe. COVID-19 mRNA Vaccine 12 years and above PsychSignal 30 MCG/0.3 ML IM SUSP Inject into a large muscle. 0.3 mL 0 hydroCHLOROthiazide 12.5 MG Oral Capsule Take 1 Capsule by mouth in the morning. 90 Capsule 3 Famotidine 20 MG Oral Tablet (Pepcid) Take 1 Tablet by mouth in the morning. 90 Tablet 3 Omeprazole 20 MG Oral Capsule Delayed Release (PriLOSEC) Take 1 tablet daily as needed for heartburn. 90 Capsule 1 valACYclovir HCl 500 MG Oral Tablet (Valtrex) TAKE 1 TAB TWICE DAILY X3 DAYS FOR EPISODIC OUTBREAK OF GENITAL HERPES 30 Tablet 1 Hair Skin and Nails Formula Oral Tablet Take 1 tablet daily. (Patient not taking: Reported on 06/20/2024) No current facility-administered medications for this visit. Family History Problem Relation Name Age of Onset No Past Hx Mother Stroke Mother Alcohol and Other Disorders Associated Father smoker Collagen disease Daughter RA, SLE, scleroderma No Past Hx Daughter No Past Hx Daughter Diabetes Grandmother (Paternal) Heart Disorder Grandmother (Maternal) OR Cancer None no breast, ovarian, uterine ca Breast Cancer No significant family history Social History Tobacco Use Smoking status: Never Smokeless tobacco: Never Tobacco comments: no passive smoke Vaping Use Vaping status: Never Used Substance Use Topics Alcohol use: No Drug use: No Review of Systems: Review of Systems Musculoskeletal: Positive for arthralgias, back pain and neck pain. Physical Examination: BP 138/88 | Pulse 72 | Temp 36.7 C (98.1 F) | Ht 1.588 m (5' 2.5") | Wt 89.2 kg (196 lb 11.2 oz) | SpO2 98% | BMI 35.40 kg/m | BSA 1.98 m Physical Exam Vitals and nursing note reviewed. Constitutional: Appearance: Normal appearance. HENT: Head: Normocephalic and atraumatic. Cardiovascular: Normal rate. Pulmonary: Effort: Pulmonary effort is normal. No respiratory distress. Neurological: Mental Status: Alert and oriented to person, place, and time. Psychiatric: Mood and Affect: Mood normal. Assessment and Recommendation: Abnormal weight gain Body mass index is 35.4 kg/m. Class II obesity. Discussed weight management options and would like to proceed with conservative and medication weight management. Barriers are consistency. Motivators are feeling better, avoiding/reducing comorbid conditions. Patient goals were discussed in detail at visit. GOALS -biggest issue is finding healthy foods on a budget and transportation to occupancy specialist food and her medications -she works on campus-- recommend picking up her medications at [facility] pharmacy -she has her cats food and litter delivered to her house by [employer]-- recommend she orders food for herself too. Order frozen or canned veggies, canned chicken. Look for [employer], meal deals -- many are offered at [employer] each week. Could get a free turkey this month -aim for 20g-30g protein at each meal + fruit or veggies-- okay to have frozen or canned fruit and veggies -a lot of perceived barriers-- significant time spent suggesting budget friendly options -try having baby carrots to snack on at work instead of candy or chips or cookies -follow up with RD -could consider medication in the future but need to work on better dietary intake first PLAN: Goals as above Megan was seen today for appointment. Diagnoses and all orders for this visit: Class 2 severe obesity due to excess calories with serious comorbidity and body mass index (BMI) of35.0 to 35.9 in adult (HCC) Goals as above HTN, goal below 130/80 Continue current regimen Osteoarthritis of spine with radiculopathy, cervical region Reports this limits activity-- may improve with weight loss I spent a total of 50 minutes on the date of service in preparation, delivery, and documentation ofthe care provided to Megan Amin excluding any time spent in the performance of separately billed services. More than 50% of my time spent with patient providing counseling about the benefits ofweight loss, about the patient's nutritional status, detailed explanations about calorie count, types of nutrients to choose, and composition of the meals. Reviewed and discussed weight, weight trends and pertinent labs and test results. Motivational interview provided in order to prepare the patient to achieve future goals. The patient agreed to try all the plan discussed and return in two months. Patient was instructed to message or call in the meantime with any further concerns or questions. Michelle Muñoz PA-C, [facility] Nutrition and Weight Management [facility] ([facility]) documented in this encounter Nursing Notes * Caleb Caceres LPN - 06/20/2024 1:34 PM EST Chief Complaint Patient presents with Appointment The pt stated she "really needs to lose weight." She said she did the "Juan fast." In the past and it worked well and helped her feel healthier. She stated she lost 30lbs doing this. She stated dueto some changes in her the circumstances in her life dieting has become increasingly difficult. Shestated she lost her transportation and she was struggling to afford healthy food sometimes. Waist: 39in Neck: 14in documented in this encounter Plan of Treatment Upcoming Encounters Date Type Department Care Team (Late st Contact Info) Description 07/27/2024 3:20 PM EST Office Visit Family Practice [facility] [address] [place] [address] Michelle Wright CRNP [address] [place] [address] 08/28/2024 10:00 AM EST Imaging Radiology [facility] [address] [place] [address] 09/22/2024 1:50 PM EST Nutrition Services Nutrition & Weight Management, [facility] [place] [address] Janet Astorga RDN [address] [place] [address] Scheduled Procedures Name Priority Associated Diagnoses Date/Ti me COLONOSCOPY FLEXIBLE PROXIMAL DIAGNOSTIC Recall Screen for colon cancer Scheduled Referrals Name Type Priority Associated Diagnoses Orde r Schedule GI NUTRITION REFERRAL OP Referral Within 10 days (routine) Class 2 obesity with body mass index (BMI) of 36.0 to 36.9 in adult, unspecified obesity type, unspecified whether serious comorbidity present Ordered: 12/09/2023 Health Maintenance Due Date Last Done Comments HPV/Co-Test 2002 Cologuard 2017 Fecal Occult Blood Test 2017 Sigmoidoscopy 2017 Depression Monitoring 10/20/2023 10/19/2022 COVID-19 Vaccine ( season) 2024 07/22/2023, 09/20/2020, 08/30/2020 Influenza Vaccine (FLU shot) (#1) 2024 06/18/2023, 08/24/2022, 05/29/2021, Additional history exists Cervical Cancer Screening 04/17/2024 Pap Smear 04/17/2024 [...] 01/05/2023, 08/24/2022 Hepatitis B Vaccine Completed 07/22/2023, HPV (Gardasil) Vaccine Aged Out No lo nger eligible based on patient's age to complete this topic MENINGOCOCCAL (MENACTRA/MENVEO) Aged Out No longer eligible based on patient's age to complete this topic documented as of this encounter Medical Devices Implanted Type Area Civil Design Technician Device Identifier Shelf Expiration Date Model / Serial / Lot Mesh 3dmax 3.1x5.3in t Med - [id number] Implanted:Qty: 1 on 07/18/2018 by Daniel Anderson MD at [facility] Right: Groin CR BARD : DAVOL 04/29/2023 [id number] / / [id number] documented as of this encounter Visit Diagnoses Diagnosis Viral upper respiratory tract infection- Primary Acute upper respiratory infections of unspecified site Upper respiratory tract infection, unspecified type Class 2 severe obesity due to excess calories with serious comorbidity and body mass index (BMI) of 35.0 to 35.9 in adult (HCC)- Primary HTN, goal below 130/80 Unspecified essential hypertension Osteoarthritis of spine with radiculopathy, cervical region documented in this encounter Care Teams Home Aid Relationship Specialty Start Date End Date Angie Alves DO [address] [place] [address] PCP - General Family Medicine 11/08/23 documented as of this encounter
[2024-09-02] MEDS: ENALAPRILAT 1.25 MG in DEXTROSE 5% 25 ML IV STA (00:21)
--- NOTE | 2024-09-02 01:46 | History & Physical Report ---
Date of Service September 02, 2024 Assessment & Plan (1) Cervical radiculopathy: Plan: 52-year-old female with past med history significant for hypertension, GERD, irritable bowel syndrome, history of tinnitus of both ears, history of anemia, history of depression, history of diabetes presents with severe neck pain radiating to the left arm and also found to have elevated blood pressure. Patient was moving things in her office when she developed sharp pain in the left cervical neck and left arm seems on 08/15/2024. She went to urgent care and also saw orthopedics on 08/18/2024. She says she was prescribed meloxicam, prednisone, tizanidine and also had MRI scan per Ortho recommendations. MRI scan showed multilevel degenerative changes of cervical spine most advanced at C5/C6 and C6/C7 levels. There is plan to follow-up with spine surgery. Above pain medication regimen did not help.. The pain was getting worse. She finished prednisone course last Wednesday. She is still taking meloxicam. Finished tizanidine. The pain was getting worse so she came to the ER today. Any movement of the left upper extremity making her pain to get worse. Even while ambulating any movement of the left upper body making the pain worse. Today in the ER she had some chest discomfort when she had a dye for CAT scan and felt short of breath and pain but those symptoms subsided now. She also found to have blood pressure running high requiring IV antihypertensives. Currently pain seems to control with pain medication. Currently no headache. Vision is okay. No runny nose or sore throat. No cough. No earaches. Appetite is okay. Currently no nausea. No abdominal pain. Somewhat constipated. Micturating okay. When she took prednisone she had some urinary incontinence and loss of taste but that all resolved after stopping prednisone. Cervical radiculopathy Pain in the left side of the neck radiating to the left arm Painful left arm movements Recently had a prednisone taper, also was on tizanidine and meloxicam but the pain is not getting better. Says has appointment with the spine surgery next week MRI done on 08/21/2024 shows:IMPRESSION "Multilevel degenerative changes of the cervical spine, most advanced at C5-C6 and C6-C7, as detailed. Spinal canal narrowing is most severe at C6-C7, and of a slightly lesser degree at C5-C6. 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 Varying degrees of bilateral neuroforaminal narrowing including severe narrowing at C5- C6 and C6-C7. High-grade left neuroforaminal narrowing at C7-T1 has slightly increased, potentially contributing to symptoms." Pain control with IV Dilaudid., Lidocaine patch Pain management consult in a.m. Hypertensive urgency Patient on hydrochlorothiazide at home which will continued Possible from pain and also recent steroid use IV labetalol as needed Will follow echo Telemetry Cardiac consult in a.m. Irritable bowel syndrome GERD Continue omeprazole and famotidine History of diabetes Currently not on medications Will follow HbA1c levels ISS close monitor DVT prophylaxis Lovenox Disposition Telemetry Full code. History of Present Illness Chief Complaint: Severe neck pain and hypertensive urgency Primary Care Provider: MEJIA PCP 52-year-old female with past med history significant for hypertension, GERD, irritable bowel syndrome, history of tinnitus of both ears, history of anemia, history of depression, history of diabetes presents with severe neck pain radiating to the left arm and also found to have elevated blood pressure. Patient was moving things in her office when she developed sharp pain in the left cervical neck and left arm seems on 08/15/2024. She went to urgent care and also saw orthopedics on 08/18/2024. She says she was prescribed meloxicam, prednisone, tizanidine and also had MRI scan per Ortho recommendations. MRI scan showed multilevel degenerative changes of cervical spine most advanced at C5/C6 and C6/C7 levels. There is plan to follow-up with spine surgery. Above pain medication regimen did not help.. The pain was getting worse. She finished prednisone course last Wednesday. She is still taking meloxicam. Finished tizanidine. The pain was getting worse so she came to the ER today. Any movement of the left upper extremity making her pain to get worse. Even while ambulating any movement of the left upper body making the pain worse. Today in the ER she had some chest discomfort when she had a dye for CAT scan and felt short of breath and pain but those symptoms subsided now. She also found to have blood pressure running high requiring IV antihypertensives. Currently pain seems to control with pain medication. Currently no headache. Vision is okay. No runny nose or sore throat. No cough. No earaches. Appetite is okay. Currently no nausea. No abdominal pain. Somewhat constipated. Micturating okay. When she took prednisone she had some urinary incontinence and loss of taste but that all resolved after stopping prednisone. Past medical history. As mentioned above Past surgical history. Right knee arthroscopy. Breast implants. Colonoscopy and EGD. Laparoscopic right inguinal hernia repair. Ligation of oviducts. Social history. No smoking. No alcohol use. No drug use. Family history. Father had alcoholism. Daughter had collagen disease. SLE,, scleroderma, RA. Paternal grandmother had diabetes. Maternal grand mother had MT. Allergies Allergy/AdvReac Type Severity Reaction Status Date / Time red dye Allergy Severe welts/hives Unverified 11/11/20 20:56 all over body Home Medications Medication Instructions Recorded Confirmed Type famotidine 20 mg tablet 20 mg PO DAILY 09/02/24 09/02/24 History hydrochlorothiazide 12.5 mg capsule 12.5 mg PO DAILY 09/02/24 09/02/24 History meloxicam 15 mg tablet 15 mg PO DAILY 09/02/24 09/02/24 History omeprazole 20 mg capsule,delayed 20 mg PO DAILY 09/02/24 09/02/24 History release valacyclovir 500 mg tablet 500 mg PO UD 09/02/24 09/02/24 History Past Med/Surg History Problem List (Updated 09/02/24 @ 01:28 by Arabella Fuentes PA-C) Uncontrolled pain (Acute) Hypertension (Acute) Chest pain (Acute) Cervical radiculopathy (Acute) No pertinent past medical history Calf pain (Acute) Medical History H/O: HTN (hypertension) Surgical History No pertinent past surgical history Social History Smoking Status: Never smoker Hx Alcohol Use: No Hx Substance Use: No Preferred Language: Lithuanian Communication Ability: Effective 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 ENT- oropharynx clear Neck- supple, no JVD. Lungs- clear to auscultation no wheezing or crackles Heart- regular rate and rhythm; no murmur, no gallop. Abdomen- normal bowel sounds, soft, nontender, no distension Extremities- no pretibial edema, no erythema seen. Painful left upper extremity movements Neuro- alert, oriented PERRL, no facial palsy; no dysarthria; obeys commands Results & Data Results & Data Vital Signs (Past 12 Hours) Vital Signs Temp Pulse Resp BP Pulse Ox O2 Del Method 09/02/24 00:30 99 H 15 95 09/02/24 00:30 155/92 H 09/02/24 00:20 177/120 H 09/02/24 00:20 177/120 H 09/02/24 00:20 177/120 H 09/02/24 00:18 99 H 16 96 09/02/24 00:06 98 H 17 96 09/02/24 00:00 161/106 H 09/02/24 00:00 161/106 H 09/01/24 23:54 99 H 17 95 09/01/24 23:36 98 H 15 198/111 H 96 09/01/24 23:00 161/105 H 09/01/24 23:00 161/105 H 09/01/24 23:00 95 H 161/105 H 96 09/01/24 23:00 161/105 H 09/01/24 23:00 161/105 H 09/01/24 23:00 105 H 20 94 09/01/24 22:36 107 H 16 94 09/01/24 22:21 106 H 15 94 09/01/24 22:00 104 H 18 95 09/01/24 22:00 190/116 H 09/01/24 21:49 106 H 18 205/129 H 95 09/01/24 20:28 79 16 159/101 H 96 09/01/24 19:00 95 H 18 190/120 H 97 09/01/24 17:00 107 H 14 175/110 H 98 Room Air 09/01/24 16:34 90 09/01/24 16:30 91 H 23 193/110 H 99 01/31/25 16:11 98 H 18 98 Room Air 09/01/24 13:53 36.6 C 101 H 17 180/128 H 98 Room Air Diagnostic Findings Laboratory Results WBC 6.76 K/ul (4.8-10.8) 09/01/24 16:25 RBC 4.17 M/uL (4.20-5.40) L 09/01/24 16:25 Hgb 12.5 g/dl (12.0-16.0) 09/01/24 16:25 Hct 37.7 % (37.0-47.0) 09/01/24 16: MCV 90.4 fL (80.0-100.0) 09/01/24 16: MCH 30.0 pg (25.0-34.0) 09/01/24 16: MCHC 33.2 g/dL (32.0-36.0) 09/01/24 16: RDW Std Deviation 42.9 fL (36.4-46.3) 09/01/24: RDW Coeff of Alfie 13.0 % (11.5-14.5) 09/01/24 16: Plt Count 252 K/uL (130-400) 09/01/24 16: MPV 9.9 fL (9.4-12.4) 09/01/24 16:25 Immature Gran % (Auto) 0.3 % 09/01/24 16:25 Neut % (Auto) 61.7 % 09/01/24 16:25 Lymph % (Auto) 31.2 % 09/01/24 16:25 Tillman % (Auto) 5.8 % 09/01/24 16:25 Eos % (Auto) 0.7 % 09/01/24 16:25 Baso % (Auto) 0.3 % 09/01/24 16: Neut # (Auto) 4.17 K/uL (1.40-6.50) 09/01/24 16:25 Lymph # (Auto) 2.11 K/uL (1.20-3.40) 09/01/24 16:25 Tillman # (Auto) 0.39 K/uL (0.11-0.59) 09/01/24 16:25 Eos # (Auto) 0.05 K/uL (0.00-0.50) 09/01/24 16:25 Baso # (Auto) 0.02 K/uL (0.00-0.20) 09/01/24 16:25 Immature Gran # (Auto) 0.02 K/uL (0.01-0.20) 09/01/24 16:25 PT 10.3 Seconds (9.0-12.0) 09/01/24 16:25 INR 0.9 (0.9-1.1) 09/01/24 16:25 APTT 24 Seconds (21-31) 09/01/24 16:25 PTT Ratio 0.9 09/01/24 16:25 Sodium 139 mmol/L (136-145) 09/01/24 16:25 Potassium 3.6 mmol/L (3.5-5.1) 09/01/24 16:25 Chloride 101 mmol/L (98-107) 09/01/24 16:25 Carbon Dioxide 31 mmol/L (21-32) 09/01/24 16:25 Anion Gap 7 (3-11) 09/01/24 16:25 BUN 12 mg/dl (6-23) 09/01/24 16:25 Creatinine 0.69 mg/dl (0.6-1.2) 09/01/24 16:25 Est Cr Clr Drug Dosing Not Reportable 09/01/24 16:25 eGFR 104.36 09/01/24 16:25 BUN/Creatinine Ratio 17.4 (10-20) 09/01/24 16:25 Glucose 107 mg/dl (70-99(Fasting)) H 09/01/24 16:25 Calcium 9.3 mg/dl (8.6-10.3) 09/01/24 16:25 Total Bilirubin 0.6 mg/dl (0.2-1.0) 09/01/24 16:25 AST 25 U/L (13-39) 09/01/24 16:25 ALT 45 U/L (7-52) 09/01/24 16:25 Alkaline Phosphatase 80 U/L (34-104) 09/01/24 16:25 Troponin I High Sens 8.7 pg/ml (0-14) 09/01/24 16:25 Total Protein 8.2 gm/dl (6.0-8.3) 09/01/24 16:25 Albumin 4.4 gm/dl (3.4-5.0) 09/01/24 16:25 Globulin 3.8 gm/dl (2.5-4.0) 09/01/24 16:25 Albumin/Globulin Ratio 1.2 (0.9-2) 09/01/24 16:25 Lipase 16 U/L (11-82) 09/01/24 16:25 Impressions Chest CTA 09/01/24 16:11 EXAM: CT Angiography Chest With Intravenous Contrast INDICATION: Chest pain. TECHNIQUE: Axial computed tomographic angiography images of the chest with intravenous contrast. Sagittal and coronal reformatted images were created and reviewed. This CT exam was performed using one or more of the following dose reduction techniques: automated exposure control, adjustment of the mA and/or kV according to patient size, and/or use of iterative reconstruction technique. MIP reconstructed images were created and reviewed. 116 cc Optiray 320 utilized intravenously. COMPARISON: No relevant prior studies available. FINDINGS: Pulmonary arteries: No abnormality noted. No pulmonary embolism. Aorta: No acute change noted. No thoracic aortic aneurysm or dissection. Lungs and pleural spaces: There is mild dependent atelectasis in the left lower lobe. No consolidation or pulmonary edema. No pleural effusion or pneumothorax. Heart: Cardiomegaly. Left ventricular hypertrophic change noted. The right ventricle is asymmetrically dilated slightly. No pericardial effusion. Bones/joints: Mild degenerative changes noted throughout the spine. No acute osseous abnormality. Soft tissues: Visualized bilateral breast prostheses intact. Lymph nodes: No abnormality noted. No enlarged lymph nodes. IMPRESSION: 1. Cardiomegaly with evidence of right heart dysfunction. 2. No angiographic abnormality in the chest. ACT 112: Negative or not required by law. Electronically signed by Fe Chen 09-01-2024 6:58 PM Humerus X-Ray 09/01/24 16:11 EXAM: Radiographs of the Left Humerus 2 Views INDICATION: Pain. TECHNIQUE: Frontal and lateral views of the left humerus. COMPARISON: No relevant prior studies available. FINDINGS: Limitations: None. Bones/joints: No fracture, erosion or dislocation. Soft tissues: No abnormality noted. No radiopaque foreign body noted. IMPRESSION: No abnormality noted. ACT 112: Negative or not required by law. Electronically signed by Fe Chen 09-01-2024 6:13 PM ECG Additional Comments: ECG. Normal sinus rhythm with sinus arrhythmia rate of 92. No significant change was found. QTc 432. Code Status & VTE Plan VTE Prophylaxis Plan VTE Prophylaxis will be ordered: Yes
[2024-09-02] MEDS ORDERED: NITROGLYCERIN SL 0.4 MG/TAB TAB SL PRN (02:39)
[2024-09-02] MEDS ORDERED: LABETALOL HCL IV 5 MG/ML 20ML IV PRN (02:39)
[2024-09-02 05:42] LABS: BUN Creatinine Ratio 18.1 (10-20); Calcium 8.9 mg/dl (8.6-10.3); Magnesium 1.8 mg/dl (1.7-2.4)
[2024-09-02 05:44] LABS: Basophils # (auto) 0.01 K/uL (0.00-0.20); Basophils % (auto) 0.1 %; Hematocrit (blood only) 37.3 % (37.0-47.0); Hemoglobin 12.2 g/dl (12.0-16.0); Immature Granulocytes # (auto) 0.02 K/uL (0.01-0.20); Immature Granulocytes % (auto) 0.3 %; Mean Corpuscular Hemoglobin 29.3 pg (25.0-34.0); Mean Corpuscular Hgb Conc 32.7 g/dL (32.0-36.0); Mean Corpuscular Volume 89.7 fL (80.0-100.0); Mean Platelet Volume 9.9 fL (9.4-12.4); Monocytes # (auto) 0.05 K/uL (0.11-0.59); Monocytes % (auto) 0.6 %; Neutrophils # (auto) 6.96 K/uL (1.40-6.50); Platelet Count 264 K/uL (130-400); RDW Standard Deviation 42.9 fL (36.4-46.3); Red Blood Count 4.16 M/uL (4.20-5.40); White Blood Count 7.74 K/ul (4.8-10.8)
[2024-09-02 05:51] LABS: Troponin I High Sensitivity 4.2 pg/ml (0-14)
--- NOTE | 2024-09-02 07:18 | Electrocardiogram Report ---
Test Reason : Blood Pressure : */* mmHG Vent. Rate : 92 BPM Atrial Rate : 92 BPM P-R Int : 142 ms QRS Dur : 90 ms QT Int : 350 ms P-R-T Axes : 40 10 22 degrees QTcB Int : 432 ms Normal sinus rhythm with sinus arrhythmia Normal ECG When compared with ECG of 02-Jul-2023 01:37, No significant change was found Confirmed by Arjun Estrada ([id number]) on 09/02/2024 7:18:11 AM Referred By: REFERRED SELF Confirmed By: Arjun Estrada
--- OUTSIDE RECORDS SUMMARY | 2024-09-02 07:45 | External Medical Summary | Summary of Care ---
Author Name Unknown Organization [facility] Address [address] [place] [address] Phone [phone] Care Team Providers Care Director Of Institutional Giving Name Role Phone Angie Alves DO Primary Care Provider [phone] Reason for Visit * Reason Onset Date Comments Advice 08/30/2024 Back,shoulder pa in Medication Refill 08/30/2024 Med Request 08/30/2024 Encounter Details Date Type Department Care Team (Late st Contact Info) Description 08/30/2024 Telephone Family Practice [facility] [address] [place] [address] [facility]ves [facility] [address] [facility] [address] Advice (Back,shoulder pain); Medication Re... Allergies Active Allergy Reactions Criticality Noted Date Comments Food (See Comments) Hives Medium 08/11/2013 Red beans per pt - Claritza Brand Red Dye #40 (Allura Red) Hives 11/02/2022 [place] patch sized welts-generalized areas documented as of [...] Fluocinolone Acetonide Scalp 0.01 % External Oil ([place]-Smoothe/F S) Apply to scalp every other night, [...] for intubation Copy of letter: RE: MR# [id number] Dear Megan Amin, During your recent health [...] contact us by mail or phone at [phone]. We have included an order form for a medic alert bracelet if you choose to purchase one. Sincerely, Alyce Gomez MD Departments of Anesthesia and Critical Care Medicine [address] [place] [address], [address] [place] [address] Food insecurity 03/15/2018 11/22/2020 Overview: Per [facility] Protocol documented as of this encounter (statuses as of 09/01/2024) Immunizations Name Administration Dates Next Due COVID-19 mRNA, LNP-s, No Pre serve, 2-Dose Series (UXArmy) 09/20/2020,08/30/2020 COVID-19, MRNA-LNP, PF, 30 M CG/0.3 mL, 12 YRS AND ABOVE, IM (PFIZER-Comirnaty) 07/22/2023 HEPATITIS B VACCINE, RECOMB, 20 MCG/ML, ADULT (HEPLISAV-B) 07/22/2023,06/18/2023 Pneumococcal Conjugate Vacci ne, 20-valent (Clcahro05) 08/24/2022 Seasonal Influenza Vac., MDV , IM, [...] No 06/11/2023 Does the household have a [facility] source of income? (Household - for [...] Telephone Encounter - Latesha Cervantes LPN - 09/01/2024 1:49 PM EST Pt has an appointment on 09/05/24 with Interventional Pain * Telephone Encounter - Carolina Moselye OSA - 09/01/2024 9:59 AM EST Relayed [...] any call back. Please call her at [phone] to discuss medications with her. She is [...] Please review. Thank you, Zakiya Sheffield CPhT Integrated Pest Management Technician II [facility] 08/31/2024,9:46 [...] provider did you see for this problem? Kaery Montoya at [facility] 3. What medications are you presently [...] Care Team (Late st Contact Info) Description 09/05/2024 12:30 PM EST Office Visit Interventional Pain Center [facility] [address] [place] [phone] Darleen Francis PA-C [address] [place] [address] 09/22/2024 1:50 PM EST Nutrition Services Nutrition & Weight Management, [facility] [address] [place] [address] Janet Astorga RDN [address] [place] [address] 09/28/2024 4:00 PM EST Office Visit Family Practice [facility] [address] [place] [address] Michelle Wright CRNP [address] [place] [address] 09/29/2024 11:00 AM EST Office Visit Orthopaedics Spine Surgery [facility] [address] [place] [phone] Ortiz Jones MD [address] [place] [address] Scheduled Procedures Name Priority Associated Diagnoses Date/Ti [...] this encounter Medical Devices Implanted Type Area Road Supervisor Of Engines Device Identifier Shelf Expiration Date Model / Serial / Lot Mesh 3dmax 3.1x5.3in t Med - [id number] Implanted:Qty: 1 on 07/18/2018 by Daniel Anderson MD at OR [facility] Right: Groin CR BARD : DAVOL 04/29/2023 [id number] / / [id number] documented as of this encounter Care Teams Director Of Institutional Giving Relationship Specialty Start Date End Date Angie Alves DO [address] [place] [address] PCP - General Family Medicine 11/08/23 documented as of this encounter
[2024-09-02] MEDS ORDERED: DEXTROSE 50% 50 ML SYRINGE IV PRN (07:52)
[2024-09-02] MEDS ORDERED: GLUCOSE 40% GEL 15 GM TUBE PO PRN (07:52)
[2024-09-02] MEDS ORDERED: GLUCOSE 10 TAB/TUBE PO PRN (07:52)
[2024-09-02] MEDS ORDERED: CARBOHYDRATES FOR HYPOGLYCEMIA PO PRN (07:52)
[2024-09-02] MEDS ORDERED: GLUCAGON FOR INJ 1 MG VIAL SQ PRN (07:52)
--- NOTE | 2024-09-02 08:11 | Cardiology Consultation ---
Date of Consultation September 02, 2024 History of Present Illness Reason for Consultation: HTN urgency Requesting Physician: Manny cabrera Attending Physician: Flash Soto MD History of Present Illness HPI: Patient is a 52 year old female with PMHx significant for HTN, DM, GERD, IBS, tinnitus, anemia and depression that presented to the ER with significant left sided cervical neck and arm pain. Patient was seen by urgent care on 08/15/24, and then by ortho on 08/18/24. She was prescribed meloxican, prednisone, tizanidine and also had an MRI. MRI scan showed multilevel degenerative changes of cervical spine most advanced at C5/C6 and C6/C7 levels. There is plan to follow-up with spine surgery. Patient had finished her Prednsione and Tizanidine. She reports the pain just became too bad and she presented to the ER. EKG NSR with no acute ST-T wave changes. Rate 92bpm Allergies Allergy/AdvReac Type Severity Reaction Status Date / Time red dye Allergy Severe welts/hives Unverified 11/11/20 20:56 all over body Home Medications Medication Instructions Recorded Confirmed Type famotidine 20 mg tablet 20 mg PO DAILY 09/02/24 09/02/24 History hydrochlorothiazide 12.5 mg capsule 12.5 mg PO DAILY 09/02/24 09/02/24 History meloxicam 15 mg tablet 15 mg PO DAILY 09/02/24 09/02/24 History omeprazole 20 mg capsule,delayed 20 mg PO DAILY 09/02/24 09/02/24 History release valacyclovir 500 mg tablet 500 mg PO UD 09/02/24 09/02/24 History Patient History Medical History H/O: HTN (hypertension) Surgical History No pertinent past surgical history Social History Smoking Status: Never smoker Hx Alcohol Use: No Hx Substance Use: No Preferred Language: Iraqi Communication Ability: Effective Biostatistician Required: No Beliefs That Will Affect Care: None Current Living Situation: Family Other Information That Helps Us Care for You: No Feels Safe at Home: Yes Safety Concerns: Feels Safe At This Time Results & Data Vital Signs (Past 12 Hours) Vital Signs Pulse Pulse Resp BP BP Pulse Ox Pulse Ox 09/02/24 07:08 103 H 09/02/24 05:00 104 H 18 143/104 H 99 09/02/24 03:44 105 H 18 119/98 97 09/02/24 03:00 107 H 124/88 09/02/24 03:00 96 09/02/24 03:00 104 H 18 124/88 96 09/02/24 01:30 101 H 15 94 09/02/24 01:30 141/95 H 09/02/24 01:30 141/95 H 09/02/24 01:30 141/95 H 09/02/24 01:16 152/111 H 09/02/24 01:16 152/111 H 09/02/24 01:15 106 H 16 94 09/02/24 01:03 108 H 22 96 09/02/24 01:00 165/114 H 09/02/24 01:00 165/114 H 09/02/24 00:48 98 H 16 95 09/02/24 00:45 152/103 H 09/02/24 00:45 152/103 H 09/02/24 00:30 99 H 15 95 09/02/24 00:30 155/92 H 09/02/24 00:20 177/120 H 09/02/24 00:20 177/120 H 09/02/24 00:20 177/120 H 09/02/24 00:18 99 H 16 96 09/02/24 00:06 98 H 17 96 09/02/24 00:00 161/106 H 09/02/24 00:00 161/106 H 09/01/24 23:54 99 H 17 95 09/01/24 23:36 98 H 15 198/111 H 96 09/01/24 23:00 161/105 H 09/01/24 23:00 161/105 H 09/01/24 23:00 95 H 161/105 H 96 09/01/24 23:00 161/105 H 09/01/24 23:00 161/105 H 09/01/24 23:00 105 H 20 94 09/01/24 22:36 107 H 16 94 09/01/24 22:21 106 H 15 94 09/01/24 22:00 104 H 18 95 09/01/24 22:00 190/116 H 09/01/24 21:49 106 H 18 205/129 H 95 09/01/24 20:28 79 16 159/101 H 96 O2 Del Method O2 Del Method 09/02/24 07:08 09/02/24 05:00 Room Air 09/02/24 03:44 Room Air 09/02/24 03:00 09/02/24 03:00 Room Air 09/02/24 03:00 Room Air 09/02/24 01:30 09/02/24 01:30 09/02/24 01:30 09/02/24 01:30 09/02/24 01:16 09/02/24 01:16 09/02/24 01:15 09/02/24 01:03 09/02/24 01:00 09/02/24 01:00 09/02/24 00:48 09/02/24 00:45 09/02/24 00:45 09/02/24 00:30 09/02/24 00:30 09/02/24 00:20 09/02/24 00:20 09/02/24 00:20 09/02/24 00:18 09/02/24 00:06 09/02/24 00:00 09/02/24 00:00 09/01/24 23:54 09/01/24 23:36 09/01/24 23:00 09/01/24 23:00 09/01/24 23:00 09/01/24 23:00 09/01/24 23:00 09/01/24 23:00 09/01/24 22:36 09/01/24 22:21 09/01/24 22:00 09/01/24 22:00 09/01/24 21:49 09/01/24 20:28
[2024-09-02] MEDS: FAMOTIDINE 20 MG TAB PO SCH (08:57)
[2024-09-02] MEDS: ENOXAPARIN INJ 40 MG/0.4 ML SYR SQ SCH (08:57)
[2024-09-02] MEDS: hydroCHLOROthiazide 25 MG TAB PO SCH (08:57)
[2024-09-02] MEDS: PANTOprazole 40 MG TAB PO SCH (08:58)
[2024-09-02] MEDS: LIDOCAINE 5% 1 PATCH TD SCH (08:59)
[2024-09-02] MEDS: HYDROmorphone INJ 0.5 MG/0.5 ML SYR IV PRN (09:37)
[2024-09-02] MEDS: ACETAMINOPHEN 325 MG TAB PO PRN (13:29)
[2024-09-02] MEDS: INSULIN ASPART PER UNIT CHARGE SC SCH (13:57)
[2024-09-02] MEDS: HYDROmorphone INJ 0.5 MG/0.5 ML SYR IV STA (19:10)
[2024-09-03] MEDS: KETOROLAC TROMETHAMINE 15 MG/ML VIAL IV ONE ×3 (01:32→15:23)
[2024-09-03] MEDS: HYDROmorphone INJ 0.5 MG/0.5 ML SYR IV STA ×2 (01:32→06:05)
[2024-09-03 06:36] LABS: Mean Corpuscular Hemoglobin 30.1 pg (25.0-34.0); Mean Corpuscular Hgb Conc 33.3 g/dL (32.0-36.0); Mean Corpuscular Volume 90.2 fL (80.0-100.0); Mean Platelet Volume 10.1 fL (9.4-12.4); Platelet Count 258 K/uL (130-400); RDW Standard Deviation 42.8 fL (36.4-46.3); Red Blood Count 3.99 M/uL (4.20-5.40); White Blood Count 12.01 K/ul (4.8-10.8)
[2024-09-03 07:01] LABS: BUN Creatinine Ratio 27.7 (10-20); Calcium 9.5 mg/dl (8.6-10.3); Phosphorus 3.6 mg/dl (2.5-4.9)
[2024-09-03] MEDS: PROMETHAZINE 6.25 MG/50.25 ML BAG IV ONE (07:45)
--- NOTE | 2024-09-03 10:57 | Hospitalist Progress Note ---
Date of Service September 03, 2024 Assessment & Plan (1) Cervical radiculopathy: Plan: 52 yo Fwith past med history significant for hypertension, GERD, irritable bowel syndrome, history of tinnitus of both ears, history of anemia, history of depression, history of diabetes presents with severe neck pain radiating to the left arm and also found to have elevated blood pressure. Patient was moving things in her office when she developed sharp pain in the left cervical neck and left arm seems on 08/15/2024. She went to urgent care and also saw orthopedics on 08/18/2024. She says she was prescribed meloxicam, prednisone, tizanidine and also had MRI scan per Ortho recommendations. MRI scan showed multilevel degenerative changes of cervical spine most advanced at C5/C6 and C6/C7 levels. There is plan to follow-up with spine surgery. Above pain medication regimen did not help.. The pain was getting worse. She finished prednisone course last Wednesday. She is still taking meloxicam. Finished tizanidine. The pain was getting worse so she came to the ER today. Any movement of the left upper extremity making her pain to get worse. Even while ambulating any movement of the left upper body making the pain worse. Today in the ER she had some chest discomfort when she had a dye for CAT scan and felt short of breath and pain but those symptoms subsided now. She also found to have blood pressure running high requiring IV antihypertensives. Currently pain seems to control with pain medication. Currently no headache. Vision is okay. No runny nose or sore throat. No cough. No earaches. Appetite is okay. Currently no nausea. No abdominal pain. Somewhat constipated. Micturating okay. When she took prednisone she had some urinary incontinence and loss of taste but that all resolved after stopping prednisone. Cervical radiculopathy Pain in the left side of the neck radiating to the left arm Painful left arm movements Recently had a prednisone taper, also was on tizanidine and meloxicam but the pain is not getting better. Says has appointment with the spine surgery next week MRI done on 08/21/2024 shows:IMPRESSION "Multilevel degenerative changes of the cervical spine, most advanced at C5-C6 and C6-C7, as detailed. Spinal canal narrowing is most severe at C6-C7, and of a slightly lesser degree at C5-C6. 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 Varying degrees of bilateral neuroforaminal narrowing including severe narrowing at C5- C6 and C6-C7. High-grade left neuroforaminal narrowing at C7-T1 has slightly increased, potentially contributing to symptoms." Pain control with IV Dilaudid., Lidocaine patch Added Toradol, Decadron Pain management consulted -pending Hypertensive urgency Patient on hydrochlorothiazide at home which will continued Possible from pain and also recent steroid use IV labetalol as needed echo obtained Telemetry BP now improved Irritable bowel syndrome GERD Continue omeprazole and famotidine Diabetes Currently not on medications Will follow HbA1c levels ISS close monitor DVT prophylaxis - Lovenox Disposition - Telemetry Full code. Admission and Anticipated Discharge Date Admission Date: September 02, 2024 Subjective Pt seen in follow up of pain 2/2 cervical radiculopathy Pt sitting up in bed in NAD, still complains of LUE pain no fever, chills, chest pain, shortness of breath pain management consulted Review of Systems Review of Systems: All systems reviewed & are unremarkable except as noted in Subjective Physical Exam Physical Exam: General- Not in distress Head- atraumatic Eyes- PERRL. Neck- supple, no JVD. Lungs- clear to auscultation, no wheezing or crackles Heart- regular rate and rhythm; no murmur, no gallop. Abdomen- normal bowel sounds, soft, nontender, no distension Extremities- no pretibial edema, no erythema seen. Painful left upper extremity movements Neuro- alert, oriented PERRL, no facial palsy; no dysarthria; obeys commands Results & Data Results & Data Vital Signs (Past 12 Hours) Vital Signs Temp Pulse Pulse Resp BP Pulse Ox O2 Del Method 09/03/24 07:56 111 H 09/03/24 07:35 36.6 C 98 H 18 165/97 H 94 Room Air 09/03/24 03:23 36.9 C 98 H 16 115/63 97 Room Air Laboratory Results 09/03/24 09/03/24 09/02/24 Range/Units 07:38 05:54 20:08 WBC 12.01 H (4.8-10.8) K/ul RBC 3.99 L (4.20-5.40) M/uL Hgb 12.0 (12.0-16.0) g/dl Hct 36.0 L (37.0-47.0) % MCV 90.2 (80.0-100.0) fL MCH 30.1 (25.0-34.0) pg MCHC 33.3 (32.0-36.0) g/dL RDW Std Deviation 42.8 (36.4-46.3) fL RDW Coeff of Alfie 13.0 (11.5-14.5) % Plt Count 258 (130-400) K/uL MPV 10.1 (9.4-12.4) fL Sodium 135 L (136-145) mmol/L Potassium 4.0 (3.5-5.1) mmol/L Chloride 98 (98-107) mmol/L Carbon Dioxide 29 (21-32) mmol/L Anion Gap 8 (3-11) BUN 23 (6-23) mg/dl Creatinine 0.83 (0.6-1.2) mg/dl Est Cr Clr Drug Dosing 82.0 ml/min eGFR 84.77 BUN/Creatinine Ratio 27.7 H (10-20) Glucose 127 H (70-99(Fasting)) mg/dl POC Glucose 129 H 179 H (70-99) mg/dl Calcium 9.5 (8.6-10.3) mg/dl Phosphorus 3.6 (2.5-4.9) mg/dl Magnesium 2.0 (1.7-2.4) mg/dl 09/02/24 09/02/24 Range/Units 16:42 12:15 WBC (4.8-10.8) K/ul RBC (4.20-5.40) M/uL Hgb (12.0-16.0) g/dl Hct (37.0-47.0) % MCV (80.0-100.0) fL MCH (25.0-34.0) pg MCHC (32.0-36.0) g/dL RDW Std Deviation (36.4-46.3) fL RDW Coeff of Alfie (11.5-14.5) % Plt Count (130-400) K/uL MPV (9.4-12.4) fL Sodium (136-145) mmol/L Potassium (3.5-5.1) mmol/L Chloride (98-107) mmol/L Carbon Dioxide (21-32) mmol/L Anion Gap (3-11) BUN (6-23) mg/dl Creatinine (0.6-1.2) mg/dl Est Cr Clr Drug Dosing ml/min eGFR BUN/Creatinine Ratio (10-20) Glucose (70-99(Fasting)) mg/dl POC Glucose 145 H 194 H (70-99) mg/dl Calcium (8.6-10.3) mg/dl Phosphorus (2.5-4.9) mg/dl Magnesium (1.7-2.4) mg/dl Medications Administered Current Inpatient Medications Acetaminophen (Acetaminophen 325 Mg Tab) 650 mg PO Q4H PRN PRN Reason: Pain or Fever Stop: 10/02/24 02:38 Last Admin: 09/02/24 23:04 Dose: 650 mg Dextrose (Dextrose 50% 50 Ml Syringe) 25 - 50 ml IV UD PRN; Protocol PRN Reason: Hypoglycemia Protocol Stop: 10/02/24 07:51 Enoxaparin Sodium (Enoxaparin Inj 40 Mg/0.4 Ml Syr) 40 mg SQ Q24H [facility] Stop: 10/02/24 07:59 Last Admin: 09/02/24 08:57 Dose: 40 mg Famotidine (Famotidine 20 Mg Tab) 20 mg PO DAILY [facility] Stop: 10/02/24 08:59 Last Admin: 09/03/24 10:29 Dose: Not Given Glucagon (Glucagon For Inj 1 Mg Vial) 1 mg SQ UD PRN; Protocol PRN Reason: Hypoglycemia Protocol Stop: 10/02/24 07:51 Glucose (Glucose 40% Gel 15 Gm Tube) 15 - 30 gm PO UD PRN; Protocol PRN Reason: Hypoglycemia Protocol Stop: 10/02/24 07:51 Glucose (Glucose 10 Tab/Tube) 4 - 8 tab PO UD PRN; Protocol PRN Reason: Hypoglycemia Protocol Stop: 10/02/24 07:51 Hydrochlorothiazide (Hydrochlorothiazide 25 Mg Tab) 12.5 mg PO DAILY [facility] Stop: 10/02/24 08:59 Last Admin: 09/02/24 08:57 Dose: 12.5 mg Hydromorphone HCl (Hydromorphone Inj 0.5 Mg/0.5 Ml Syr) 0.5 mg IV Q3H PRN PRN Reason: Mod-Sev Pain (Scale 4-10) Stop: 09/16/24 02:38 Last Admin: 09/03/24 04:13 Dose: 0.5 mg Insulin Aspart (Insulin Aspart Per Unit Charge) 0 units SC ACHS [facility] Stop: 10/02/24 11:29 Last Admin: 09/03/24 08:04 Dose: Not Given Labetalol HCl (Labetalol Hcl Iv 5 Mg/Ml 20ml) 10 mg IV Q4H PRN PRN Reason: Hypertension Stop: 10/02/24 02:38 Lidocaine (Lidocaine 5% 1 Patch) 1 patch TD DAILY [facility] Stop: 10/02/24 08:59 Last Admin: 09/02/24 08:59 Dose: Not Given Miscellaneous (Remove Lidoderm Patch) 1 each N/A DAILY@2100 [facility] Stop: 10/02/24 20:59 Last Admin: 09/02/24 20:49 Dose: Not Given Miscellaneous (Carbohydrates For Hypoglycemia ) 15 - 30 gm PO UD PRN PRN Reason: Hypoglycemia Protocol Stop: 10/02/24 07:51 Nitroglycerin (Nitroglycerin Sl 0.4 Mg/Tab Tab) 0.4 mg SL Q5M PRN PRN Reason: Chest Pain Stop: 10/02/24 02:38 Pantoprazole Sodium (Pantoprazole 40 Mg Tab) 40 mg PO DAILY [facility] Stop: 10/02/24 08:59 Last Admin: 09/02/24 08:58 Dose: 40 mg Polyethylene Glycol (Polyethylene (Miralax) 17 Gm Pack) 17 gm PO DAILY PRN PRN Reason: Constipation Stop: 10/02/24 02:38 Tizanidine HCl (Tizanidine Hcl 4 Mg Tablet) 2 mg PO TID [facility] Stop: 10/03/24 13:59
[2024-09-03] MEDS: tiZANidine HCL 4 MG TABLET PO SCH (14:22)
[2024-09-03] MEDS ORDERED: DEXAMETHASONE SOD INJ 4 MG/ML VIAL IV STA (14:41)
[2024-09-03] MEDS: dexAMETHasone 4 MG in SYRINGE 0 ML IV STA (15:23)
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
[2024-09-04 09:24] LABS: Hematocrit (blood only) 36.4 % (37.0-47.0); Hemoglobin 11.9 g/dl (12.0-16.0); Mean Corpuscular Hemoglobin 29.4 pg (25.0-34.0); Mean Corpuscular Hgb Conc 32.7 g/dL (32.0-36.0); Mean Corpuscular Volume 89.9 fL (80.0-100.0); Mean Platelet Volume 9.9 fL (9.4-12.4); Platelet Count 259 K/uL (130-400); RDW Coefficient of Variation 12.8 % (11.5-14.5); Red Blood Count 4.05 M/uL (4.20-5.40); White Blood Count 10.78 K/ul (4.8-10.8)
[2024-09-04 09:39] LABS: BUN Creatinine Ratio 28.6 (10-20); Calcium 9.5 mg/dl (8.6-10.3); Creatinine Clr Calc Pharmacy 88.4 ml/min; Magnesium 1.9 mg/dl (1.7-2.4); Phosphorus 2.8 mg/dl (2.5-4.9); Potassium 3.8 mmol/L (3.5-5.1)
[2024-09-04] MEDS ORDERED: GABAPENTIN 300 MG CAP PO SCH (14:00)
[2024-09-04] MEDS: BACLOFEN 10 MG TAB PO SCH (14:45)
--- NOTE | 2024-09-04 15:09 | Hospitalist Progress Note ---
Date of Service September 04, 2024 Assessment & Plan (1) Cervical radiculopathy: Plan: 52 yo Fwith past med history significant for hypertension, GERD, irritable bowel syndrome, history of tinnitus of both ears, history of anemia, history of depression, history of diabetes presents with severe neck pain radiating to the left arm and also found to have elevated blood pressure. Patient was moving things in her office when she developed sharp pain in the left cervical neck and left arm seems on 08/15/2024. She went to urgent care and also saw orthopedics on 08/18/2024. She says she was prescribed meloxicam, prednisone, tizanidine and also had MRI scan per Ortho recommendations. MRI scan showed multilevel degenerative changes of cervical spine most advanced at C5/C6 and C6/C7 levels. There is plan to follow-up with spine surgery. Above pain medication regimen did not help.. The pain was getting worse. She finished prednisone course last Wednesday. She is still taking meloxicam. Finished tizanidine. The pain was getting worse so she came to the ER today. Any movement of the left upper extremity making her pain to get worse. Even while ambulating any movement of the left upper body making the pain worse. Today in the ER she had some chest discomfort when she had a dye for CAT scan and felt short of breath and pain but those symptoms subsided now. She also found to have blood pressure running high requiring IV antihypertensives. Currently pain seems to control with pain medication. Currently no headache. Vision is okay. No runny nose or sore throat. No cough. No earaches. Appetite is okay. Currently no nausea. No abdominal pain. Somewhat constipated. Micturating okay. When she took prednisone she had some urinary incontinence and loss of taste but that all resolved after stopping prednisone. Cervical radiculopathy Pain in the left side of the neck radiating to the left arm Painful left arm movements Recently had a prednisone taper, also was on tizanidine and meloxicam but the pain is not getting better. Says has appointment with the spine surgery next week MRI done on 08/21/2024 shows:IMPRESSION "Multilevel degenerative changes of the cervical spine, most advanced at C5-C6 and C6-C7, as detailed. Spinal canal narrowing is most severe at C6-C7, and of a slightly lesser degree at C5-C6. 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 Varying degrees of bilateral neuroforaminal narrowing including severe narrowing at C5- C6 and C6-C7. High-grade left neuroforaminal narrowing at C7-T1 has slightly increased, potentially contributing to symptoms." Pain control with IV Dilaudid., Lidocaine patch Added Toradol, Decadron Pain management consulted - started Gabapentin, awaiting full report Hypertensive urgency Patient on hydrochlorothiazide at home which will continued Possible from pain and also recent steroid use IV labetalol as needed echo obtained Telemetry BP now improved Irritable bowel syndrome GERD Continue omeprazole and famotidine Diabetes Currently not on medications Will follow HbA1c levels ISS close monitor DVT prophylaxis - Lovenox Disposition - Telemetry Full code. Admission and Anticipated Discharge Date Admission Date: September 02, 2024 Subjective Pt seen in follow up of pain 2/2 cervical radiculopathy Pt sitting up in bed in NAD, still complains of LUE pain no fever, chills, chest pain, shortness of breath pain management consulted Review of Systems Review of Systems: All systems reviewed & are unremarkable except as noted in Subjective Physical Exam Physical Exam: General- Not in distress Head- atraumatic Eyes- PERRL. Neck- supple, no JVD. Lungs- clear to auscultation, no wheezing or crackles Heart- regular rate and rhythm; no murmur, no gallop. Abdomen- normal bowel sounds, soft, nontender, no distension Extremities- no pretibial edema, no erythema seen. Painful left upper extremity movements Neuro- alert, oriented PERRL, no facial palsy; no dysarthria; obeys commands Results & Data Results & Data Vital Signs (Past 12 Hours) Vital Signs Temp Pulse Pulse Resp BP Pulse Ox O2 Del Method 09/04/24 14:27 36.6 C 89 17 144/89 H 98 Room Air 09/04/24 13:58 99 H 09/04/24 10:05 133/86 09/04/24 10:04 36.7 C 87 18 133/86 93 Room Air 09/04/24 07:30 36.9 C 97 H 18 177/103 H 93 Room Air 09/04/24 07:18 80 Laboratory Results 09/04/24 09/04/24 09/04/24 Range/Units 10:51 08:57 07:22 WBC 10.78 (4.8-10.8) K/ul RBC 4.05 L (4.20-5.40) M/uL Hgb 11.9 L (12.0-16.0) g/dl Hct 36.4 L (37.0-47.0) % MCV 89.9 (80.0-100.0) fL MCH 29.4 (25.0-34.0) pg MCHC 32.7 (32.0-36.0) g/dL RDW Std Deviation 42.0 (36.4-46.3) fL RDW Coeff of Alfie 12.8 (11.5-14.5) % Plt Count 259 (130-400) K/uL MPV 9.9 (9.4-12.4) fL Sodium 137 (136-145) mmol/L Potassium 3.8 (3.5-5.1) mmol/L Chloride 100 (98-107) mmol/L Carbon Dioxide 28 (21-32) mmol/L Anion Gap 9 (3-11) BUN 22 (6-23) mg/dl Creatinine 0.77 (0.6-1.2) mg/dl Est Cr Clr Drug Dosing 88.4 ml/min eGFR 92.76 BUN/Creatinine Ratio 28.6 H (10-20) Glucose 170 H (70-99(Fasting)) mg/dl POC Glucose 195 H 125 H (70-99) mg/dl Calcium 9.5 (8.6-10.3) mg/dl Phosphorus 2.8 (2.5-4.9) mg/dl Magnesium 1.9 (1.7-2.4) mg/dl 09/03/24 09/03/24 Range/Units 20:00 16:28 WBC (4.8-10.8) K/ul RBC (4.20-5.40) M/uL Hgb (12.0-16.0) g/dl Hct (37.0-47.0) % MCV (80.0-100.0) fL MCH (25.0-34.0) pg MCHC (32.0-36.0) g/dL RDW Std Deviation (36.4-46.3) fL RDW Coeff of Alfie (11.5-14.5) % Plt Count (130-400) K/uL MPV (9.4-12.4) fL Sodium (136-145) mmol/L Potassium (3.5-5.1) mmol/L Chloride (98-107) mmol/L Carbon Dioxide (21-32) mmol/L Anion Gap (3-11) BUN (6-23) mg/dl Creatinine (0.6-1.2) mg/dl Est Cr Clr Drug Dosing ml/min eGFR BUN/Creatinine Ratio (10-20) Glucose (70-99(Fasting)) mg/dl POC Glucose 237 H 130 H (70-99) mg/dl Calcium (8.6-10.3) mg/dl Phosphorus (2.5-4.9) mg/dl Magnesium (1.7-2.4) mg/dl Medications Administered Current Inpatient Medications Acetaminophen (Acetaminophen 325 Mg Tab) 650 mg PO Q4H PRN PRN Reason: Pain or Fever Stop: 10/02/24 02:38 Last Admin: 09/03/24 20:50 Dose: 650 mg Baclofen (Baclofen 10 Mg Tab) 10 mg PO TID [facility] Stop: 10/04/24 13:59 Last Admin: 09/04/24 14:45 Dose: 10 mg Dextrose (Dextrose 50% 50 Ml Syringe) 25 - 50 ml IV UD PRN; Protocol PRN Reason: Hypoglycemia Protocol Stop: 10/02/24 07:51 Enoxaparin Sodium (Enoxaparin Inj 40 Mg/0.4 Ml Syr) 40 mg SQ Q24H [facility] Stop: 10/02/24 07:59 Last Admin: 09/04/24 09:21 Dose: 40 mg Famotidine (Famotidine 20 Mg Tab) 20 mg PO DAILY [facility] Stop: 10/02/24 08:59 Last Admin: 09/03/24 10:29 Dose: Not Given Gabapentin (Gabapentin 300 Mg Cap) 300 mg PO HS [facility] Stop: 09/04/24 21:01 Gabapentin (Gabapentin 300 Mg Cap) 300 mg PO BID [facility] Stop: 09/05/24 21:01 Gabapentin (Gabapentin 300 Mg Cap) 300 mg PO TID [facility] Stop: 10/06/24 08:59 Glucagon (Glucagon For Inj 1 Mg Vial) 1 mg SQ UD PRN; Protocol PRN Reason: Hypoglycemia Protocol Stop: 10/02/24 07:51 Glucose (Glucose 40% Gel 15 Gm Tube) 15 - 30 gm PO UD PRN; Protocol PRN Reason: Hypoglycemia Protocol Stop: 10/02/24 07:51 Glucose (Glucose 10 Tab/Tube) 4 - 8 tab PO UD PRN; Protocol PRN Reason: Hypoglycemia Protocol Stop: 10/02/24 07:51 Hydrochlorothiazide (Hydrochlorothiazide 25 Mg Tab) 12.5 mg PO DAILY [facility] Stop: 10/02/24 08:59 Last Admin: 09/04/24 09:21 Dose: 12.5 mg Hydromorphone HCl (Hydromorphone Inj 0.5 Mg/0.5 Ml Syr) 0.5 mg IV Q3H PRN PRN Reason: Mod-Sev Pain (Scale 4-10) Stop: 09/16/24 02:38 Last Admin: 09/04/24 12:13 Dose: 0.5 mg Insulin Aspart (Insulin Aspart Per Unit Charge) 0 units SC ACHS [facility] Stop: 10/02/24 11:29 Last Admin: 09/04/24 12:29 Dose: Not Given Labetalol HCl (Labetalol Hcl Iv 5 Mg/Ml 20ml) 10 mg IV Q4H PRN PRN Reason: Hypertension Stop: 10/02/24 02:38 Lidocaine (Lidocaine 5% 1 Patch) 1 patch TD DAILY [facility] Stop: 10/02/24 08:59 Last Admin: 09/04/24 09:40 Dose: Not Given Miscellaneous (Remove Lidoderm Patch) 1 each N/A DAILY@2100 [facility] Stop: 10/02/24 20:59 Last Admin: 09/03/24 20:21 Dose: Not Given Miscellaneous (Carbohydrates For Hypoglycemia ) 15 - 30 gm PO UD PRN PRN Reason: Hypoglycemia Protocol Stop: 10/02/24 07:51 Nitroglycerin (Nitroglycerin Sl 0.4 Mg/Tab Tab) 0.4 mg SL Q5M PRN PRN Reason: Chest Pain Stop: 10/02/24 02:38 Pantoprazole Sodium (Pantoprazole 40 Mg Tab) 40 mg PO DAILY [facility] Stop: 10/02/24 08:59 Last Admin: 09/04/24 09:21 Dose: 40 mg Polyethylene Glycol (Polyethylene (Miralax) 17 Gm Pack) 17 gm PO DAILY PRN PRN Reason: Constipation Stop: 10/02/24 02:38
[2024-09-04] MEDS: GABAPENTIN 300 MG CAP PO SCH (20:53)
[2024-09-04] MEDS: valACYclovir HCL 500 MG TABLET PO SCH (22:58)
[2024-09-05] MEDS: GABAPENTIN 300 MG CAP PO SCH (08:26)
--- NOTE | 2024-09-05 08:47 | Pain Management Progress Note ---
Date of Service September 05, 2024 Assessment & Plan (1) Cervical spinal stenosis: (2) Cervical cord myelomalacia: (3) Cervical radiculopathy: Plan 1. Cervical MRI images were further reviewed with Dr. Perez. At this time we do not feel that is safe to pursue cervical LENA and therefore would defer. Would recommend surgical consultation. 2. Will recommend continued use of gabapentin with progression to 3 times daily over the next 2 days 3. Will add duloxetine 30 mg every morning 4. Would recommend considering transitioning to hydrocodone for p.o. utilization for consideration of discharge planning and move away from IV hydromorphone 5. Continue with baclofen 10 mg 3 times daily scheduled 6. Pain service will sign off on patient at this time. Thank you for allowing us to participate in the care of Mrs. Amin. Admission and Anticipated Discharge Date Admission Date: September 02, 2024 Subjective Mrs. Amin is reporting persisting difficulties with left-sided neck pain extending into the shoulder and upper arm to the hand in a nondermatomal pattern with burning sensitivity characteristic pain. She reports slightly improved sleep quality last evening with use of gabapentin 300 mg patient tolerated the medication without notable side effects. Patient continues to report her pain is a 7-9/10 involving the entire left upper extremity in a nondermatomal pattern. She describes sharp, shooting and burning characteristics. She finds relief with use of IV hydromorphone for a few hours which does contribute to sedation. Patient indicates she has a plan to see Dr. Ridley in [place] at [facility] this coming Wednesday. She denies any right upper extremity radicular pattern pain. Patient reports no further constitutional complaints. Plan of care discussed with Dr. Jazmine Perez. Pain Assessment Pain Assessment Full Body Front + Back: 2 1. Left-sided neck pain extending towards shoulder 2. Left upper extremity pain to hand in nondermatomal pattern Pain scale - at its best (0-10): 5 Pain scale - at its worst (0-10): 9 Physical Exam 2 Physical Exam: General: Patient was sitting up in the exam room on the phone upon entering. She was seen utilizing her left arm/hand spreading butter on her toast upon entering the room. Once conversation was established she stopped utilizing her arm and complained of pain and difficulty utilizing the arm for any activity. Neck: Spurling's maneuver contributes to increased left-sided shoulder and upper extremity pain in nondermatomal pattern. Left upper extremity: There is no visible abnormality. She continues with allodynia and sensitivity to touch in nondermatomal pattern. Negative Fadi sign. No appreciable edema of the upper extremity. No temperature change appreciated. No sweating or skin changes appreciated. Neurologic: Cranial nerves grossly intact. Ambulation not witnessed. Results (Pain Clinic) Diagnostic Review MRI Findings: MRI films were loaded into PACS and available for review. Patient has evidence of severe central stenosis at C5-6 and C6-7. There is evidence of central canal and neuroforaminal stenosis appreciated in the mid and lower cervical regions. There is evidence of cord myelomalacia throughout the cervical region appreciated.
[2024-09-05 09:14] LABS: Hematocrit (blood only) 36.2 % (37.0-47.0); Hemoglobin 11.7 g/dl (12.0-16.0); Mean Corpuscular Hemoglobin 29.5 pg (25.0-34.0); Mean Corpuscular Hgb Conc 32.3 g/dL (32.0-36.0); Mean Corpuscular Volume 91.4 fL (80.0-100.0); Mean Platelet Volume 9.9 fL (9.4-12.4); Platelet Count 240 K/uL (130-400); RDW Standard Deviation 43.3 fL (36.4-46.3); Red Blood Count 3.96 M/uL (4.20-5.40); White Blood Count 9.12 K/ul (4.8-10.8)
[2024-09-05 09:30] LABS: BUN Creatinine Ratio 22.5 (10-20); Calcium 9.1 mg/dl (8.6-10.3); Phosphorus 3.3 mg/dl (2.5-4.9); Potassium 3.8 mmol/L (3.5-5.1)
[2024-09-05 11:39] LABS: Estimated Average Glucose 137 mg/dl; Hemoglobin A1C 6.4 % (4.5-5.6)
[2024-09-05] MEDS: POLYETHYLENE (MIRALAX) 17 GM PACK PO PRN (13:26)
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
--- NOTE | 2024-09-05 15:46 | Hospitalist Progress Note ---
Date of Service September 05, 2024 Assessment & Plan (1) Cervical radiculopathy: Plan: 52 yo Fwith past med history significant for hypertension, GERD, irritable bowel syndrome, history of tinnitus of both ears, history of anemia, history of depression, history of diabetes presents with severe neck pain radiating to the left arm and also found to have elevated blood pressure. Patient was moving things in her office when she developed sharp pain in the left cervical neck and left arm seems on 08/15/2024. She went to urgent care and also saw orthopedics on 08/18/2024. She says she was prescribed meloxicam, prednisone, tizanidine and also had MRI scan per Ortho recommendations. MRI scan showed multilevel degenerative changes of cervical spine most advanced at C5/C6 and C6/C7 levels. There is plan to follow-up with spine surgery. Above pain medication regimen did not help.. The pain was getting worse. She finished prednisone course last Wednesday. She is still taking meloxicam. Finished tizanidine. The pain was getting worse so she came to the ER today. Any movement of the left upper extremity making her pain to get worse. Even while ambulating any movement of the left upper body making the pain worse. Today in the ER she had some chest discomfort when she had a dye for CAT scan and felt short of breath and pain but those symptoms subsided now. She also found to have blood pressure running high requiring IV antihypertensives. Currently pain seems to control with pain medication. Currently no headache. Vision is okay. No runny nose or sore throat. No cough. No earaches. Appetite is okay. Currently no nausea. No abdominal pain. Somewhat constipated. Micturating okay. When she took prednisone she had some urinary incontinence and loss of taste but that all resolved after stopping prednisone. Cervical radiculopathy Pain in the left side of the neck radiating to the left arm Painful left arm movements Recently had a prednisone taper, also was on tizanidine and meloxicam but the pain is not getting better. Says has appointment with the spine surgery next week MRI done on 08/21/2024 shows:IMPRESSION "Multilevel degenerative changes of the cervical spine, most advanced at C5-C6 and C6-C7, as detailed. Spinal canal narrowing is most severe at C6-C7, and of a slightly lesser degree at C5-C6. 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 Varying degrees of bilateral neuroforaminal narrowing including severe narrowing at C5- C6 and C6-C7. High-grade left neuroforaminal narrowing at C7-T1 has slightly increased, potentially contributing to symptoms." Pain control with IV Dilaudid., Lidocaine patch initially Added Toradol, Decadron Pain management consulted - started Gabapentin, Baclofen, duloxetine , also consulted ortho-spine. Pt currently has outpt ortho-spine appointment on Wednesday - will provide CD with images for them to review. Hypertensive urgency Patient on hydrochlorothiazide at home which will be continued Possible from pain and also recent steroid use IV labetalol as needed echo obtained Telemetry BP now improved Irritable bowel syndrome GERD Continue omeprazole and famotidine Diabetes Currently not on medications Current HbA1c 6.4% ISS close monitor DVT prophylaxis - Lovenox Disposition - Telemetry Full code. Admission and Anticipated Discharge Date Admission Date: September 02, 2024 Subjective Pt seen in follow up of pain 2/2 cervical radiculopathy Pt sitting up in bed in NAD, still complains of LUE pain no fever, chills, chest pain, shortness of breath pain management , ortho spine consulted Review of Systems Review of Systems: All systems reviewed & are unremarkable except as noted in Subjective Physical Exam Physical Exam: General- Not in distress Head- atraumatic Eyes- PERRL. Neck- supple, no JVD. Lungs- clear to auscultation, no wheezing or crackles Heart- regular rate and rhythm; no murmur, no gallop. Abdomen- normal bowel sounds, soft, nontender, no distension Extremities- no pretibial edema, no erythema seen. Painful left upper extremity movements Neuro- alert, oriented PERRL, no facial palsy; no dysarthria; obeys commands Results & Data Results & Data Vital Signs (Past 12 Hours) Vital Signs Temp Pulse Pulse Resp BP Pulse Ox O2 Del Method 09/05/24 12:02 37 C 86 20 124/80 95 Room Air 09/05/24 08:14 37 C 88 19 153/90 H 98 Room Air 09/05/24 08:00 79 Laboratory Results 09/05/24 09/05/24 09/05/24 Range/Units 11:30 08:18 07:22 WBC 9.12 (4.8-10.8) K/ul RBC 3.96 L (4.20-5.40) M/uL Hgb 11.7 L (12.0-16.0) g/dl Hct 36.2 L (37.0-47.0) % MCV 91.4 (80.0-100.0) fL MCH 29.5 (25.0-34.0) pg MCHC 32.3 (32.0-36.0) g/dL RDW Std Deviation 43.3 (36.4-46.3) fL RDW Coeff of Alfie 13.0 (11.5-14.5) % Plt Count 240 (130-400) K/uL MPV 9.9 (9.4-12.4) fL Sodium 138 (136-145) mmol/L Potassium 3.8 (3.5-5.1) mmol/L Chloride 102 (98-107) mmol/L Carbon Dioxide 30 (21-32) mmol/L Anion Gap 6 (3-11) BUN 18 (6-23) mg/dl Creatinine 0.80 (0.6-1.2) mg/dl Est Cr Clr Drug Dosing 85.0 ml/min eGFR 88.60 BUN/Creatinine Ratio 22.5 H (10-20) Glucose 164 H (70-99(Fasting)) mg/dl POC Glucose 125 H 134 H (70-99) mg/dl Estimat Average Glucose mg/dl Hemoglobin A1c (4.5-5.6) % Calcium 9.1 (8.6-10.3) mg/dl Phosphorus 3.3 (2.5-4.9) mg/dl Magnesium 2.0 (1.7-2.4) mg/dl 09/04/24 09/04/24 09/02/24 Range/Units 20:16 16:10 05:16 WBC (4.8-10.8) K/ul RBC (4.20-5.40) M/uL Hgb (12.0-16.0) g/dl Hct (37.0-47.0) % MCV (80.0-100.0) fL MCH (25.0-34.0) pg MCHC (32.0-36.0) g/dL RDW Std Deviation (36.4-46.3) fL RDW Coeff of Alfie (11.5-14.5) % Plt Count (130-400) K/uL MPV (9.4-12.4) fL Sodium (136-145) mmol/L Potassium (3.5-5.1) mmol/L Chloride (98-107) mmol/L Carbon Dioxide (21-32) mmol/L Anion Gap (3-11) BUN (6-23) mg/dl Creatinine (0.6-1.2) mg/dl Est Cr Clr Drug Dosing ml/min eGFR BUN/Creatinine Ratio (10-20) Glucose (70-99(Fasting)) mg/dl POC Glucose 138 H 111 H (70-99) mg/dl Estimat Average Glucose 137 mg/dl Hemoglobin A1c 6.4 H (4.5-5.6) % Calcium (8.6-10.3) mg/dl Phosphorus (2.5-4.9) mg/dl Magnesium (1.7-2.4) mg/dl Medications Administered Current Inpatient Medications Acetaminophen (Acetaminophen 325 Mg Tab) 650 mg PO Q4H PRN PRN Reason: Pain or Fever Stop: 10/02/24 02:38 Last Admin: 09/03/24 20:50 Dose: 650 mg Baclofen (Baclofen 10 Mg Tab) 10 mg PO TID MATTHIAS Stop: 10/04/24 13:59 Last Admin: 09/05/24 10:24 Dose: 10 mg Dextrose (Dextrose 50% 50 Ml Syringe) 25 - 50 ml IV UD PRN; Protocol PRN Reason: Hypoglycemia Protocol Stop: 10/02/24 07:51 Duloxetine HCl (Duloxetine Hcl 30 Mg Cap) 30 mg PO QAM MATTHIAS Stop: 10/05/24 09:29 Enoxaparin Sodium (Enoxaparin Inj 40 Mg/0.4 Ml Syr) 40 mg SQ Q24H [facility] Stop: 10/02/24 07:59 Last Admin: 09/05/24 08:29 Dose: 40 mg Famotidine (Famotidine 20 Mg Tab) 20 mg PO DAILY [facility] Stop: 10/02/24 08:59 Last Admin: 09/03/24 10:29 Dose: Not Given Gabapentin (Gabapentin 300 Mg Cap) 300 mg PO BID [facility] Stop: 09/05/24 21:01 Last Admin: 09/05/24 08:26 Dose: 300 mg Gabapentin (Gabapentin 300 Mg Cap) 300 mg PO TID [facility] Stop: 10/06/24 08:59 Glucagon (Glucagon For Inj 1 Mg Vial) 1 mg SQ UD PRN; Protocol PRN Reason: Hypoglycemia Protocol Stop: 10/02/24 07:51 Glucose (Glucose 40% Gel 15 Gm Tube) 15 - 30 gm PO UD PRN; Protocol PRN Reason: Hypoglycemia Protocol Stop: 10/02/24 07:51 Glucose (Glucose 10 Tab/Tube) 4 - 8 tab PO UD PRN; Protocol PRN Reason: Hypoglycemia Protocol Stop: 10/02/24 07:51 Hydrochlorothiazide (Hydrochlorothiazide 25 Mg Tab) 12.5 mg PO DAILY [facility] Stop: 10/02/24 08:59 Last Admin: 09/05/24 08:30 Dose: 12.5 mg Hydromorphone HCl (Hydromorphone Inj 0.5 Mg/0.5 Ml Syr) 0.5 mg IV Q3H PRN PRN Reason: Mod-Sev Pain (Scale 4-10) Stop: 09/16/24 02:38 Last Admin: 09/05/24 13:26 Dose: 0.5 mg Insulin Aspart (Insulin Aspart Per Unit Charge) 0 units SC ACHS [facility] Stop: 10/02/24 11:29 Last Admin: 09/05/24 11:41 Dose: Not Given Labetalol HCl (Labetalol Hcl Iv 5 Mg/Ml 20ml) 10 mg IV Q4H PRN PRN Reason: Hypertension Stop: 10/02/24 02:38 Lidocaine (Lidocaine 5% 1 Patch) 1 patch TD DAILY [facility] Stop: 10/02/24 08:59 Last Admin: 09/05/24 08:48 Dose: Not Given Miscellaneous (Remove Lidoderm Patch) 1 each N/A DAILY@2100 [facility] Stop: 10/02/24 20:59 Last Admin: 09/04/24 20:56 Dose: Not Given Miscellaneous (Carbohydrates For Hypoglycemia ) 15 - 30 gm PO UD PRN PRN Reason: Hypoglycemia Protocol Stop: 10/02/24 07:51 Nitroglycerin (Nitroglycerin Sl 0.4 Mg/Tab Tab) 0.4 mg SL Q5M PRN PRN Reason: Chest Pain Stop: 10/02/24 02:38 Pantoprazole Sodium (Pantoprazole 40 Mg Tab) 40 mg PO DAILY [facility] Stop: 10/02/24 08:59 Last Admin: 09/05/24 08:30 Dose: 40 mg Polyethylene Glycol (Polyethylene (Miralax) 17 Gm Pack) 17 gm PO DAILY PRN PRN Reason: Constipation Stop: 10/02/24 02:38 Last Admin: 09/05/24 13:26 Dose: 17 gm Valacyclovir HCl (Valacyclovir Hcl 500 Mg Tablet) 500 mg PO BID [facility] Stop: 09/07/24 06:00 Last Admin: 09/05/24 08:26 Dose: 500 mg
[2024-09-05] MEDS: DULoxetine HCL 30 MG CAP PO SCH (16:39)
[2024-09-06] MEDS: oxyCODONE HCL IR 5 MG TAB (IMMEDIATE RELEASE) PO PRN (01:56)
[2024-09-06] MEDS: GABAPENTIN 300 MG CAP PO SCH (08:02)
[2024-09-06 11:42] LABS: Hematocrit (blood only) 33.3 % (37.0-47.0); Hemoglobin 10.9 g/dl (12.0-16.0); Mean Corpuscular Hemoglobin 29.7 pg (25.0-34.0); Mean Corpuscular Hgb Conc 32.7 g/dL (32.0-36.0); Mean Corpuscular Volume 90.7 fL (80.0-100.0); Mean Platelet Volume 10.2 fL (9.4-12.4); Platelet Count 230 K/uL (130-400); RDW Coefficient of Variation 12.9 % (11.5-14.5); RDW Standard Deviation 42.7 fL (36.4-46.3); Red Blood Count 3.67 M/uL (4.20-5.40); White Blood Count 7.18 K/ul (4.8-10.8)
[2024-09-06 11:58] LABS: BUN Creatinine Ratio 25.4 (10-20); Creatinine Clr Calc Pharmacy 103.9 ml/min; Potassium 3.9 mmol/L (3.5-5.1)
--- NOTE | 2024-09-06 13:32 | Hospitalist Progress Note ---
Date of Service September 06, 2024 Assessment & Plan (1) Cervical radiculopathy: Plan: Pt is a 52 yo Fwith past med history significant for hypertension, GERD, irritable bowel syndrome, history of tinnitus of both ears, history of anemia, history of depression, history of diabetes who presents with severe neck pain radiating to the left arm and also found to have elevated blood pressure. Patient was moving things in her office when she developed sharp pain in the left cervical neck and left arm seems on 08/15/2024. She went to urgent care and also saw orthopedics on 08/18/2024. She says she was prescribed meloxicam, prednisone, tizanidine and also had MRI scan per Ortho recommendations. MRI scan showed multilevel degenerative changes of cervical spine most advanced at C5/C6 and C6/C7 levels. There is a plan to follow-up with spine surgery. Cervical radiculopathy Pain in the left side of the neck radiating to the left arm Painful left arm movements Recently had a prednisone taper, also was on tizanidine and meloxicam but the pain is not getting better. Has appointment with spine surgery on Wed09/08/24 MRI done on 08/21/2024 shows:IMPRESSION "Multilevel degenerative changes of the cervical spine, most advanced at C5-C6 and C6-C7, as detailed. Spinal canal narrowing is most severe at C6-C7, and of a slightly lesser degree at C5-C6. 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 Varying degrees of bilateral neuroforaminal narrowing including severe narrowing at C5- C6 and C6-C7. High-grade left neuroforaminal narrowing at C7-T1 has slightly increased, potentially contributing to symptoms." Pain control with IV Dilaudid., Lidocaine patch initially Added Toradol, Decadron Pain management consulted, recommended/stated the following: "1. Cervical MRI images were further reviewed with Dr. Perez. At this time we do not feel that is safe to pursue cervical LENA and therefore would defer. Would recommend surgical consultation. 2. Will recommend continued use of gabapentin with progression to 3 times daily over the next 2 days 3. Will add duloxetine 30 mg every morning 4. Would recommend considering transitioning to hydrocodone for p.o. utilization for consideration of discharge planning and move away from IV hydromorphone 5. Continue with baclofen 10 mg 3 times daily scheduled..." - started Gabapentin TID, Baclofen, duloxetine Ortho-spine consulted, recommended the following: "...It is recommended that her pain be managed as best possible while inpa tient and then transition to an outpatient regimen, and this has been outlined by pain management. She should continue to keep her surgical consultation appointment with Dr. Ridley this coming Wednesday, as he has a history with the patient. No emergent surgical intervention is required at this time. Should she develop any significant balance or coordination issues, or if she were to have bowel or bladder incontinence, she should report to the nearest ED. Patient may follow-up with [facility] on an as-needed basis..." Pt agreeable to transition to po pain meds with plan for discharge on 09/07 to be able to get to her ortho spine appointment. Hypertensive urgency Patient on hydrochlorothiazide at home which will be continued Possibly from pain and also recent steroid use IV labetalol as needed echo with EF 65-70%, mod LVH Monitor on telemetry Resolved Irritable bowel syndrome GERD Continue omeprazole and famotidine Diabetes Currently not on medications Current HbA1c 6.4% ISS close monitor Diet: HH/DMII DVT prophylaxis: Lovenox Dispo: Home in the AM Admission and Anticipated Discharge Date Admission Date: September 02, 2024 Subjective pt was seen in the AM Noted that her pain was controlled though still present and inhibiting her ability to work or type Discussion with pt that her pain might not be completely resolved until definitive surgical management Pt verbalized understanding and agreement Agreeable to discharge tomorrow Review of Systems Review of Systems: All systems reviewed & are unremarkable except as noted in Subjective Physical Exam Physical Exam: General: Alert, oriented. No acute distress Psych: Appropriate mood and affect Neuro: difficulty with movements in the bed HEENT: NC/AT CV: RRR Resp: Breath sounds clear bilaterally, no increased effort of breathing Abdomen: Soft, nontender Extremities: No edema in lower extremities bilaterally. Results & Data Results & Data Vital Signs (Past 12 Hours) Vital Signs Temp Pulse Pulse Resp BP Pulse Ox O2 Del Method 09/06/24 11:50 Room Air 09/06/24 11:21 77 09/06/24 10:56 36.6 C 77 18 119/75 95 Room Air 09/06/24 07:10 36.5 C 84 20 92/61 L 98 Room Air 09/06/24 03:31 37.0 C 85 16 131/73 94 Room Air Diagnostic Findings Chest CTA 09/01/24 16:11 EXAM: CT Angiography Chest With Intravenous Contrast INDICATION: Chest pain. TECHNIQUE: Axial computed tomographic angiography images of the chest with intravenous contrast. Sagittal and coronal reformatted images were created and reviewed. This CT exam was performed using one or more of the following dose reduction techniques: automated exposure control, adjustment of the mA and/or kV according to patient size, and/or use of iterative reconstruction technique. MIP reconstructed images were created and reviewed. 116 cc Optiray 320 utilized intravenously. COMPARISON: No relevant prior studies available. FINDINGS: Pulmonary arteries: No abnormality noted. No pulmonary embolism. Aorta: No acute change noted. No thoracic aortic aneurysm or dissection. Lungs and pleural spaces: There is mild dependent atelectasis in the left lower lobe. No consolidation or pulmonary edema. No pleural effusion or pneumothorax. Heart: Cardiomegaly. Left ventricular hypertrophic change noted. The right ventricle is asymmetrically dilated slightly. No pericardial effusion. Bones/joints: Mild degenerative changes noted throughout the spine. No acute osseous abnormality. Soft tissues: Visualized bilateral breast prostheses intact. Lymph nodes: No abnormality noted. No enlarged lymph nodes. IMPRESSION: 1. Cardiomegaly with evidence of right heart dysfunction. 2. No angiographic abnormality in the chest. ACT 112: Negative or not required by law. Electronically signed by Fe Chen 09-01-2024 6:58 PM Humerus X-Ray 09/01/24 16:11 EXAM: Radiographs of the Left Humerus 2 Views INDICATION: Pain. TECHNIQUE: Frontal and lateral views of the left humerus. COMPARISON: No relevant prior studies available. FINDINGS: Limitations: None. Bones/joints: No fracture, erosion or dislocation. Soft tissues: No abnormality noted. No radiopaque foreign body noted. IMPRESSION: No abnormality noted. ACT 112: Negative or not required by law. Electronically signed by Fe Chen 09-01-2024 6:13 PM
[2024-09-07 05:49] LABS: Basophils # (auto) 0.01 K/uL (0.00-0.20); Basophils % (auto) 0.2 %; Eosinophils % (auto) 1.7 %; Hematocrit (blood only) 32.7 % (37.0-47.0); Hemoglobin 10.9 g/dl (12.0-16.0); Immature Granulocytes # (auto) 0.02 K/uL (0.01-0.20); Immature Granulocytes % (auto) 0.3 %; Lymphocytes # (auto) 2.16 K/uL (1.20-3.40); Lymphocytes % (auto) 36.9 %; Mean Corpuscular Hemoglobin 29.9 pg (25.0-34.0); Mean Corpuscular Hgb Conc 33.3 g/dL (32.0-36.0); Mean Corpuscular Volume 89.6 fL (80.0-100.0); Mean Platelet Volume 9.8 fL (9.4-12.4); Monocytes % (auto) 6.8 %; Neutrophils # (auto) 3.17 K/uL (1.40-6.50); Neutrophils % (auto) 54.1 %; Platelet Count 236 K/uL (130-400); RDW Coefficient of Variation 12.9 % (11.5-14.5); RDW Standard Deviation 42.5 fL (36.4-46.3); Red Blood Count 3.65 M/uL (4.20-5.40); White Blood Count 5.86 K/ul (4.8-10.8)
[2024-09-07 05:55] LABS: Calcium 9.2 mg/dl (8.6-10.3); Potassium 4.4 mmol/L (3.5-5.1)
[2024-09-07 06:00] LABS: BUN Creatinine Ratio 22.2 (10-20); Creatinine Clr Calc Pharmacy 96.7 ml/min
[2024-09-07 07:54] VITALS: PULSE 75
[2024-09-07 11:08] VITALS: BP 132/77; RESP 18; TEMP 98.1; O2SAT 95
--- NOTE | 2024-09-07 12:38 | Discharge Summary ---
Discharge Summary Date of Service September 07, 2024 Principal Dx & Hospital Course #1 = Principal Diagnosis (1) Cervical radiculopathy: Plan Pt is a 52 yo Fwith past med history significant for hypertension, GERD, irritable bowel syndrome, history of tinnitus of both ears, history of anemia, history of depression, history of diabetes who presents with severe neck pain radiating to the left arm and also found to have elevated blood pressure. Patient was moving things in her office when she developed sharp pain in the left cervical neck and left arm seems on 08/15/2024. She went to urgent care and also saw orthopedics on 08/18/2024. She says she was prescribed meloxicam, prednisone, tizanidine and also had MRI scan per Ortho recommendations. MRI scan showed multilevel degenerative changes of cervical spine most advanced at C5/C6 and C6/C7 levels. There is a plan to follow-up with spine surgery on 09/08/24. Cervical spinal stenosis Cervical cord myelomalacia Cervical radiculopathy Pain in the left side of the neck radiating to the left arm Painful left arm movements Recently had a prednisone taper, also was on tizanidine and meloxicam but the pain is not getting better. Has appointment with spine surgery on Wed09/08/24 MRI done on 08/21/2024 shows:IMPRESSION "Multilevel degenerative changes of the cervical spine, most advanced at C5-C6 and C6-C7, as detailed. Spinal canal narrowing is most severe at C6-C7, and of a slightly lesser degree at C5-C6. 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 Varying degrees of bilateral neuroforaminal narrowing including severe narrowing at C5- C6 and C6-C7. High-grade left neuroforaminal narrowing at C7-T1 has slightly increased, potentially contributing to symptoms." Pain control with IV Dilaudid., Lidocaine patch initially Added Toradol, Decadron Pain management consulted, recommended/stated the following: "1. Cervical MRI images were further reviewed with Dr. Perez. At this time we do not feel that is safe to pursue cervical LENA and therefore would defer. Would recommend surgical consultation. 2. Will recommend continued use of gabapentin with progression to 3 times daily over the next 2 days 3. Will add duloxetine 30 mg every morning 4. Would recommend considering transitioning to hydrocodone for p.o. ut ilization for consideration of discharge planning and move away from IV hydromorphone 5. Continue with baclofen 10 mg 3 times daily scheduled..." - started Gabapentin TID, Baclofen, duloxetine Ortho-spine consulted, recommended the following: "...It is recommended that her pain be managed as best possible while inpatient and then transition to an outpatient regimen, and this has been outlined by pain management. She should continue to keep her surgical consultation appointment with Dr. Ridley this coming Wednesday, as he has a history with the patient. No emergent surgical intervention is required at this time. Should she develop any significant balance or coordination issues, or if she were to have bowel or bladder incontinence, she should report to the nearest ED. [facility] on an as-needed basis..." On the day of discharge, patient stated that her pain was controlled though she still had some pain with certain movements. She was discharged with a regimen of gabapentin, duloxetine and baclofen. She was also discharged with as needed oxycodone 5 mg every 8 hours for severe pain. She was given a work excuse and copies of the images and advised she will need follow-up with her orthopedic spine surgeon as scheduled on the day after discharge for further definitive management. She verbalized understanding and agreement to the plan. She was also scheduled for follow-up with primary care provider for any further medication refills and follow-up as needed. Hypertensive urgency Patient on hydrochlorothiazide at home which will be continued BP increased possibly from pain and also recent steroid use IV labetalol as needed echo with EF 65-70%, mod LVH Monitor on telemetry Resolved Irritable bowel syndrome GERD Continue omeprazole and famotidine Diabetes Currently not on medications Current HbA1c 6.4% ISS close monitor PCP followup Notes For Next Care Provider Medication Changes From Visit Duloxetine 30 mg daily Gabapentin 300 mg 3 times daily Baclofen 10 mg 3 times daily Oxycodone 5 mg every 8 hours as needed for severe pain Admission HPI Per Admitting Provider 52-year-old female with past med history significant for hypertension, GERD, irritable bowel syndrome, history of tinnitus of both ears, history of anemia, history of depression, history of diabetes presents with severe neck pain radiating to the left arm and also found to have elevated blood pressure. Patient was moving things in her office when she developed sharp pain in the left cervical neck and left arm seems on 08/15/2024. She went to urgent care and also saw orthopedics on 08/18/2024. She says she was prescribed meloxicam, prednisone, tizanidine and also had MRI scan per Ortho recommendations. MRI scan showed multilevel degenerative changes of cervical spine most advanced at C5/C6 and C6/C7 levels. There is plan to follow-up with spine surgery. Above pain medication regimen did not help.. The pain was getting worse. She finished prednisone course last Wednesday. She is still taking meloxicam. Finished tizanidine. The pain was getting worse so she came to the ER today. Any movement of the left upper extremity making her pain to get worse. Even while ambulating any movement of the left upper body making the pain worse. Today in the ER she had some chest discomfort when she had a dye for CAT scan and felt short of breath and pain but those symptoms subsided now. She also found to have blood pressure running high requiring IV antihypertensives. Currently pain seems to control with pain medication. Currently no headache. Vision is okay. No runny nose or sore throat. No cough. No earaches. Appetite is okay. Currently no nausea. No abdominal pain. Somewhat constipated. Micturating okay. When she took prednisone she had some urinary incontinence and loss of taste but that all resolved after stopping prednisone. Past medical history. As mentioned above Past surgical history. Right knee arthroscopy. Breast implants. Colonoscopy and EGD. Laparoscopic right inguinal hernia repair. Ligation of oviducts. Social history. No smoking. No alcohol use. No drug use. Family history. Father had alcoholism. Daughter had collagen disease. SLE,, scleroderma, RA. Paternal grandmother had diabetes. Maternal grand mother had NC. Admission Exam Per Admitting Provider General- Not in distress Head- atraumatic Eyes- PERRL. ENT- oropharynx clear Neck- supple, no JVD. Lungs- clear to auscultation no wheezing or crackles Heart- regular rate and rhythm; no murmur, no gallop. Abdomen- normal bowel sounds, soft, nontender, no distension Extremities- no pretibial edema, no erythema seen. Painful left upper extremity movements Neuro- alert, oriented PERRL, no facial palsy; no dysarthria; obeys commands Discharge Exam General: Alert, oriented. No acute distress Psych: Appropriate mood and affect Neuro: difficulty with movements in the bed HEENT: NC/AT CV: RRR Resp: Breath sounds clear bilaterally, no increased effort of breathing Abdomen: Soft, nontender Extremities: No edema in lower extremities bilaterally. Updated Medication List Medication Instructions Recorded Confirmed Type famotidine 20 mg tablet 20 mg PO DAILY 09/02/24 09/02/24 History hydrochlorothiazide 12.5 mg capsule 12.5 mg PO DAILY 09/02/24 09/02/24 History meloxicam 15 mg tablet 15 mg PO DAILY 09/02/24 09/02/24 History omeprazole 20 mg capsule,delayed 20 mg PO DAILY 09/02/24 09/02/24 History release valacyclovir 500 mg tablet 500 mg PO UD 09/02/24 09/02/24 History baclofen 10 mg tablet 10 mg PO TID #30 tabs 09/07/24 Rx duloxetine 30 mg capsule,delayed 30 mg PO QAM #30 caps 09/07/24 Rx release gabapentin 300 mg capsule 300 mg PO TID #90 caps 09/07/24 Rx oxycodone 5 mg tablet 5 mg PO Q8H PRN severe pain (scale 09/07/24 Rx score 7-10) #10 tabs Hospital Stay Data Consultations 09/01/24 22:09 ED Decision to Admit Stat 09/02/24 08:00 Consult Pain Management Routine 09/04/24 09:09 Consult Orthopedic Spine Surgery Routine Diagnostic Imagining Performed 09/01/24 16:11 CT angio chest PE protocol Stat Chest CTA 09/01/24 16:11 EXAM: CT Angiography Chest With Intravenous Contrast INDICATION: Chest pain. TECHNIQUE: Axial computed tomographic angiography images of the chest with intravenous contrast. Sagittal and coronal reformatted images were created and reviewed. This CT exam was performed using one or more of the following dose reduction techniques: automated exposure control, adjustment of the mA and/or kV according to patient size, and/or use of iterative reconstruction technique. MIP reconstructed images were created and reviewed. 116 cc Optiray 320 utilized intravenously. COMPARISON: No relevant prior studies available. FINDINGS: Pulmonary arteries: No abnormality noted. No pulmonary embolism. Aorta: No acute change noted. No thoracic aortic aneurysm or dissection. Lungs and pleural spaces: There is mild dependent atelectasis in the left lower lobe. No consolidation or pulmonary edema. No pleural effusion or pneumothorax. Heart: Cardiomegaly. Left ventricular hypertrophic change noted. The right ventricle is asymmetrically dilated slightly. No pericardial effusion. Bones/joints: Mild degenerative changes noted throughout the spine. No acute osseous abnormality. Soft tissues: Visualized bilateral breast prostheses intact. Lymph nodes: No abnormality noted. No enlarged lymph nodes. IMPRESSION: 1. Cardiomegaly with evidence of right heart dysfunction. 2. No angiographic abnormality in the chest. ACT 112: Negative or not required by law. Electronically signed by Fe Chen 09-01-2024 6:58 PM Humerus X-Ray 09/01/24 16:11 EXAM: Radiographs of the Left Humerus 2 Views INDICATION: Pain. TECHNIQUE: Frontal and lateral views of the left humerus. COMPARISON: No relevant prior studies available. FINDINGS: Limitations: None. Bones/joints: No fracture, erosion or dislocation. Soft tissues: No abnormality noted. No radiopaque foreign body noted. IMPRESSION: No abnormality noted. ACT 112: Negative or not required by law. Electronically signed by Fe Chen 09-01-2024 6:13 PM Discharge Instructions Given to Patient (Per Discharging Provider) Megan, You were seen and treated for severe pain related to cervical spine stenosis. You have an appointment scheduled tomorrow with your spine surgeon to discuss definitive management of your pain. Please keep that appointment as this is pacheco to helping permanently with your pain. In the meantime please continue with the medications suggested by the pain medicine service at [facility]. Please continue with the gabapentin, baclofen, and Cymbalta prescribed. Please use the as needed oxycodone only for additional severe pain if the other 3 medications are not helping. [id number] Tylenol and ibuprofen can also provide synergistic relief to your pain. Please keep close follow-up with your primary care provider after discharge and for continued renewals of your medications. We have set you up with follow-up with Dr. Diop who is an excellent primary care provider in the area. He will certainly help you as you transition out of the hospital for definitive management of your cervical spine stenosis alongside your spinal surgeon. Please do not hesitate to come back to the emergency room if your symptoms worsen or return. It was a pleasure taking care of you while you were here. Total Time Total Time Spent Total Time Spent (In Minutes): 65
== END 2024-09-07 18:22 | disposition home or self-care (01) | DRG 74 ==
LOC: ED 13:43 → EDINP 09-02 01:31 → SUATTDRO 09-02 01:31 → 2S 09-02 13:49